=== PATIENT | female | born 1980 | race Two or more races ===

== ENCOUNTER → 2023-09-03 11:19 | Emergency (ER) | payer MEDICAID, OTHER, SELFPAY ==
[2023-09-05 22:53] LABS: C. trachomatis RNA TMA NOT DETECTED (NOT DETECTED); N. gonorrhoeae RNA TMA NOT DETECTED (NOT DETECTED)
== END ==
PROVIDERS: Emergency Provider Emergency Medicine
DX: R10.2 Pelvic and perineal pain (principal); L29.2 Pruritus vulvae
CPT/HCPCS: 36415; 81513; 87491; 87591; 99283

== ENCOUNTER 2023-09-03 15:55 | Emergency (ER) | payer MEDICAID, OTHER, SELFPAY ==
[2023-09-03 16:03] VITALS: BP 145/68; PULSE 82; RESP 18; TEMP 36.1; O2SAT 100
[2023-09-03 16:30] LABS: Appearance Urine Clear; Color Urine Yellow; Glucose Urine UA Negative (Negative); Leukocyte Esterase Urine Trace (Negative); Nitrite Urine Negative (Negative); Specific Gravity - Urine 1.015 (1.005-1.025); UMIC TRIGGER UACC YES; Urine Blood Trace (Negative); Urine Ketones Negative (Negative); Urine Protein Negative (Neg-Trace)
[2023-09-03 16:35] LABS: Bacteria Urine None Seen (None Seen); Hyaline Casts Urine 0-2 /LPF (0-2); WBC Urine 0-5 /HPF (0-5)
[2023-09-03 19:27] LABS: MANUAL DIFF FLAG NO
[2023-09-03 19:28] LABS: Basophils Absolute Auto 0.1 X10*3/uL (0.0-0.2); Basophils Percent Auto 0.9 % (0-2); Eosinophils Absolute Auto 0.3 X10*3/uL (0.0-0.4); Eosinophils Percent Auto 3.4 % (0-4); Hematocrit 43.6 % (37.0-47.0); Hemoglobin 14.2 g/dl (12.0-16.0); Imm Gran Abs Auto 0.01 X10*3/uL (0.00-0.03); Imm Gran Pct Auto 0.1 % (0.0-0.4); Lymphocytes Absolute Auto 3.1 X10*3/uL (1.2-4.9); Lymphocytes Percent Auto 39.4 % (20-40); Mean Corpuscular HGB Conc 32.6 g/dl (31.0-35.0); Mean Corpuscular Hemoglobin 28.9 pg (27.0-33.0); Mean Corpuscular Volume 88.8 fL (80.0-98.0); Mean Platelet Volume 9.3 fL (9.4-12.3); Monocytes Absolute Auto 0.6 X10*3/uL (0.1-1.2); Monocytes Percent Auto 7.4 % (2-11); Neutrophils Absolute Auto 3.8 x10*3/uL (2.0-8.3); Neutrophils Percent Auto 48.8 % (45-73); Platelet Count 393 X10*3/uL (160-400); Red Blood Count 4.91 X10*6/uL (4.20-5.50); Red Cell Distribution Width 13.5 % (11.0-16.0); White Blood Count 7.8 X10*3/uL (4.8-10.8)
[2023-09-03 19:45] LABS: Alanine Aminotransferase 26 U/L (0-31); Albumin Level 4.6 g/dL (3.5-5.0); Alkaline Phosphatase 56 U/L (39-117); Anion Gap 15 (12-20); Aspartate Amino Transferase 21 U/L (5-31); Bilirubin Total 0.6 mg/dL (0.0-1.0); Blood Urea Nitrogen 8 mg/dL (9-16); Calcium 9.7 mg/dL (8.4-10.2); Carbon Dioxide 22 mmol/L (22-29); Chloride 107 mmol/L (96-108); Creatinine Clr Calc Pharmacy 114.2; Estimated Glomerular Filt Rate > 60; Glucose Random 89 mg/dL (60-115); Potassium 3.5 mmol/L (3.3-5.1); Sodium 140 mmol/L (135-145); Total Protein 8.6 g/dL (6.5-8.0)
--- NOTE | 2023-09-04 01:19 | ED.FEMALEGU ---
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 Patient reports the last 3-4 months she has had intermittent lower back pain and pelvic pressure. She has had some occasional nausea and vomiting. She has also had some vaginal itching, vaginal discharge and vaginal discomfort. She moved here from [facility] 2 months ago. She was seen at [facility] this morning and had a pelvic exam and testing for gonorrhea, chlamydia and a BV panel but she does not know the results yet. Per patient she was told to come to the hospital to have lab work done. She tells me she misunderstood this and came to the emergency room instead. She denies any urinary symptoms. No fevers, chills, diarrhea, constipation. She is sexually active with 1 male partner. She has not concern for STDs. She is currently on Depo and received her last injection in June and has not had a menstrual cycle since then. Prior to this she was having regular menstrual cycles. She tells me she had been getting Pap smears in [facility] which were normal. Related Data Previous Rx's Medication Instructions Recorded clotrimazole 2 % vaginal cream 1 appful vaginal BEDTIME 3 days 09/04/23 #21 grams Allergies Allergy/AdvReac Type Severity Reaction Status Date / Time No Known Allergies Allergy Verified 09/03/23 16:02 Review of Systems Review of Systems: Yes all other systems are reviewed and are negative Constitutional: Constitutional: Reports no additional constitutional complaints, Denies body ache(s), Denies chills, Denies fever(s), Denies headache(s) and Denies weakness Eyes: Eyes: Reports no additional eye complaints and Denies change in vision ENT: Reports system reviewed and no additional complaints, except as documented, Denies dizziness, Denies headache(s), Denies nasal congestion, Denies nasal discharge and Denies neck pain Cardiovascular: Cardiovascular: Reports no additional cardiovascular complaints, Denies chest pain, Denies leg edema and Denies dyspnea Respiratory: Respiratory: Reports no additional respiratory complaints, Denies cough and Denies dyspnea Gastrointestinal: Gastrointestinal: Reports no additional gastrointestinal complaints, Denies abdominal pain, Denies diarrhea, Denies nausea and Denies vomiting Genitourinary: Genitourinary: Reports no additional female genitourinary complaints, Reports pelvic pain, Denies urinary incontinence, Reports vaginal discharge and Reports vaginal pruritus Musculoskeletal: Musculoskeletal: Reports no additional musculoskeletal complaints, Reports back pain, Denies arthralgias, Denies joint swelling, Denies neck pain, Denies numbness and Denies tingling Integumentary/Breasts: Skin/Breast: Reports system reviewed and no additional complaints, except as docu and Denies rash Neurologic: Reports system reviewed and no additional complaints, except as documented, Denies Abnormal speech present, Denies dizziness, Denies headache(s), Denies numbness, Denies tingling and Denies weakness PMFSH Past Medical History Attestation statement: The following information was validated with the patient. Source: old records reviewed and nursing notes reviewed Social History Social History Smoked in Last 30 Days: No Use of substances other than those prescribed or required for medical reasons: No Advance Directives: No Advance Directives Information Provided: No Patient : No Physical Exam Vital Signs: Vital Signs: Last Vital Signs Temp 97 F 09/03/23 16:03 Pulse 82 09/03/23 16:03 Resp 18 09/03/23 16:03 BP 145/68 H 09/03/23 16:03 Pulse Ox 100 09/03/23 16:03 O2 Del Method Room Air 09/03/23 16:03 BMI result Body Mass Index 30.0 Const: General: cooperative, healthy appearing, comfortable and no acute distress Orientation/consciousness: patient oriented x3 Limitations: no limitations HEENT: Head: Yes normal to inspection Ears: hearing grossly normal bilaterally General nose exam: Normal external nose present Face and sinus: Yes normal facial exam Mouth: Normal oral and palatal mucosa present Throat: Yes posterior oropharynx normal Eyes: General: appearance normal, both eyes and all related structures Pupils: Equal, round and reactive pupils present Neck: Neck: Yes normal visual inspection Chest: Chest palpation & inspection: normal inspection of the chest Resp: Effort & Inspection: normal respiratory effort Auscultation: clear to auscultation bilaterally Cardio: Rate: regular rate Rhythm: regular rhythm Peripheral pulses: Peripheral pulses 2+ throughout GI: Inspection: Yes normal to inspection Palpation (GI): Soft to palpation and nontender Auscultation: normal bowel sounds : 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 General: Yes no CVA tenderness External Female Exam: external swelling (erythema, scant vaginal discharge ) Back/Spine/Pelvis: Back: no CVA tenderness Thoracic/Lumbar Spine: thoracic and lumbar spine normal to inspection Skin: General skin exam: no rashes or lesions noted Neuro: General: patient oriented x3, no focal motor deficits and normal sensation to monofilament Cranial nerves: Yes Equal, round and reactive pupils present Cognition (Neuro): normal cognition Speech: No Abnormal speech present Gait exam (Neuro): Normal gait present Motor exam (neuro): 5/5 motor strength present throughout Extrem: General: Yes normal to inspection Course Course Course Narrative: Labs are unremarkable. UA shows no signs infection. Physical exam is consistent with vaginitis. Patient has no focal abdominal pain or flank pain to suggest need for CT abdomen and pelvis or pelvic ultrasound. She has low concern for STI and does not want treatment until she knows were her results are. She had a pelvic exam this morning I do not believe that she needs a repeat pelvic exam. Additionally I have low suspicion for pelvic inflammatory disease, tubo-ovarian abscess or ovarian torsion. Patient overall nontoxic, tolerating p.o.. I will discharge her home with clotrimazole topical with recommendations to continue to follow-up with [facility]. Reviewed worrisome signs and symptoms of when to return to the emergency room. Comfortable plan for discharge home. Medical Decision Making Medical Decision Making [facility] Narrative: 42-year-old female with no known medical history presents to the ER with multiple complaints. Patient reports the last 3-4 months she has had intermittent lower back pain and pelvic pressure. She has had some occasional nausea and vomiting. She has also had some vaginal itching, vaginal discharge and vaginal discomfort. She moved here from [facility] 2 months ago. She was seen at [facility] this morning and had a pelvic exam and testing for gonorrhea, chlamydia and a BV panel but she does not know the results yet. Per patient she was told to come to the hospital to have lab work done. She tells me she misunderstood this and came to the emergency room instead. She denies any urinary symptoms. No fevers, chills, diarrhea, constipation. She is sexually active with 1 male partner. She has not concern for STDs. She is currently on Depo and received her last injection in June and has not had a menstrual cycle since then. Prior to this she was having regular menstrual cycles. She tells me she had been getting Pap smears in [facility] which were normal. No focal abdominal pain on exam. No CVA tenderness. External vagina has swelling, irritation and scant vaginal discharge consistent with Lindsey. Patient had labs and a UA ordered from triage which I will review. Her swabs from her pelvic exam this morning from her primary care still pending. Differential Diagnosis Differential Diagnoses: The differential diagnosis associated with the presentation includes Vaginitis, STI, UTI Low concern for PID, tubo-ovarian abscess, ovarian torsion, renal colic, pyelonephritis Lab Data MDM Lab Attestation statement: I reviewed the patient's lab results. Unremarkable 09/03/23 19:22 09/03/23 19:22 Labs: Lab Results 09/03/23 09/03/23 Range/Units 16:17 19:22 WBC 7.8 (4.8-10.8) X10*3/uL RBC 4.91 (4.20-5.50) X10*6/uL Hgb 14.2 (12.0-16.0) g/dl Hct 43.6 (37.0-47.0) % MCV 88.8 (80.0-98.0) fL MCH 28.9 (27.0-33.0) pg MCHC 32.6 (31.0-35.0) g/dl RDW 13.5 (11.0-16.0) % Plt Count 393 (160-400) X10*3/uL MPV 9.3 L (9.4-12.3) fL Immature Gran % (Auto) 0.1 (0.0-0.4) % Neut % (Auto) 48.8 (45-73) % Lymph % (Auto) 39.4 (20-40) % [place] % (Auto) 7.4 (2-11) % Eos % (Auto) 3.4 (0-4) % Baso % (Auto) 0.9 (0-2) % Lymph # (Auto) 3.1 (1.2-4.9) X10*3/uL [place] # (Auto) 0.6 (0.1-1.2) X10*3/uL Eos # (Auto) 0.3 (0.0-0.4) X10*3/uL Baso # (Auto) 0.1 (0.0-0.2) X10*3/uL Abs Immat Gran (auto) 0.01 (0.00-0.03) X10*3/uL Absolute Neuts (auto) 3.8 (2.0-8.3) x10*3/uL Absolute Nucleated RBC 0.000 (0.0-0.012) X10*3/uL Nucleated RBC % (auto) 0.0 (0.0-0.2) /100WBC Sodium 140 (135-145) mmol/L Potassium 3.5 (3.3-5.1) mmol/L Chloride 107 (96-108) mmol/L Carbon Dioxide 22 (22-29) mmol/L Anion Gap 15 (12-20) BUN 8 L (9-16) mg/dL Creatinine 0.67 (0.5-1.4) mg/dL Estim Creat Clear Calc 114.2 Estimated GFR > 60 Random Glucose 89 (60-115) mg/dL Calcium 9.7 (8.4-10.2) mg/dL Total Bilirubin 0.6 (0.0-1.0) mg/dL AST 21 (5-31) U/L ALT 26 (0-31) U/L Alkaline Phosphatase 56 (39-117) U/L Total Protein 8.6 H (6.5-8.0) g/dL Albumin 4.6 (3.5-5.0) g/dL Urine Color Yellow Urine Appearance Clear Urine pH 6.0 (5.0-9.0) Ur Specific [place] 1.015 (1.005-1.025) Urine Protein Negative (Neg-Trace) mg/dL Urine Glucose (UA) Negative (Negative) mg/dL Urine Ketones Negative (Negative) mg/dL Urine Blood Trace H (Negative) Urine Nitrite Negative (Negative) Ur Leukocyte Esterase Trace H (Negative) Urine RBC 3-5 H (0-2) /HPF Urine WBC 0-5 (0-5) /HPF Ur Squamous Epith Cells 3-5 (0-2) /HPF Urine Bacteria None Seen (None Seen) Hyaline Casts 0-2 (0-2) /LPF Independent Historian Clinical information obtained from an independent historian. History obtained from or confirmed by: Spouse Discharge Plan Discharge Clinical Impression: Vaginitis Patient Disposition: Home, Self-Care Instructions: Yeast Infection (ED) Additional Instructions: Your blood work is normal Your swabs sent from the [facility] earlier are still pending We are treating you for a yeast infection Tu an?lisis de elsy es normal. Mayda hisopos enviados anteriormente desde [facility] [place] a?n est?n pendientes Te estamos tratando por amira candidiasis Prescriptions: New clotrimazole 2 % cream 1 appful vaginal BEDTIME 3 Days Qty: 21 0RF Referrals: Physician,None [Primary Care Provider] - 1 week Print Language: Slovak
--- NOTE | 2023-09-04 01:37 | PC.NURSE ---
On assessment pt stating that [facility] sent pt here for labwork only, not full exam. pt staes they had pelvic exam at [facility], and only requested labs to be completed. Provider notified.
== END 2023-09-04 02:01 | disposition home or self-care (01) ==
PROVIDERS: Emergency Medicine; Emergency Provider Internal Medicine
DX: N76.0 Acute vaginitis (principal)
CPT/HCPCS: 36415; 80053; 81001; 85025; 99283; 99284

== ENCOUNTER 2024-01-26 17:56 | Outpatient (REF) | payer MEDICAID, OTHER, SELFPAY ==
[2024-01-28 08:08] LABS: C. trachomatis RNA TMA NOT DETECTED (NOT DETECTED); Candida glabrata RNA NOT DETECTED (NOT DETECTED); Candida species RNA NOT DETECTED (NOT DETECTED); N. gonorrhoeae RNA TMA NOT DETECTED (NOT DETECTED); Trichomonas vaginalis RNA NOT DETECTED (NOT DETECTED)
[2024-01-31 03:44] LABS: C. trachomatis RNA TMA NOT DETECTED (NOT DETECTED); N. gonorrhoeae RNA TMA NOT DETECTED (NOT DETECTED)
[2024-01-31 09:18] LABS: HPV mRNA E6/E7 rflx Not Detected (Not Detected)
== END 2024-01-26 17:57 | disposition home or self-care (01) ==
LOC: HO.LNP 17:56
PROVIDERS: Visit Provider Emergency Medicine
DX: R10.30 Lower abdominal pain, unspecified (principal)
CPT/HCPCS: 81513; 87481; 87491; 87591; 87624; 87661; 88142

== ENCOUNTER 2024-02-17 11:03 | Outpatient (REF) | payer MEDICAID, OTHER, SELFPAY ==
--- NOTE | ~2024-02-17 | MM_ITS ---
EXAMINATION: MM SCREENING DIGITAL BREAST TOMOSYNTHESIS, BILATERAL CLINICAL INFORMATION: Screening. Asymptomatic. COMPARISON: Mammography: This is a baseline study. TECHNIQUE: Digital breast tomosynthesis is performed in both the craniocaudal and mediolateral oblique views along with computer-aided detection (CAD). Synthesized 2D images are generated from the tomosynthesis. FINDINGS: There are scattered areas of fibroglandular density (ACR BI-RADS breast composition Category b). There are no significant masses, abnormal calcifications, or other abnormalities. MM/MM tomosynthesis screening BI IMPRESSION: No mammographic evidence of malignancy. ASSESSMENT: BI-RADS BI-RADS 1 - Negative RECOMMENDATION: Routine annual mammography screening. 1 year F/U This examination should not preclude the clinical evaluation of a suspicious palpable abnormality. This patient's information was entered into a reminder system with a target due date for their next mammogram.
== END 2024-02-17 11:04 | disposition home or self-care (01) ==
LOC: HO.MAMMO 11:03
PROVIDERS: PCP Advanced Practice Midwife; Visit Provider Emergency Medicine
DX: Z12.31 Encounter for screening mammogram for malignant neoplasm of breast (principal)
CPT/HCPCS: 77063; 77067

== ENCOUNTER → 2024-02-17 11:30 | Outpatient (BNV) | payer SELFPAY | PROVIDERS: PCP Advanced Practice Midwife; Visit Provider Radiology Diagnostic Radiology | DX: Z12.31 Encounter for screening mammogram for malignant neoplasm of breast (principal) | CPT/HCPCS: 77063; 77067 ==

== ENCOUNTER 2025-01-11 10:23 | Outpatient (REF) | payer SELFPAY ==
[2025-01-11 11:18] LABS: Appearance Urine Turbid; Color Urine Yellow; Glucose Urine UA Negative (Negative); Leukocyte Esterase Urine Negative (Negative); Nitrite Urine Negative (Negative); Specific Gravity - Urine >= 1.030 (1.005-1.025); UMIC TRIGGER UACC YES; Urine Blood Small (1+) (Negative); Urine Ketones Trace mg/dL (Negative); Urine Protein Negative (Neg-Trace)
[2025-01-11 11:26] LABS: Bacteria Urine Trace (None Seen); Hyaline Casts Urine 0-2 /LPF (0-2); WBC Urine 0-5 /HPF (0-5)
[2025-01-11 11:27] LABS: MANUAL DIFF FLAG NO
[2025-01-11 11:31] LABS: Basophils Absolute Auto 0.1 X10*3/uL (0.0-0.2); Basophils Percent Auto 0.6 % (0-2); Eosinophils Absolute Auto 0.1 X10*3/uL (0.0-0.4); Eosinophils Percent Auto 1.7 % (0-4); Hematocrit 40.1 % (37.0-47.0); Imm Gran Abs Auto 0.03 X10*3/uL (0.00-0.03); Imm Gran Pct Auto 0.4 % (0.0-0.4); Lymphocytes Absolute Auto 2.3 X10*3/uL (1.2-4.9); Lymphocytes Percent Auto 28.8 % (20-40); Mean Corpuscular HGB Conc 32.4 g/dl (31.0-35.0); Mean Corpuscular Hemoglobin 28.6 pg (27.0-33.0); Mean Corpuscular Volume 88.1 fL (80.0-98.0); Mean Platelet Volume 10.2 fL (9.4-12.3); Monocytes Absolute Auto 0.5 X10*3/uL (0.1-1.2); Monocytes Percent Auto 6.3 % (2-11); Neutrophils Percent Auto 62.2 % (45-73); Platelet Count 424 X10*3/uL (160-400); Red Blood Count 4.55 X10*6/uL (4.20-5.50); Red Cell Distribution Width 14.1 % (11.0-16.0); White Blood Count 8.1 X10*3/uL (4.8-10.8)
[2025-01-11 11:50] LABS: Estimated Average Glucose 111 mg/dL; Hemoglobin A1c % 5.5 % (<6.0); Total Hemoglobin (HGBA1C) 3430.4172 umol/L
[2025-01-11 11:58] LABS: Alanine Aminotransferase 39 U/L (0-31); Albumin Level 4.3 g/dL (3.5-5.0); Alkaline Phosphatase 64 U/L (39-117); Anion Gap 11 (12-20); Aspartate Amino Transferase 29 U/L (5-31); Bilirubin Total 0.5 mg/dL (0.0-1.0); Blood Urea Nitrogen 10 mg/dL (9-16); Calcium 8.8 mg/dL (8.4-10.2); Carbon Dioxide 25 mmol/L (22-29); Chloride 108 mmol/L (96-108); Estimated Glomerular Filt Rate > 60; Glucose Random 91 mg/dL (60-115); Potassium 3.9 mmol/L (3.3-5.1); Sodium 140 mmol/L (135-145); Total Protein 8.1 g/dL (6.5-8.0)
[2025-01-11 12:18] LABS: TSH reflex Free T4 1.18 uIU/mL (0.32-4.0)
--- OUTSIDE RECORDS SUMMARY | 2025-01-11 12:35 | XMS_ITS | Encounter Summary ---
Author Organization [employer] Address [address] [place] [address] Care Team Providers Care Interface Engineer Name Role Phone Mary Lou Guzman MD Primary Care Provider [phone] Encounter Details Date Type Department Care Team (Latest Contact Info) Description 01/11/2025 Travel Social History Tobacco Use Types Packs/Day Years Used Date Smoking Tobacco: Never Passive Smoke Exposure: Never Smokeless Tobacco: Never Alcohol Use Standard Drinks/Week Comments Not Currently 0 (1 standard drink = 0.6 oz pur e alcohol) Depression Answer Date Recorded Patient Health Questionnaire-9 Score 0 01/11/2025 Patient Health Questionnaire-9 Score 0 01/11/2025 Last PHQ-9: Questionnaire Data Not on file 0 01/11/2025 Housing Stability Answer Date Recorded What is your housing situation today? I have pati jose 01/11/[address] you li ve. Do you have problems with any of the following? None of the above 01/11/2025 Food Insecurity Answer Date Recorded Within the past 12 months, y ou worried that your food would run out before you got money to buy more: Never True 12/30/2024 Within the past 12 months,th e food you bought just didn't last and you didn't have enough money to get more: Never True Transportation Answer Date Recorded In the past 12 months, has l ack of transportation kept you from medical appts, meetings, work or from getting things needed for daily living? No 01/11/2025 Utilities Answer Date Recorded In the past 12 months, has t he electric, gas, oil or water company threatened to shut off services in your home? No 12/30/2024 Depression Answer Date Recorded Patient Health Questionnaire-2 Score 0 01/11/2025 Internet Access Answer Date Recorded Internet Access Q1 Yes 12/30/2024 Internet Access Q2 Not on file 12/30/2024 Comments No Sex and Gender Information Value Date Recorded Sex Assigned at Female 09/03/2023 8:51 AM EDT Legal Sex Female 8:48 AM EDT Gender Identity Female 09/03/2023 8:51 AM EDT Sexual Orientation Straight 08/09/2024 12 :11 PM EDT documented as of this encounter Plan of Treatment Not on file documented as of this encounter Visit Diagnoses Not on filedocumented in this encounter Additional Health Concerns Assessment Noted Time PHQ-9 Depression Total Score: 0 01/12/20 9:20 AM EST documented as of this encounter Care Teams Interface Engineer Relationship Specialty Start Date End Date Mary Lou Guzman MD [address] [place] [address] PCP - General Family Medicine 01/11/25 documented as of this encounter
--- OUTSIDE RECORDS SUMMARY | 2025-01-11 12:36 | XMS_ITS | Encounter Summary ---
Author Organization [employer] Address [address] [place] [address] Care Team Providers Care Photostat Operator Name Role Phone Unavailable Primary Care Provider Unavailabl e Reason for Visit * Reason Comments Pre-visit Planning SDOH screening negat elvis and tobacco screening negative Encounter Details Date Type Department Care Team ([facility] st Contact Info) Description 12/30/2024 Patient Outreach [facility] [address] [place] [address] Mary Lou Guzman MD [address] [place] [address] Pre-visit Planning (SDOH screening negative and tobacco screening negative) Social History Tobacco Use Types Packs/Day Years Used Date Smoking Tobacco: Never Passive Smoke Exposure: Never Smokeless Tobacco: Never Alcohol Use Standard Drinks/Week Comments Not Currently 0 (1 standard drink = 0.6 oz pur e alcohol) Depression Answer Date Recorded Patient Health Questionnaire-9 Score 9 08/09/2024 Patient Health Questionnaire-9 Score 9 08/09/2024 Last PHQ-9: Questionnaire Data Not on file 0 08/09/2024 Housing Stability Answer Date Recorded What is your housing situation today? I have housing today, but I am worried about losing housing in the future 12/30/[address] you li ve. Do you have problems with any of the following? I am not sure 12/30/2024 Food Insecurity Answer Date Recorded Within the [...] from getting things needed for daily living? Yes, it has kept me from non-medical meetings, work, or getting things that I need 12/30/2024 Utilities Answer Date Recorded In the past 12 months, has t he electric, gas, oil or water company threatened to shut off services in your home? No 12/30/2024 Depression Answer Date Recorded Patient Health Questionnaire-2 Score 4 08/09/2024 Internet Access Answer Date Recorded Internet Access Q1 Yes 12/30/2024 Internet Access Q2 Not on file 12/30/2024 Comments Unknown Sex and Gender Information Value Date Recorded Sex Assigned at Female 09/03/2023 8:51 AM EDT Legal Sex Female 8:48 AM EDT Gender Identity Female 09/03/2023 8:51 AM EDT Sexual Orientation Straight 08/09/2024 12 :11 PM EDT documented as of this encounter Progress Notes * Smiley Tan - 12/30/2024 9:38 AM EST CC Smiley placed successful outbound call to patient for pre-visit planning. Patient name and confirmed. Patient confirms date and time, and has transportation arrangements. Biggest concern for appointment at this time is abdominal pain Appropriate screening completed in anticipation of appointment. Patient advised to bring to appointment a photo id and insurance card, SDCA positive. Patient looking for assistance with housing, transportation Referral will be placed. documented in this encounter Plan of Treatment Not on file documented as of this encounter Visit Diagnoses Not on filedocumented in this encounter Additional Health Concerns Assessment Noted Time PHQ-9 Depression Total Score: 9 08/09/20 24 2:02 PM EDT documented as of this encounter
--- OUTSIDE RECORDS SUMMARY | 2025-01-11 12:36 | XMS_ITS | Encounter Summary ---
Author Organization [employer] Address [address] [place] [address] Care Team Providers Care Bilingual Case Manager Name Role Phone Unavailable Primary Care Provider Unavailabl e Reason for Visit * Reason Comments Care Coordination CHW outreach for SDO H housing search-referral completed Encounter Details Date Type Department Care Team (Latest Contact Info) Description 12/30/2024 Patient Outreach [facility] [address] [place] [address] Mary Lou Guzman MD [address] [place] [address] Care Coordination (CHW outreach for SDOH housing search-referral completed ) Social History Tobacco Use Types Packs/Day Years [...] as of this encounter Progress Notes * Kelvin Villanueva - 12/30/2024 10:42 AM EST CHW Kelvin Villanueva, placed outbound call to patient for assistance with SDOH as a referral was received by the provider. Patient's name and were confirmed. Patient screened positive for the following SDOH housing insecurities. CHW referred patient to list of housing and applications mail out to address on file. Patient verbalizes understanding, and able to agree to follow up with housing search and call. Patient educated on extended clinic hours on Mondays through Wednesdays, and Walk-In Urgent Care Located in [facility]. Patient provided with after-hours line for [facility], , which offer night time triage service and option to transfer to extractions technician provider if needed. documented in this encounter Plan of Treatment Not on file documented as of this encounter Visit Diagnoses Not on filedocumented in this encounter Additional Health Concerns Assessment Noted Time PHQ-9 Depression Total Score: 9 08/09/20 24 2:02 PM EDT documented as of this encounter
--- OUTSIDE RECORDS SUMMARY | 2025-01-11 12:36 | XMS_ITS | Encounter Summary ---
Author Organization [employer] Address [address] [place] [address] [place] [address] Care Team Providers Care Associate Professor Of Violin Name Role Phone Unavailable Primary Care Provider Unavailabl e Reason for Visit * Reason Comments Routine Cleaning Dental Exam Encounter Details Date Type Department Care Team ([facility] st Contact Info) Description 01/03/2025 9:00 AM EST Office Visit [facility] [address] [place] [address] Kaylen Ortega Dental calculus (Primary Dx); Dental plaque; Subgingival dental calculus Social History Tobacco Use Types Packs/Day Years [...] PM EDT documented as of this encounter Last Filed Vital Signs Vital Sign Reading Time Taken Comments Blood Pressure 122/82 01/03/2025 8:53 AM EST Pulse - - Temperature - - Respiratory Rate - - Oxygen Saturation - - Inhaled Oxygen Concentration - - Weight - - Height - - Body Mass Index - - documented in this encounter Progress Notes * Jeremiah Jade DMD - 01/03/2025 9:00 AM EST C/C: dental exam and cold sensitivity at LR molar for a while I.O.E: localized plaque accumulation, sensitive to percussion and air of #30 E.O.E: wnl OCS: wnl Head and neck: wnl Radiographic: gen moderate periodontal bone loss, localized calculus accumulation, close to pulp filling #30 Dx: gen chronic moderate periodontitis, pulpitis #30 Tx: prophy, recall, endo consult #[address] Comfort Mcdaniel * Kaylen Ortega - 01/03/2025 9:00 AM EST Patient ID: Kathya Jo is a 44 y.o. female. Time Out: Timeout Date: 01/03/25, Timeout Time: 0849 (Dental Prophy Adult) Location: [facility] Tooth: Maxilla and Mandible Procedure: Exam and Prophylaxis Verified the above with patient, metallurgical laboratory assistant, and provider. Confirmed via patient's chart, intraorally and by radiographs. Health And Safety Trainer: not applicable Medical Hx: Vitals: Blood pressure 122/82. Medications, Med Hx reviewed with patient and updated in chart. Treatment Provided Dental procedures in this visit D1110 - PROPHYLAXIS - ADULT (Completed) Service provider: Kaylen Ortega Billing provider: Jeremiah Jade DMD D0120 - PERIODIC ORAL EVALUATION - ESTABLISHED PATIENT (Completed) Service provider: Jeremiah Jade DMD Billing provider: Jeremiah Jade DMD [id number] - ORAL HYGIENE INSTRUCTIONS (Completed) Service provider: Kaylen Ortega Billing provider: Jeremiah Jade DMD [id number] - CASE PRESENTATION, DETAILED AND EXTENSIVE TREATMENT PLANNING (Completed) Service provider: Kaylen Ortega Billing provider: Jeremiah Jade DMD Instruments Used: Ultrasonic Scalers, Hand Scalers, Prophy angle, and floss Fluoride: N/A Oral Cancer Screening: No lesions Head/Neck Exam: No Lesions Calculus: Moderate and Generalized Plaque: Moderate and Generalized Stain: Light and Generalized Bleeding: Heavy and Generalized Gingiva: Inflamed [place]: Poor Perio Chart: Not due Oral hygiene instructions provided to patient including brushing technique and flossing. Recommendations: [place] two times daily, modified martin technique, Floss daily, Electric toothbrush, Soft bristle toothbrush, [place] Tongue, Anti-sensitivity toothpaste Recall Frequency: 6 mo NV: 6mrc Hygienist: Kaylen Ortega RDH Cosigned by Jeremiah Jade DMD at 01/06/2025 9:23 AM EST documented in this encounter Plan of Treatment Scheduled Orders Name Type Priority Associated Diagnoses Orde r Schedule CONSULTATION - DIAGNOSTIC SERVICE PROVIDED BY DENTIST OR PHYSICIAN OTHER THAN REQUESTING DENTIST OR PHYSICIAN Dental Routine 1 Occurrenc es starting 01/03/2025 PROPHYLAXIS - ADULT Dental Routine 1 Occ urrences starting 01/03/2025 documented as of this encounter Procedures Procedure Name Priority Date/Time Associated Diagnosis Comments PROPHYLAXIS - ADULT Routine 01/03/2025 9 :00 AM EST Dental calculus Dental plaque Subgingival dental calculus PERIODIC ORAL EVALUATION - ESTABLISHED PATIENT Routine 01/03/2025 9:00 AM EST ORAL HYGIENE INSTRUCTIONS Routine 01/03/2025 9:00 AM EST Dental calculus Dental plaque Subgingival dental calculus CASE PRESENTATION, DETAILED AND EXTENSIVE TREATMENT PLANNING Routine 01/03/2025 9:00 AM EST documented in this encounter Visit Diagnoses Diagnosis Dental calculus- Primary Accretions on teeth Dental plaque Accretions on teeth Subgingival dental calculus Accretions on teeth documented in this encounter Additional Health Concerns Assessment Noted Time PHQ-9 Depression Total Score: 9 08/09/20 24 2:02 PM EDT documented as of this encounter
--- OUTSIDE RECORDS SUMMARY | 2025-01-11 12:36 | XMS_ITS | Clinical Summary ---
Author Organization [employer] Address [address] [place] [address] Care Team Providers Care Wood Grinder Name Role Phone Mary Lou Guzman MD Primary Care Provider [phone] Allergies No known active allergies Medications * This document contains information received from the source organization and may not represent a complete record from that organization. Blood Pressure Monitoring (Omron 3 Series BP Monitor) device USE TO CHECK BLOOD PRESSURE TWICE DAILY 09/03/20 Active Debrox 6.5 % otic solution PLACE 5 DROPS IN THE RIGHT EAR TWICE DAILY FOR FOUR DAYS 09/03/20 23 Active 3 Day Vaginal 2 % vaginal cream APPLY VAGINALLY AT BEDTIME FOR 3 DAYS 09/05/20 23 Active acetaminophen (Tylenol) 500 MG tabletIndications :Symptomatic irreversible pulpitis Take 1 tablet (500 mg) by mouth every 6 (six) hours if needed for mild pain for up to 15 doses. 15 tablet 01/27/20 24 Active Additional Information Patient not taking.Reported on 01/03/2025 hydrOXYzine pamoate (Vistaril) 25 MG capsule Take 1 capsule (25 mg) by mouth if needed at bedtime for anxiety. 30 capsule 07/19/20 24 Active medroxyPROGESTERo ne (Depo-Provera) 150 MG/ML injection Inject 1 mL (150 mg) into the muscle every 3 (three) months. 1 mL 05/24/20 24 025 Discontin ued(Thera py completed ) omeprazole OTC (PriLOSEC OTC) 20 MG EC tablet Take 1 tablet (20 mg) by mouth before breakfast. Do not crush, chew, or split. 30 tablet 07/19/20 24 025 Discontin ued(Thera py completed ) medroxyPROGESTERo ne (Depo-Provera) 150 MG/ML injectionIndicati ons:Family planning, Depo-Provera contraception monitoring/admini stration Inject 1 mL (150 mg) into the muscle every 3 (three) months. 1 mL 08/09/20 24 025 Discontin ued(Thera py completed ) Active Problems Problem Noted Date Diagnosed Date Adjustment disorder with anxious mood 07/19/2024 Assessment & Plan (08/09/2024 2:51 PM EDT): During IBH Consult Kathya presenting with depressed mood, hopelessness, irritable mood, loss of interests/pleasure , sense of isolation/loneliness , isolating, fatigue/loss of energy; for a period of 0-6 mo, for most or all symptoms in the context of and family issues. Patient's grandmother in [place] last month. Kathya wasn't able to travel and do proper closure. Since then, she has felt grief symptoms with no complication and increase of anxiety. Pt would like to connect with CM to assist with SDOH. I will place referral for CM. Due to limited coverage, pt is unable to seek OP services externally, clinician will provide support as needed. clinician engaged pt with active/reflective listening, validation of emotions and provided emphatic approach. Reviewed and assessed for risk, current stressors and protective factors. Assessment & Plan (07/26/2024 10:20 AM EDT): During IBH Consult Kathya presenting with excessive worry/anxiety, anxiety/worry associated to restlessness and/or feeling keyed-up/On edge , difficulty concentrating and/or mind going blank , irritability, and sleep disturbance difficulty falling asleep, and Fear intense feeling of sadness, anger and denial associated with the loss of her grandmother; for a period of 0-6 mo, for most or all symptoms in the context of and relationship issues. Kathya presented to [facility] with medical concerns and anxiety presentation of sxs. She reported her grandmother a week ago in [place]. Kathya wasn't able to travel and do proper closure. Since then she has felt bereavement symptoms with no complication and increase of anxiety. Difficulty to adjusting and accepting is main concern for pt. Lack of social support and complicated relationship with her is also identified as main trigger. clinician engaged pt with active/reflective listening, validation of emotions and provided emphatic approach. Reviewed and assessed for risk, current stressors and protective factors. Kathya will start medication for sxs (see PCP note) and will follow-up with clinician due to lack of coverage for services. Bereavement 07/19/2024 Assessment & Plan (08/09/2024 2:51 PM EDT): During IBH Consult Kathya presenting with depressed mood, hopelessness, irritable mood, loss of interests/pleasure , sense of isolation/loneliness , isolating, fatigue/loss of energy; for a period of 0-6 mo, for most or all symptoms in the context of and family issues. Patient's grandmother in [place] last month. Kathya wasn't able to travel and do proper closure. Since then, she has felt grief symptoms with no complication and increase of anxiety. Pt would like to connect with CM to assist with SDOH. I will place referral for CM. Due to limited coverage, pt is unable to seek OP services externally, clinician will provide support as needed. clinician engaged pt with active/reflective listening, validation of emotions and provided emphatic approach. Reviewed and assessed for risk, current stressors and protective factors. Assessment & Plan (07/26/2024 10:20 AM EDT): During IBH Consult Kathya presenting with excessive worry/anxiety, anxiety/worry associated to restlessness and/or feeling keyed-up/On edge , difficulty concentrating and/or mind going blank , irritability, and sleep disturbance difficulty falling asleep, and Fear intense feeling of sadness, anger and denial associated with the loss of her grandmother; for a period of 0-6 mo, for most or all symptoms in the context of and relationship issues. Kathya presented to [facility] with medical concerns and anxiety presentation of sxs. She reported her grandmother a week ago in [place]. Kathya wasn't able to travel and do proper closure. Since then she has felt bereavement symptoms with no complication and increase of anxiety. Difficulty to adjusting and accepting is main concern for pt. Lack of social support and complicated relationship with her is also identified as main trigger. clinician engaged pt with active/reflective listening, validation of emotions and provided emphatic approach. Reviewed and assessed for risk, current stressors and protective factors. Kathya will start medication for sxs (see PCP note) and will follow-up with clinician due to lack of coverage for services. Hepatitis B 01/26/2024 Assessment & Plan (01/26/2024 12:24 PM EDT): -patient reported history -labs ordered Pain of both breasts 01/26/2024 Assessment & Plan (01/26/2024 12:03 PM EDT): -pain may be due to remnants of menses -will treat symptoms with naproxen 250 mg two times daily -mammogram screening ordered -RTC if symptoms worsen; redness, hot to touch, skin changes, or nipple drainage present. Lower abdominal pain 01/26/2024 Assessment & Plan (01/26/2024 12:00 PM EDT): -pain my be due to menses -possible infection based on assessment findings -pelvic exam, pap and STI test completed -will provide treatment if infection present -pelvic and transvaginal US ordered for structural visualization -RTC with worsening symptoms, changes in bowel habits, vaginal discharge, or fever Encounters * This document contains information received from the source organization and may not represent a complete record from that organization. Date Type Department Care Team Description 01/11/2025 9:45 AM EST Office Visit [facility] [address] [place] [phone] Mary Lou Guzman MD Lower abdominal pain (Primary Dx); Encounter for immunization 01/11/2025 Travel 01/03/2025 9:00 AM EST Office Visit [facility] [address] [place] [address] Kaylen Ortega Dental calculus (Primary Dx); Dental plaque; Subgingival dental calculus 12/30/2024 Patient Outreach [facility] [address] [place] [address] Mary Lou Guzman MD Care Coordination (CHW outreach for SDSC housing search-referral completed ) 12/30/2024 Patient Outreach [facility] [address] [place], [place] [phone] Mary Lou Guzman MD Pre-visit Planning (SDOH screening negative and tobacco screening negative) from Last 3 Months Immunizations Name Administration Dates Next Due Influenza, seasonal, injectable, preservative fr ee 01/11/2025 Pfizer Covid-19 Vaccine 12+ 01/11/2025 Social History Tobacco Use Types Packs/Day Years Used Date Smoking Tobacco: Never Passive Smoke Exposure: Never Smokeless Tobacco: Never Tobacco Cessation:Counseling Given: Not Answered Alcohol Use Standard Drinks/Week Comments Not Currently [...] Orientation Straight 08/09/2024 12 :11 PM EDT Last Filed Vital Signs Vital Sign Reading Time Taken Comments Blood Pressure 130/79 01/11/2025 9:18 AM EST Pulse 86 01/11/2025 9:18 AM EST Temperature 37.1 ??C (98.7 ??F) 01/11/2025 9:18 AM ES T Respiratory Rate 20 01/11/2025 9:18 AM EST Oxygen Saturation 100% 01/11/2025 9:18 AM EST Inhaled Oxygen Concentration - - Weight 86.6 kg (191 lb) 01/11/2025 9:18 AM EST Height 158.9 cm (5' 2.55 ) 01/11/2025 9:18 AM ES T Body Mass Index 34.32 01/11/2025 9:18 AM EST Plan of Treatment Health Maintenance Due Date Last Done Comments HIV Screening 1980 Family Planning (PISQ) 1996 Hepatitis C Screening 1999 DTaP/Tdap/Td Vaccines (1 - Tdap) 2000 Hepatitis A Vaccines (1 of 2 - Risk 2-dose series) 2000 Hepatitis B Vaccines (1 of 3 - 19+ 3-dose series) 2000 Dental X-Ray: Bitewings 05/25/2025 05/24/2024 Dental Oral Exam 07/04/2025 01/03/2025, 05/24/2024 Dental Prophylaxis 07/04/2025 01/03/2025, 06/22/2024 Alcohol/Substance Use Screening 01/11/2026 01/11/2025 Depression Screening 01/11/2026 01/11/2025, 01/11/2025 SDOH Screening 01/11/2026 01/11/2025 Tobacco Screening 01/11/2026 01/11/2025 Mammogram 02/16/2026 02/17/2024 Pap Smear 01/25/2027 01/26/2024 Dental X-Ray: Full Mouth 05/25/2027 05/24/2024 Cervical Cancer Screening 01/25/2029 HPV/Cotest 01/25/2029 01/26/2024 Zoster Vaccines (1 of 2) 2031 RSV Patients and Patients Aged 60 years or older (1 - 1-dose 75+ series) 2056 COVID-19 Vaccine Completed 01/11/2025 Influenza Vaccine Completed 01/11/2025 HIB Vaccines Aged Out No longer eligi ble based on patient's age to complete this topic HPV Vaccines Aged Out No longer eligi ble based on patient's age to complete this topic IPV Vaccines Aged Out No longer eligi ble based on patient's age to complete this topic Meningococcal Vaccine Aged Out No randall marcos eligible based on patient's age to complete this topic Pneumococcal Vaccine: Pediatrics (0 to 5 Years) and At-Risk Patients (6 to 49) Years) Aged Out No longer eligible b ased on patient's age to complete this topic RSV under 20 months Aged Out No longe r eligible based on patient's age to complete this topic Rotavirus Vaccines Aged Out No longer eligible based on patient's age to complete this topic Procedures Procedure Name Priority Date/Time Associated Diagnosis Comments URINALYSIS, COMPLETE, WITH REFLEX TO CULTURE Routine 01/11/2025 10:27 AM EST Lower abdominal pain HEMOGLOBIN A1C Routine 01/11/2025 10:27 AM EST Lower abdominal pain COMPREHENSIVE METABOLIC PANEL Routine 01/11/2025 10:27 AM EST Lower abdominal pain CBC WITH AUTO DIFFERENTIAL Routine 01/11/2025 10:27 AM EST Lower abdominal pain TSH W/REFLEX TO FT4 Routine 01/11/2025 1 0:27 AM EST Lower abdominal pain ORAL HYGIENE INSTRUCTIONS Routine 01/03/2025 9:00 AM EST Dental calculus Dental plaque Subgingival dental calculus CASE PRESENTATION, DETAILED AND EXTENSIVE TREATMENT PLANNING Routine 01/03/2025 9:00 AM EST PROPHYLAXIS - ADULT Routine 01/03/2025 9 :00 AM EST Dental calculus Dental plaque Subgingival dental calculus PERIODIC ORAL EVALUATION - ESTABLISHED PATIENT Routine 01/03/2025 9:00 AM EST INTRAORAL - COMPLETE SERIES OF RADIOGRAPHIC IMAGES Routine 05/24/2024 10:30 AM EDT BI MAMMOGRAM SCREENING TOMOSYNTHESIS BILATERAL Routine 02/17/2024 11:35 AM EDT Encounter for screening mammogram for malignant neoplasm of breast HPV MRNA E6/E7 REFLEX TO HPV 16, 18/45 Routine 01/26/2024 2:03 PM EDT PAP SMEAR Routine 01/26/2024 2:03 PM EDT from Last 3 Months or Most Recently Relevant to Health Maintenance Results * (ABNORMAL) Urinalysis, Complete, with Reflex to Culture (01/11/2025 10:27 AM EST) Color Urine Yellow [facility] Appearance Urine Turbid [facility] PH 6.0 5.0 - 9.0 [facility] Glucose Urine UA Negative Negative mg/dL [facility] Urine Blood Small (1+)(A) Negative [facility] Specific [place] - Urine >=1.030(H) 1.005 - 1.025 [facility] Urine Protein Negative Neg-Trace mg/dL [facility] Urine Ketones Trace Negative mg/dL [facility] Nitrite Urine Negative Negative [facility] Leukocyte Esterase Urine Negative Negative [facility] RBC Urine 3-5(A) 0 - 2 /HPF [facility] Urine WBC 0-5 0 - 5 /HPF [facility] Urine Squamous Epithelial Cell 6-10 0 - 2 /HPF [facility] Urine Bacteria Trace None Seen [facility] Hyaline Casts, Urine 0-2 0 - 2 /LPF [facility] Urine 01/11/2025 10:2 7 AM EST 01/11/2025 11:12 AM EST Narrative [facility] - 01/11/2025 11:26 AM EST Urine, Clean Catch us Mary Lou Guzman MD LAB URINE ORDERABLES Final Res ult [facility] [address] [place] [address] [phone] * TSH W/Reflex to FT4 (01/11/2025 10:27 AM EST) TSH reflex Free T4 1.18 0.32 - 4.0 uIU/mL [facility] Blood Venous blood specimen / Unknown 01/11/2025 10:27 AM EST 01/11/2025 11:24 AM EST us Mary Lou Guzman MD LAB BLOOD ORDERABLES Final Res ult [facility] [address] [place] [address] [phone] * (ABNORMAL) CBC auto differential (01/11/2025 10:27 AM EST) White Blood Count 8.1 4.8 - 10.8 X10*3/uL [facility] Red Blood Count 4.55 4.20 - 5.50 X10*6/uL [facility] Hemoglobin 13.0 12.0 - 16.0 g/dl [facility] Hematocrit 40.1 37.0 - 47.0 % [facility] Mean Corpuscular Volume 88.1 80.0 - 98.0 fL [facility] Mean Corpuscular Hemoglobin 28.6 27.0 - 33.0 pg [facility] Mean Corpuscular HGB Conc 32.4 31.0 - 35.0 g/dl [facility] Red Cell Distribution Width 14.1 11.0 - 16.0 % [facility] Platelet Count 424(H) 160 - 400 X10*3/uL [facility] Mean Platelet Volume 10.2 9.4 - 12.3 fL [facility] Neutrophils Percent Auto 62.2 45 - 73 % [facility] Imm Gran Pct Auto 0.4 0.0 - 0.4 % [facility] Lymphocytes Percent Auto 28.8 20 - 40 % [facility] Monocytes Percent Auto 6.3 2 - 11 % [facility] Eosinophils Percent Auto 1.7 0 - 4 % [facility] Basophils Percent Auto 0.6 0 - 2 % [facility] NRBC Pct Auto 0.0 0.0 - 0.2 /100WBC [facility] Neutrophils Absolute Auto 5.0 2.0 - 8.3 x10*3/uL [facility] Imm Gran Abs Auto 0.03 0.00 - 0.03 X10*3/uL [facility] Lymphocytes Absolute Auto 2.3 1.2 - 4.9 X10*3/uL [facility] Monocytes Absolute Auto 0.5 0.1 - 1.2 X10*3/uL [facility] Eosinophils Absolute Auto 0.1 0.0 - 0.4 X10*3/uL [facility] Basophils Absolute Auto 0.1 0.0 - 0.2 X10*3/uL [facility] NRBC Abs Auto 0.000 0.0 - 0.012 X10*3/uL [facility] Blood Venous blood specimen / Unknown 01/11/2025 10:27 AM EST 01/11/2025 11:24 AM EST us Mary Lou Guzman MD LAB BLOOD ORDERABLES Final Res ult [facility] [address] [place] [phone] * Hemoglobin A1c (01/11/2025 10:27 AM EST) Hemoglobin A1c 5.5 <6.0 % [facility] Comment:Hemoglobin A1C Refer ence Range Adults: 4.8 - 6.0 % Non diabetic: < 6.0 % Goal: < 7.0 %Additional Action Suggested: > 8.0 %Note: Hemoglobin A1c results are invalid for patients with abnormal amounts of HbF. Blood transfusions may impact the HbA1c concentration in the patient sample. Estimated Average Glucose 111 mg/dL [facility] Comment:eAG = Estimated ave rage glucose which is %A1C expressed asaverage glucose, using the formula of the [id number] Glucose study (ADAG), Diabetes Care, Vol.31,#8,Jun. 2007 Blood Venous blood specimen / Unknown 01/11/2025 10:27 AM EST 01/11/2025 11:24 AM EST Mary Lou Guzman MD LAB BLOOD ORDERABLES Final Res ult [facility] [address] [place] [address] [phone] * (ABNORMAL) Comprehensive Metabolic Panel (01/11/2025 10:27 AM EST) Sodium 140 135 - 145 mmol/L [facility] Potassium 3.9 3.3 - 5.1 mmol/L [facility] Chloride 108 96 - 108 mmol/L [facility] Carbon Dioxide 25 22 - 29 mmol/L [facility] Anion Gap 11(L) 12 - 20 [facility] Urea Nitrogen (BUN) 10 9 - 16 mg/dL [facility] Creatinine, Serum 0.64 0.5 - 1.4 mg/dL [facility] Estimated Glomerular Filt Rate >60 [facility] Comment:Chronic Kidney Disea se: Estimated GFR < 60 mL/min/[id number] Kidney Disease: Estimated GFR < 15 mL/min/1.73m2 Glucose 91 60 - 115 mg/dL [facility] Calcium 8.8 8.4 - 10.2 mg/dL [facility] Bilirubin, Total 0.5 0.0 - 1.0 mg/dL [facility] Aspartate Amino Transferase 29 5 - 31 U/L [facility] Alanine Aminotransferase 39(H) 0 - 31 U/L [facility] Total Protein 8.1(H) 6.5 - 8.0 g/dL [facility] Albumin Level 4.3 3.5 - 5.0 g/dL [facility] Alkaline Phosphatase 64 39 - 117 U/L [facility] Blood Venous blood specimen / Unknown 01/11/2025 10:27 AM EST 01/11/2025 11:24 AM EST Mary Lou Guzman MD LAB BLOOD ORDERABLES Final Res ult [facility] [address] [place] [phone] * BI Mammogram Screening Tomosynthesis Bilateral (02/17/2024 11:35 AM EDT) Anatomical Region Laterality Modality Breast Bilateral Mammography 02/17/2024 11:3 5 AM EDT Narrative 02/23/2024 5:34 AM EDT ? [facility] [place] ? [address] ?[place] [phone] ? Mammography Report ? Signed ? Patient: Kathya Hair ?MR#: [id number] ?? [id number] ? : 1980 ?Acct:[id number] ? Age/Sex: 43 / F ?ADM Date: 02/17/24 ? Loc: HO.MAMMO ? Attending Dr: Catherine Mcadams APPLIED BIOLOGY PROFESSOR ? Ordering Physician: CATHERINE MCADAMS APPLIED BIOLOGY PROFESSOR ?Results: 1Negati ?? ve ? Date of Service: 02/17/24 ?Follow Up: 1 Year From Orig ?? inal Mammogram ? Procedure(s): MM tomosynthesis screening BI ?? Accession Number(s): [id number] ? cc: CATHERINE MCADAMS APPLIED BIOLOGY PROFESSOR; GASPER PHILLIPS CNM ? EXAMINATION: ?? MM SCREENING DIGITAL BREAST TOMOSYNTHESIS, BILATERAL ? CLINICAL INFORMATION: ? Screening. Asymptomatic. ? COMPARISON: ?? Mammography: This is a baseline study. ? TECHNIQUE: ?? Digital breast tomosynthesis is performed in both the craniocaudal and ?? mediolateral oblique views along with computer-aided detection (CAD). ?? Synthesized 2D images are generated from the tomosynthesis. ? FINDINGS: ?? There are scattered areas of fibroglandular density (ACR BI-RADS breast ?? composition Category b). ? There are no significant masses, abnormal calcifications, or other ?? abnormalities. ? MM/MM tomosynthesis screening BI ?? IMPRESSION: ?? No mammographic evidence of malignancy. ? ASSESSMENT: ? BI-RADS BI-RADS 1 - Negative ? RECOMMENDATION: ?? Routine annual mammography screening. ? 1 year F/U ? This examination should not preclude the clinical evaluation of a ?? suspicious palpable abnormality. ? This patient's information was entered into a reminder system with a ?? target due date for their next mammogram. ? Dictated By: ?Silvia Barnett MD ? Signed By: ?<Electronically signed by Silvia Barnett MD in OV> ? 02/23/24 0530 ? DD/ 1135 ? TD/TT: ? Area Attendant: ? Procedure Note Boris, Image - 02/23/2024 [facility] [address] [place] [address] Mammography Report Signed Patient: Moreno Hair#: [id number] : 1980Acct:[id number] Age/Sex: 43 / FADM Date: 02/17/24 Loc: [facility] Attending Dr: Catherine Mcadams NP Ordering Physician: CATHERINE MCADAMSesults: 1Negati grayson Date of Service: 02/17/24Follow Up: 1 Year From Orig inal Mammogram Procedure(s): MM tomosynthesis screening BI Accession Number(s): [id number] cc: CATHERINE MCADAMS APPLIED BIOLOGY PROFESSOR; GASPER PHILLIPS CNM EXAMINATION: MM SCREENING DIGITAL BREAST TOMOSYNTHESIS, BILATERAL CLINICAL INFORMATION: Screening. Asymptomatic. COMPARISON: Mammography: This is a baseline study. TECHNIQUE: Digital breast tomosynthesis is performed in both the craniocaudal and mediolateral oblique views along with computer-aided detection (CAD). Synthesized 2D images are generated from the tomosynthesis. FINDINGS: There are scattered areas of fibroglandular density (ACR BI-RADS breast composition Category b). There are no significant masses, abnormal calcifications, or other abnormalities. MM/MM tomosynthesis screening BI IMPRESSION: No mammographic evidence of malignancy. ASSESSMENT: BI-RADS BI-RADS 1 - Negative RECOMMENDATION: Routine annual mammography screening. 1 year F/U This examination should not preclude the clinical evaluation of a suspicious palpable abnormality. This patient's information was entered into a reminder system with a target due date for their next mammogram. Dictated By: Silvia Barnett MD Signed By: <Electronically signed by Silvia Barnett MD in OV> 02/23/24 0530 DD/ 1135 TD/TT: Area Attendant: Catherine Mcadams [facility] BI PROCEDURES Final Result * HPV mRNA E6/E7 w/Reflex to HPV Genotypes 16, 18/45 (01/26/2024 2:03 PM EDT) HPV nRNA E6/E7 Not Detected Not Detected [facility] Comment:Methodology: Transcr iption-Mediated AmplificationThis assay detects E6/E7 viral messenger RNA (mRNA) from 14high-risk HPV types (16,18,31,33,35,39,45,51,52,56,58,59,66,68).Cervical sources are required for HPV testing.If a vaginal source from a patient who has had atotal hysterectomy with removal of cervix wassubmitted, please contact the testing laboratoryfor alternative testing options.For additional information, please refer [email or web address](This link if provided for information/educational purposes only.)THIS TEST WAS PERFORMED AT:[address] [place] [phone] OMER MD HPV mRNA E6/E7 TNP [facility] HPV 16 RNA TNP [facility] HPV 18/45 RNA TNP [facility] 01/26/2024 2:03 PM EDT 01/27/2024 10:20 AM EDT us Catherine Mcadams SPREADING MACHINE OPERATOR LAB CYTOLOGY ORDERABLES Final Result [facility] [address] [place] [phone] * Pap Smear (01/26/2024 2:03 PM EDT) 01/26/2024 2:03 PM EDT 01/27/2024 10:20 AM EDT Narrative [facility] - 02/06/2024 6:54 AM EDT ----- ------- Name: Kathya Hair ? Age/Sex: 43/F ? : 1980 Unit#: [id number] ?? Attend Dr: CATHERINE MCADAMS APPLIED BIOLOGY PROFESSOR ?Re01/26/24 ?Status: DEP REF ? Location: HO.LNP ?Disch: ? ----- ------- SPEC : [id number] ? RECD: 01/27/24-1020 ? STATUS: ??SOUT ? REQ NUM: [id number] ? ROYA: 01/26/24-1403 ? SUBM DR: CATHERINE MCADAMS APPLIED BIOLOGY PROFESSOR ? ENTERED: ??01/27/24-1221 ?SP TYPE: Pap Smr ?OTHR DR: ? ORDERED: ??Pap Smear ? Interpretation ?? Satisfactory for evaluation. ?? Negative for intraepithelial lesion or malignancy. ?HPV mRNA E6/E7: ?NOT DETECTED ? This assay detects E6/E7 viral messenger RNA (mRNA) from 14 high-risk HPV types (16, 18, ?? 31, 33, 35, 39, 45, 51, 52, 56, 58, 59, 66, 68) ?? HPV testing performed by [employer], [place], [place]. ??See reference laboratory ?? portion of the EMR for entire report. ?Clinical Information LMP: 01/20/2024 Previous PAP test: Unknown date, WNL Other history: No known hx of HPV or ASCUS, lower abdominal pain ? Material Received ?? ThinPrep-Vaginal/Cervical ----- ------- Signed (signature on file) ARUN Meeks (ASCP) 02/06/24 0654 ? ----- ------- ? END OF REPORT ? us Catherine Mcadams SPREADING MACHINE OPERATOR LAB CYTOLOGY ORDERABLES Final Result [facility] [address] [place], [place] [phone] from Last 3 Months or Most Recently Relevant to Health Maintenance Insurance [employer] [employer] [place] ADULT Care Teams Wood Grinder Relationship Specialty Start Date End Date Mary Lou Guzman MD [address] [place] [phone] PCP - General Family Medicine 01/11/25
--- OUTSIDE RECORDS SUMMARY | 2025-01-11 12:36 | XMS_ITS | Encounter Summary ---
Author Organization [employer] Address [address] [place] [address] Care Team Providers Care Contract Processor Name Role Phone Mary Lou Guzman MD Primary Care Provider [phone] Reason for Visit * Reason Comments Establish Care Encounter Details Date Type Department Care Team (Late st Contact Info) Description 01/11/2025 9:45 AM EST Office Visit [facility] [address], [place] [phone] Mary Lou Guzman MD [address] [place], [place] [phone] Lower abdominal pain (Primary Dx); Encounter for immunization Social History Tobacco Use Types Packs/Day Years [...] 37.1 ??C (98.7 ??F) 01/11/2025 9:[address] Respiratory Rate 20 01/11/2025 9:18 AM EST Oxygen Saturation 100% 01/11/2025 9:18 AM EST Inhaled Oxygen Concentration - - Weight 86.6 kg (191 lb) 01/11/2025 9:18 AM EST Height 158.9 cm (5' 2.55 ) 01/11/2025 9:18 AM ES T Body Mass Index 34.32 01/11/2025 9:18 AM EST documented in this encounter Plan of Treatment Scheduled Orders Name Type Priority Associated Diagnoses Orde r Schedule Bacterial Vaginosis Panel Microbiology Routine Lower abdominal pain Ordered: 01/11/2025 HIV-1/2 Antigen and Antibodies, Fourth Generation, with Reflexes Lab Routine Lower abdominal pain Expected: 01/11/2025 (Approximate), Expires: 01/11/2026 Hepatitis C Antibody with Reflex to HCV, RNA, Quantitative, Real-Time PCR Lab Routine Lower abdominal pain Expected: 01/11/2025, Expires: 01/11/2026 documented as of this encounter Procedures Procedure Name Priority Date/Time Associated Diagnosis Comments URINALYSIS, COMPLETE, WITH REFLEX TO CULTURE Routine 01/11/2025 10:27 AM EST Lower abdominal pain TSH W/REFLEX TO FT4 Routine 01/11/2025 1 0:27 AM EST Lower abdominal pain CBC WITH AUTO DIFFERENTIAL Routine 01/11/2025 10:27 AM EST Lower abdominal pain HEMOGLOBIN A1C Routine 01/11/2025 10:27 AM EST Lower abdominal pain COMPREHENSIVE METABOLIC PANEL Routine 01/11/2025 10:27 AM EST Lower abdominal pain documented in this encounter Results * (ABNORMAL) Urinalysis, Complete, with Reflex to Culture (01/11/2025 10:27 AM EST) Color Urine Yellow [facility] Appearance Urine Turbid [facility] PH 6.0 5.0 - 9.0 [facility] Glucose Urine UA Negative Negative mg/dL [facility] Urine Blood Small (1+)(A) Negative [facility] Specific [place] - Urine >=1.030(H) 1.005 - 1.025 [facility] Urine Protein Negative Neg-Trace mg/dL [facility] Urine Ketones Trace Negative mg/dL [facility] Nitrite Urine Negative Negative [facility] Leukocyte Esterase Urine Negative Negative [facility] RBC Urine 3-5(A) 0 - 2 /HPF [facility] Urine WBC 0-5 0 - 5 /HPF [facility] Urine Squamous Epithelial Cell 6-10 0 - 2 /HPF [facility] Urine Bacteria Trace None Seen [facility] Hyaline Casts, Urine 0-2 0 - 2 /LPF [facility] Urine 01/11/2025 10:2 7 AM EST 01/11/2025 11:12 AM EST Narrative [facility] - 01/11/2025 11:26 AM EST Urine, Clean Catch us Mary Lou Guzman MD LAB URINE ORDERABLES Final Res ult Performing Organization Address [facility] Co de Phone Number [facility] [address] [place] [address] [phone] * Hemoglobin A1c (01/11/2025 10:27 AM EST) Hemoglobin A1c 5.5 <6.0 % [facility] Comment:Hemoglobin A1C Refer ence Range Adults: 4.8 - 6.0 % Non diabetic: < 6.0 % Goal: < 7.0 %Additional Action Suggested: > 8.0 %Note: Hemoglobin A1c results are invalid for patients with abnormal amounts of HbF. Blood transfusions may impact the HbA1c concentration in the patient sample. Estimated Average Glucose 111 mg/dL [facility] Comment:eAG = Estimated ave rage glucose which is %A1C expressed asaverage glucose, using the formula of the [id number] Glucose study (ADAG), Diabetes Care, Vol.31,#8,Jun. 2007 Blood Venous blood specimen / Unknown 01/11/2025 10:27 AM EST 01/11/2025 11:24 AM EST us Mary Lou Guzman MD LAB BLOOD ORDERABLES Final Res ult Performing Organization Address [facility] Co de Phone Number [facility] [address] [place] [phone] * (ABNORMAL) Comprehensive Metabolic Panel (01/11/2025 10:27 AM EST) Sodium 140 135 - 145 mmol/L [facility] Potassium 3.9 3.3 - 5.1 mmol/L [facility] Chloride 108 96 - 108 mmol/L [facility] Carbon Dioxide 25 22 - 29 mmol/L [facility] Anion Gap 11(L) 12 - 20 [facility] Urea Nitrogen (BUN) 10 9 - 16 mg/dL [facility] Creatinine, Serum 0.64 0.5 - 1.4 mg/dL [facility] Estimated Glomerular Filt Rate >60 [facility] Comment:Chronic Kidney Disea se: Estimated GFR < 60 mL/min/1.29x1Isrbce Kidney Disease: Estimated GFR < 15 mL/min/1.73m2 Glucose 91 60 - 115 mg/dL [facility] Calcium 8.8 8.4 - 10.2 mg/dL [facility] Bilirubin, Total 0.5 0.0 - 1.0 mg/dL [facility] Aspartate Amino Transferase 29 5 - 31 U/L [facility] Alanine Aminotransferase 39(H) 0 - 31 U/L [facility] Total Protein 8.1(H) 6.5 - 8.0 g/dL [facility] Albumin Level 4.3 3.5 - 5.0 g/dL [facility] Alkaline Phosphatase 64 39 - 117 U/L [facility] Blood Venous blood specimen / Unknown 01/11/2025 10:27 AM EST 01/11/2025 11:24 AM EST us Mary Lou Guzman MD LAB BLOOD ORDERABLES Final Res ult [facility] [address] [place] [phone] * (ABNORMAL) CBC auto differential (01/11/2025 10:27 AM EST) White Blood Count 8.1 4.8 - 10.8 X10*3/uL [facility] Red Blood Count 4.55 4.20 - 5.50 X10*6/uL [facility] Hemoglobin 13.0 12.0 - 16.0 g/dl [facility] Hematocrit 40.1 37.0 - 47.0 % [facility] Mean Corpuscular Volume 88.1 80.0 - 98.0 fL [facility] Mean Corpuscular Hemoglobin 28.6 27.0 - 33.0 pg [facility] Mean Corpuscular HGB Conc 32.4 31.0 - 35.0 g/dl [facility] Red Cell Distribution Width 14.1 11.0 - 16.0 % [facility] Platelet Count 424(H) 160 - 400 X10*3/uL [facility] Mean Platelet Volume 10.2 9.4 - 12.3 fL [facility] Neutrophils Percent Auto 62.2 45 - 73 % [facility] Imm Gran Pct Auto 0.4 0.0 - 0.4 % [facility] Lymphocytes Percent Auto 28.8 20 - 40 % [facility] Monocytes Percent Auto 6.3 2 - 11 % [facility] Eosinophils Percent Auto 1.7 0 - 4 % [facility] Basophils Percent Auto 0.6 0 - 2 % [facility] NRBC Pct Auto 0.0 0.0 - 0.2 /100WBC [facility] Neutrophils Absolute Auto 5.0 2.0 - 8.3 x10*3/uL [facility] Imm Gran Abs Auto 0.03 0.00 - 0.03 X10*3/uL [facility] Lymphocytes Absolute Auto 2.3 1.2 - 4.9 X10*3/uL [facility] Monocytes Absolute Auto 0.5 0.1 - 1.2 X10*3/uL [facility] Eosinophils Absolute Auto 0.1 0.0 - 0.4 X10*3/uL [facility] Basophils Absolute Auto 0.1 0.0 - 0.2 X10*3/uL [facility] NRBC Abs Auto 0.000 0.0 - 0.012 X10*3/uL [facility] Blood Venous blood specimen / Unknown 01/11/2025 10:27 AM EST 01/11/2025 11:24 AM EST us Mary Lou Guzman MD LAB BLOOD ORDERABLES Final Res ult [facility] [address] [place] [phone] * TSH W/Reflex to FT4 (01/11/2025 10:27 AM EST) TSH reflex Free T4 1.18 0.32 - 4.0 uIU/mL [facility] Blood Venous blood specimen / Unknown 01/11/2025 10:27 AM EST 01/11/2025 11:24 AM EST us Mary Lou Guzman MD LAB BLOOD ORDERABLES Final Res ult [facility] [address] [place] [phone] documented in this encounter Visit Diagnoses Diagnosis Lower abdominal pain- Primary Abdominal pain, other specified site Encounter for immunization documented in this encounter Additional Health Concerns Assessment Noted Time PHQ-9 Depression Total Score: 0 01/12/20 9:20 AM EST documented as of this encounter Care Teams Contract Processor Relationship Specialty Start Date End Date Mary Lou Guzman MD [address] [place] [phone] PCP - General Family Medicine 01/11/25 documented as of this encounter
[2025-01-11 12:43] LABS: HIV AB/AG Nonreactive (Nonreactive); HIV Num 1 0.06 S/CO (0.00-0.99); ~HepC Num1 8.77 S/CO (0.00-0.79); ~Hepatitis C Antibody Reactive (Nonreactive)
[2025-01-11 17:53] LABS: Bacterial Vaginosis PCR NEGATIVE (Negative); Candida Group PCR DETECTED (Not Detect); Candida glab krusei PCR NOT DETECTED (Not Detect); Trichomonas vaginalis PCR NOT DETECTED (Not Detect)
[2025-01-15 14:48] LABS: HCV Log PCR <1.18 NOT DETECTED Log IU/mL (NOT DETECTED); HepC Viral Load <15 NOT DETECTED IU/mL (NOT DETECTED)
== END 2025-01-11 10:24 | disposition home or self-care (01) ==
LOC: HO.HHCL 10:23
PROVIDERS: Visit Provider General Practice
DX: R10.30 Lower abdominal pain, unspecified (principal)
CPT/HCPCS: 36415; 80053; 81001; 81515; 83036; 84443; 85025; 86803; 87389; 87522

== ENCOUNTER 2025-02-22 10:59 | Outpatient (REF) | payer MEDICAID, OTHER, SELFPAY ==
--- OUTSIDE RECORDS SUMMARY | 2025-02-22 13:26 | XMS_ITS | Clinical Summary ---
Author Organization [employer] Address [address] [facility] [address] [place] [address] Care Team Providers Care Chart Reader Name Role Phone Mary Lou Guzman MD Primary Care Provider [phone] Allergies No known active allergies Medications * This document contains information received from the source organization and may not represent a complete record from that organization. Blood Pressure Monitoring (Omron 3 Series BP Monitor) device USE TO CHECK BLOOD PRESSURE TWICE DAILY 3 Active hydrOXYzine pamoate (Vistaril) 25 MG capsule Take 1 capsule (25 mg) by mouth if needed at bedtime for anxiety. 30 capsule 11 4 Active omeprazole (PriLOSEC) [address] capsuleIndicatio ns:Gastroesophag eal reflux disease, unspecified whether esophagitis present TAKE 1 CAPSULE BY MOUTH EVERY DAY BEFORE BREAKFAST. DO NOT BREAK, CRUSH, DISSOLVE OR CHEW. 4 Active fluconazole (Diflucan) 150 MG tabletIndication s:Lindsey albicans infection Take 1 tablet (150 mg) by mouth 1 (one) time per week for 14 days. 2 tablet 5 01/29/20 25 Active Problems Problem Noted Date Diagnosed Date [...] of and family issues. Patient's grandmother in [place] last month. Kathya wasn't able to travel [...] of and relationship issues. Kathya presented to [facility] with medical concerns and anxiety presentation of sxs. She reported her grandmother a week ago in [place]. Kathya wasn't able to travel and do [...] clinician due to lack of coverage for MH services. Bereavement 07/19/2024 Assessment & Plan (08/09/2024 2:51 PM EDT): During IBH Consult Kathya presenting with depressed mood, hopelessness, irritable mood, loss of interests/pleasure , sense of isolation/loneliness , isolating, fatigue/loss of energy; for a period of 0-6 mo, for most or all symptoms in the context of and family issues. Patient's grandmother in [place] last month. Kathya wasn't able to travel [...] of and relationship issues. Kathya presented to [facility] with medical concerns and anxiety presentation of sxs. She reported her grandmother a week ago in [place]. Kathya wasn't able to travel and do [...] clinician due to lack of coverage for MH services. 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 Date Type Department Care Team Description 01/14/2025 Telephone [facility] [address] [place], [place] [phone] Mary Lou Guzman MD Results 01/11/2025 9:45 AM EST Office Visit [address] [phone] Mary Lou Guzman MD Lower abdominal pain (Primary Dx); Encounter for immunization; Dietary counseling; Exercise counseling; Class 1 obesity without serious comorbidity with body mass index (BMI) of 34.0 to 34.9 in adult, unspecified obesity type; Lindsey albicans infection; Gastroesophageal reflux disease, unspecified whether esophagitis present 01/11/2025 Orders Only [facility] [address] [place] [phone] Mary Lou Guzman MD 01/11/2025 Travel 01/03/2025 9:00 AM EST Office Visit [facility] AD[facility] D[facility] [address] [place] [phone] Kaylen Ortega Dental calculus (Primary Dx); Dental plaque; Subgingival dental calculus 12/30/2024 Patient Outreach [facility] [address] [place] [phone] Mary Lou Guzman MD Care Coordination (CHW outreach for SDSC housing search-referral completed ) 12/30/2024 Patient Outreach [facility] [address] [place], [place] [phone] Mary Lou Guzman MD Pre-visit Planning (SDOH [...] 01/11/2025 9:18 AM EST Plan of Treatment Upcoming Encounters Date Type Department Care Team (Late st Contact Info) Description 08/10/2025 10:00 AM EDT Office Visit [facility] [address] [place] [address] Kaylen Ortega Health Maintenance Due Date Last Done Comments Lipid Panel 1980 DTaP/Tdap/Td Vaccines (1 - Tdap) 2000 Hepatitis A Vaccines (1 of 2 - Risk 2-dose series) 2000 Hepatitis B Vaccines (1 of 3 - 19+ 3-dose series) 2000 Dental X-Ray: Bitewings 05/25/2025 05/24/2024 Dental Oral Exam 07/04/2025 01/03/2025, 05/24/2024 Dental Prophylaxis 07/04/2025 01/03/2025, 06/22/2024 Alcohol/Substance Use Screening 01/11/2026 01/11/2025 Depression Screening 01/11/2026 01/11/2025, 01/11/2025 SDOH Screening 01/11/2026 01/11/2025 Family Planning (PISQ) 01/14/2026 01/14/2025 Tobacco Screening 01/14/2026 01/14/2025 Mammogram 02/16/2026 02/17/2024 Pap Smear 01/25/2027 01/26/2024 Dental X-Ray: Full Mouth 05/25/2027 05/24/2024 Cervical Cancer Screening 01/25/2029 HPV/Cotest 01/25/2029 01/26/2024 Zoster Vaccines (1 of 2) 2031 RSV Patients and Patients Aged 60 years or older (1 - 1-dose 75+ series) 2056 COVID-19 Vaccine Completed 01/11/2025 HIV Screening Completed 01/11/2025 Hepatitis C Screening Completed 01/11/2025 , 01/11/2025 Influenza Vaccine Completed 01/11/2025 HIB Vaccines [...] Procedure Name Priority Date/Time Associated Diagnosis Comments HEPATITIS C VIRAL RNA, QUANTITATIVE, REAL-TIME PCR Routine 01/11/2025 10:27 AM EST HEPATITIS C AB W/REFL TO HCV RNA, QN, PCR Routine 01/11/2025 10:27 AM EST Lower abdominal pain HIV 1/2 ANTIGEN/ANTIBODY, FOURTH GENERATION W/RFL Routine 01/11/2025 10:27 AM EST Lower abdominal pain URINALYSIS, COMPLETE, WITH REFLEX TO CULTURE Routine 01/11/2025 10:27 AM EST Lower abdominal pain HEMOGLOBIN A1C Routine 01/11/2025 10:27 AM EST Lower abdominal pain COMPREHENSIVE METABOLIC PANEL Routine 01/11/2025 10:27 AM EST Lower abdominal pain CBC WITH AUTO DIFFERENTIAL Routine 01/11/2025 10:27 AM EST Lower abdominal pain TSH W/REFLEX TO FT4 Routine 01/11/2025 1 0:27 AM EST Lower abdominal pain BACTERIAL VAGINOSIS PANEL Routine 01/11/2025 10:13 AM EST Lower abdominal pain ORAL HYGIENE [...] (01/11/2025 10:27 AM EST) Color Urine Yellow [facility] Appearance Urine Turbid [facility] PH 6.0 5.0 - 9.0 [facility] Glucose Urine UA Negative Negative mg/dL [facility] Urine Blood Small (1+)(A) Negative [facility] Specific [place] - Urine >=1.030(H) 1.005 - 1.025 [facility] Urine Protein Negative Neg-Trace mg/dL [facility] Urine Ketones Trace Negative mg/dL [facility] Nitrite Urine Negative Negative [facility] Leukocyte Esterase Urine Negative Negative [facility] RBC Urine 3-5(A) 0 - 2 /HPF [facility] Urine WBC 0-5 0 - 5 /HPF [facility] Urine Squamous Epithelial Cell 6-10 0 - 2 /HPF [facility] Urine Bacteria Trace None Seen [facility] Hyaline Casts, Urine 0-2 0 - 2 /LPF [facility] Urine 01/11/2025 10:2 7 AM EST 01/11/2025 11:12 AM EST Narrative [facility] - 01/11/2025 11:26 AM EST Urine, Clean Catch Mary Lou Guzman MD LAB URINE ORDERABLES Final Res ult Performing Organization Address City/[facility]/ZIP Co de Phone Number [facility] [address] [place] [phone] * TSH W/Reflex to FT4 (01/11/2025 10:27 AM EST) TSH reflex Free T4 1.18 0.32 - 4.0 uIU/mL [facility] Blood Venous blood specimen / Unknown 01/11/2025 10:27 AM EST 01/11/2025 11:24 AM EST Mary Lou Guzman MD LAB BLOOD ORDERABLES Final Res ult Performing Organization Address City/[facility]/ZIP Co de Phone Number [facility] [address] [place] [phone] * Hepatitis C Viral RNA, Quantitative, Real-Time PCR (01/11/2025 10:27 AM EST) Hepatitis C Viral Load <15 NOT DETECTED NOT DETECTED IU/mL [facility] HCV Log PCR <1.18 NOT DETECTED NOT DETECTED Log IU/mL [facility] Comment:For additional infor mation, please refer tohttp://education.[employer]fit - Fitness for the rest of us/faq/CIE20i3(This link is being provided for informational/educational purposes only.)THIS TEST WAS PERFORMED AT:[facility] [place] [phone] OMER MD 01/11/2025 10:2 7 AM EST 01/13/2025 11:35 AM EST us Mary Lou Guzman MD LAB BLOOD ORDERABLES Final Res ult [facility] [address] [place] [phone] * (ABNORMAL) CBC auto differential (01/11/2025 10:27 AM EST) White Blood Count 8.1 4.8 - 10.8 X10*3/uL [facility] Red Blood Count 4.55 4.20 - 5.50 X10*6/uL [facility] Hemoglobin 13.0 12.0 - 16.0 g/dl [facility] Hematocrit 40.1 37.0 - 47.0 % [facility] Mean Corpuscular Volume 88.1 80.0 - 98.0 fL [facility] Mean Corpuscular Hemoglobin 28.6 27.0 - 33.0 pg [facility] Mean Corpuscular HGB Conc 32.4 31.0 - 35.0 g/dl [facility] Red Cell Distribution Width 14.1 11.0 - 16.0 % [facility] Platelet Count 424(H) 160 - 400 X10*3/uL [facility] Mean Platelet Volume 10.2 9.4 - 12.3 fL [facility] Neutrophils Percent Auto 62.2 45 - 73 % [facility] Imm Gran Pct Auto 0.4 0.0 - 0.4 % [facility] Lymphocytes Percent Auto 28.8 20 - 40 % [facility] Monocytes Percent Auto 6.3 2 - 11 % [facility] Eosinophils Percent Auto 1.7 0 - 4 % [facility] Basophils Percent Auto 0.6 0 - 2 % [facility] NRBC Pct Auto 0.0 0.0 - 0.2 /100WBC [facility] Neutrophils Absolute Auto 5.0 2.0 - 8.3 x10*3/uL [facility] Imm Gran Abs Auto 0.03 0.00 - 0.03 X10*3/uL [facility] Lymphocytes Absolute Auto 2.3 1.2 - 4.9 X10*3/uL [facility] Monocytes Absolute Auto 0.5 0.1 - 1.2 X10*3/uL [facility] Eosinophils Absolute Auto 0.1 0.0 - 0.4 X10*3/uL [facility] Basophils Absolute Auto 0.1 0.0 - 0.2 X10*3/uL [facility] NRBC Abs Auto 0.000 0.0 - 0.012 X10*3/uL [facility] Blood Venous blood specimen / Unknown 01/11/2025 10:27 AM EST 01/11/2025 11:24 AM EST Mary Lou Guzman MD LAB BLOOD ORDERABLES Final Res ult Performing Organization Address [facility]/ZIP Co de Phone Number [facility] [address] [place] [phone] * (ABNORMAL) Hepatitis C Antibody with Reflex to HCV, RNA, Quantitative, Real- Time PCR (01/11/2025 10:27 AM EST) Hepatitis C Antibody Reactive( A) Nonreactive [facility] Comment:Presumptive evidence of antibodies to HCV. Blood Venous blood specimen / Unknown 01/11/2025 10:27 AM EST 01/11/2025 11:24 AM EST Mary Lou Guzman MD LAB BLOOD ORDERABLES Final Res ult Performing Organization Address [facility]/ZIP Co de Phone Number [facility] [address] [place] [phone] * HIV-1/2 Antigen and Antibodies, Fourth Generation, with Reflexes (01/11/2025 10:27 AM EST) HIV AB/AG Nonreactive Nonreactive [facility] Comment:HIV-1 p24 Ag and/or HIV-1/HIV-2 Ab not detected.A test result that is nonreactive does not exclude thepossibility of exposure to or infection with HIV-1 and/orHIV-2. Nonreactive results in this assay for individualswith prior exposure to HIV-1 and/or HIV-2 may be due toantigen and antibody levels that are below the limit ofdetection of this assay.The [employer] HIV Ag/Ab Combo assay result andsupplemental assay results should be interpreted inconjunction with the patient's clinical presentation,history and other laboratory results. If the results areinconsistent with clinical evidence, additional testing issuggested to confirm the result. Blood Venous blood specimen / Unknown 01/11/2025 10:27 AM EST 01/11/2025 11:24 AM EST us Mary Lou Guzman MD LAB BLOOD ORDERABLES Final Res ult [facility] [address] [place] [phone] * Hemoglobin A1c (01/11/2025 10:27 AM EST) Hemoglobin A1c 5.5 <6.0 % [facility] Comment:Hemoglobin A1C Refer ence Range Adults: 4.8 - 6.0 % Non diabetic: < 6.0 % Goal: < 7.0 %Additional Action Suggested: > 8.0 %Note: Hemoglobin A1c results are invalid for patients with abnormal amounts of HbF. Blood transfusions may impact the HbA1c concentration in the patient sample. Estimated Average Glucose 111 mg/dL [facility] Comment:eAG = Estimated ave rage glucose which is %A1C expressed asaverage glucose, using the formula of the P8M-WjlrygiKkahlnx Glucose study (ADAG), Diabetes Care, Vol.31,#8,Jun. 2007 Blood Venous blood specimen / Unknown 01/11/2025 10:27 AM EST 01/11/2025 11:24 AM EST us Mary Lou Guzman MD LAB BLOOD ORDERABLES Final Res ult Performing Organization Address City/[facility]/ZIP Co de Phone Number [facility] [address] [place] [address] [phone] * (ABNORMAL) Comprehensive Metabolic Panel (01/11/2025 10:27 AM EST) Sodium 140 135 - 145 mmol/L [facility] Potassium 3.9 3.3 - 5.1 mmol/L [facility] Chloride 108 96 - 108 mmol/L [facility] Carbon Dioxide 25 22 - 29 mmol/L [facility] Anion Gap 11(L) 12 - 20 [facility] Urea Nitrogen (BUN) 10 9 - 16 mg/dL [facility] Creatinine, Serum 0.64 0.5 - 1.4 mg/dL [facility] Estimated Glomerular Filt Rate >60 [facility] Comment:Chronic Kidney Disea se: Estimated GFR < 60 mL/min/1.72e5Kzdxjp Kidney Disease: Estimated GFR < 15 mL/min/1.73m2 Glucose 91 60 - 115 mg/dL [facility] Calcium 8.8 8.4 - 10.2 mg/dL [facility] Bilirubin, Total 0.5 0.0 - 1.0 mg/dL [facility] Aspartate Amino Transferase 29 5 - 31 U/L [facility] Alanine Aminotransferase 39(H) 0 - 31 U/L [facility] Total Protein 8.1(H) 6.5 - 8.0 g/dL [facility] Albumin Level 4.3 3.5 - 5.0 g/dL [facility] Alkaline Phosphatase 64 39 - 117 U/L [facility] Blood Venous blood specimen / Unknown 01/11/2025 10:27 AM EST 01/11/2025 11:24 AM EST us Mary Lou Guzman MD LAB BLOOD ORDERABLES Final Res ult [facility] [address] [place] [phone] * (ABNORMAL) Bacterial Vaginosis Panel (01/11/2025 10:13 AM EST) TRICHOMONAS VAGINALIS DETECTION BY PCR NOT DETECTED Not Detect [facility] BACTERIAL VAGINOSIS DETECTION BY PCR NEGATIVE Negative [facility] Comment:The BV organism targ ets of the Xpert Xpress MVP test can becommensal in women; Xpert Xpress MVP positive results forbacterial vaginosis should be considered in conjunction withother clinical and patient information to determine thedisease status. Organisms that are not detected by the XpertXpress MVP test have also been reported to be associatedwith BV and aerobic vaginitis.The Xpert Xpress MVP test performance has not been evaluatedin patients under the age of 14. LINDSEY GROUP DETECTION BY PCR DETECTED(A) Not Detect [facility] Lindsey glab krusei PCR NOT DETECTED Not Detect [facility] Swab Vaginal structure / Unknown 01/11/2025 10:13 AM EST 01/11/2025 2:03 PM EST Mary Lou Guzman MD LAB MICROBIOLOGY - GENERAL ORD ERABLES Final Result Performing Organization Address City/State/[facility] Co de Phone Number [facility] [address] [place] [phone] * BI Mammogram Screening Tomosynthesis Bilateral (02/17/2024 11:35 AM EDT) Anatomical Region Laterality Modality Breast Bilateral Mammography 02/17/2024 11:3 5 AM EDT Narrative 02/23/2024 5:34 AM EDT ? [facility] ? [address] ?[place] [address] ? Mammography Report ? Signed ? Patient: Wilton Jo,Kathya ?MR#: [id number] ?? [id number] ? : 1980 ?Acct:[id number] ? Age/Sex: 43 / F ?ADM Date: 02/16/24 ? Loc: HO.MAMMO ? Attending Dr: Catherine Mcadams OIL REFINERY PROCESS TECHNICIAN ? Ordering Physician: CATHERINE MCADAMS OIL REFINERY PROCESS TECHNICIAN ?Results: 1Negati ?? ve ? Date of Service: 02/17/24 ?Follow Up: 1 Year From Orig ?? inal Mammogram ? Procedure(s): MM tomosynthesis screening BI ?? Accession Number(s): [id number] ? cc: CATHERINE MCADAMS OIL REFINERY PROCESS TECHNICIAN; GASPER PHILLIPS CNM ? EXAMINATION: ?? MM [...] by Silvia Barnett MD in OV> ? 02/23/24529 ? DD/ 1135 ? TD/TT: ? Enterprise Resource Planning Consultant: ? Procedure Note Donpaoloter, Image - 02/23/2024 [facility] [address] [place] [address] Mammography Report Signed Patient: Moreno Hair#: [id number] : 1980Acct:[id number] Age/Sex: 43 / FADM Date: 02/17/24 Loc: HO.MAMMO Attending Dr: Catherine Mcadams NP Ordering Physician: CATHERINE MCADAMS NPResults: 1Negati ve Date of Service: 02/17/24Follow Up: 1 Year From Orig inal Mammogram Procedure(s): MM tomosynthesis screening BI Accession Number(s): [id number] cc: CATHERINE MCADAMS NP; GASPER PHILLIPS CNM EXAMINATION: MM SCREENING DIGITAL [...] in OV> 02/23/24 0530 DD/ 1135 TD/TT: Enterprise Resource Planning Consultant: Catherine PARR IMG BI PROCEDURES Final Result * HPV mRNA E6/E7 w/Reflex to HPV Genotypes 16, 18/45 (01/26/2024 2:03 PM EDT) HPV nRNA E6/E7 Not Detected Not Detected [facility] Comment:Methodology: Transcr iption-Mediated AmplificationThis assay detects E6/E7 viral messenger RNA (mRNA) from 14high-risk HPV types (16,18,31,33,35,39,45,51,52,56,58,59,66,68).Cervical sources are required for HPV testing.If a vaginal source from a patient who has had atotal hysterectomy with removal of cervix wassubmitted, please contact the testing laboratoryfor alternative testing options.For additional information, please refer tohttp://education.8fit - Fitness for the rest of us/faq/GBE955t6(This link if provided for information/educational purposes only.)THIS TEST WAS PERFORMED AT:[facility] [place] [phone] OMER MD HPV mRNA E6/E7 [facility] HPV 16 RNA [facility] HPV 18/45 RNA [facility] 01/26/2024 2:03 PM EDT 01/27/2024 10:20 AM EDT Catherine PARR LAB CYTOLOGY ORDERABLES Final Result [facility] [address] [place] [address] [phone] * Pap Smear (01/26/2024 2:03 PM EDT) 01/26/2024 2:03 PM EDT 01/27/2024 10:20 AM EDT Narrative [facility] - 02/06/2024 6:54 AM EDT ----- ------- Name: Kathya Hair ? Age/Sex: 43/F ? : 1980 Unit#: [id number] ?? Attend Dr: CATHERINE MCADAMS NP ?Re01/26/24 ?Status: DEP REF ? Location: HO.LNP ?Disch: ? ----- ------- SPEC : [id number] ? RECD: 01/27/24-0 ? STATUS: ??SOUT ? REQ NUM: [id number] ? ROYA: 01/26/24-1403 ? SUBM DR: CATHERINE MCADAMS NP ? ENTERED: ??01/27/24-1221 ?SP TYPE: Pap Smr ?OTHR : ? ORDERED: ??Pap Smear ? Interpretation ?? Satisfactory for evaluation. ?? Negative for intraepithelial lesion or malignancy. ?HPV mRNA E6/E7: ?NOT DETECTED ? This assay detects E6/E7 viral messenger RNA (mRNA) from 14 high-risk HPV types (16, 18, ?? 31, 33, 35, 39, 45, 51, 52, 56, 58, 59, 66, 68) ?? HPV testing performed by [facility], [place], [place]. ??See reference laboratory ?? portion of the EMR for entire report. ?Clinical Information LMP: 01/20/2024 Previous PAP test: Unknown date, WNL Other history: No known hx of HPV or ASCUS, lower abdominal pain ? Material Received ?? ThinPrep-Vaginal/Cervical ----- ------- Signed (signature on file) ARUN Meeks (ASCP) 02/06/24 0654 ? ----- ------- ? END OF REPORT ? Catherine Mcadams STITCH WHEELER LAB CYTOLOGY ORDERABLES Final Result [facility] [address] [place] [phone] from Last 3 Months or Most Recently Relevant to Health Maintenance Insurance [email or web address] LIMITED HSN FULL DENTAL - HSN FULL (MEDICAID) DENTAL-[facility] MEDICAID LIMITED ADULT Care Teams Chart Reader Relationship Specialty Start Date End Date Mary Lou Guzman MD [address] [place] [address] PCP - General Family Medicine 01/11/25
== END 2025-02-22 11:00 | disposition home or self-care (01) ==
LOC: HO.MAMMO 10:59
PROVIDERS: PCP General Practice; Visit Provider Advanced Practice Midwife
DX: Z12.31 Encounter for screening mammogram for malignant neoplasm of breast (principal)
CPT/HCPCS: 77063; 77067

== ENCOUNTER → 2025-02-22 11:30 | Outpatient (BNV) | payer MEDICAID, SELFPAY | PROVIDERS: PCP General Practice; Visit Provider Internal Medicine | DX: Z12.31 Encounter for screening mammogram for malignant neoplasm of breast (principal) | CPT/HCPCS: 77063; 77067 ==

== ENCOUNTER 2025-02-28 08:18 | Emergency (ER) | payer MEDICAID, OTHER, SELFPAY ==
--- NOTE | ~2025-02-28 | XR_ITS ---
CLINICAL HISTORY: CP 2 view chest x-ray. Comparison: None Findings: Normal lung volumes. Lungs are clear. No pneumothorax or pleural effusion. Heart size normal. No passive venous congestion. No midline shift or tracheal deviation. No acute fracture. Impression: 1. No acute cardiopulmonary disease. This document has been electronically signed by: Chip Santizo MD on 02/28/2025 12:36:19
[2025-02-28 08:21] VITALS: BP 143/86; PULSE 119; RESP 16; TEMP 36.7; O2SAT 98; BMI 31.9
--- NOTE | 2025-02-28 08:25 | ECG_ITS ---
Test Reason : chest pain Blood Pressure : */* mmHG Vent. Rate : 109 BPM Atrial Rate : 109 BPM P-R Int : 126 ms QRS Dur : 84 ms QT Int : 350 ms P-R-T Axes : 30 15 4 degrees QTcB Int : 471 ms Sinus tachycardia Otherwise normal ECG No previous ECGs available Referred By: Generic ED Physician Electronically Signed By: PRASHANT SIGALA
[2025-02-28 08:43] LABS: MANUAL DIFF FLAG NO
[2025-02-28 08:44] LABS: Basophils Absolute Auto 0.1 X10*3/uL (0.0-0.2); Basophils Percent Auto 0.9 % (0-2); Eosinophils Absolute Auto 0.2 X10*3/uL (0.0-0.4); Eosinophils Percent Auto 2.6 % (0-4); Hematocrit 40.3 % (37.0-47.0); Hemoglobin 13.5 g/dl (12.0-16.0); Imm Gran Abs Auto 0.02 X10*3/uL (0.00-0.03); Imm Gran Pct Auto 0.3 % (0.0-0.4); Lymphocytes Absolute Auto 1.8 X10*3/uL (1.2-4.9); Lymphocytes Percent Auto 26.7 % (20-40); Mean Corpuscular HGB Conc 33.5 g/dl (31.0-35.0); Mean Corpuscular Hemoglobin 29.2 pg (27.0-33.0); Mean Corpuscular Volume 87.2 fL (80.0-98.0); Mean Platelet Volume 9.7 fL (9.4-12.3); Monocytes Absolute Auto 0.4 X10*3/uL (0.1-1.2); Monocytes Percent Auto 6.3 % (2-11); Neutrophils Absolute Auto 4.4 x10*3/uL (2.0-8.3); Neutrophils Percent Auto 63.2 % (45-73); Platelet Count 393 X10*3/uL (160-400); Red Blood Count 4.62 X10*6/uL (4.20-5.50); Red Cell Distribution Width 14.2 % (11.0-16.0); White Blood Count 6.9 X10*3/uL (4.8-10.8)
[2025-02-28 08:46] LABS: Appearance Urine Clear; Color Urine Yellow; Glucose Urine UA Negative (Negative); Leukocyte Esterase Urine Negative (Negative); Nitrite Urine Negative (Negative); Specific Gravity - Urine <= 1.005 (1.005-1.025); UMIC TRIGGER UACC YES; Urine Blood Trace (Negative); Urine Ketones Negative (Negative); Urine Protein Negative (Neg-Trace)
[2025-02-28 08:53] LABS: Bacteria Urine None Seen (None Seen); Hyaline Casts Urine 0-2 /LPF (0-2); RBC Urine 0-2 /HPF (0-2); Squamous Epithelial Cell Urine 0-2 /HPF (0-2); WBC Urine 0-5 /HPF (0-5)
[2025-02-28 08:54] LABS: UPreg QC Valid YES; Urine Pregnancy NEGATIVE (NEGATIVE)
--- NOTE | 2025-02-28 09:03 | ED_ITS ---
HPI - General Adult General Chief complaint: General Medical Stated complaint: abd pain and headache Time Seen by Provider: 02/28/25 09:02 Source: patient, RN notes reviewed and grid trimmer Mode of arrival: ambulatory Limitations: language barrier History of Present Illness ED Provider: Maya Romero PA-C [facility] narrative: This is a 44-year-old Serbian-speaking female, with no known medical problems, who presents emergency department with multiple complaints. Patient states that she checked into the emergency department today as she awoke up last night with headache, belly pain, and back pain. Patient reports that she was resting when this happened. Patient also reports that she has had intermittent chest pain for the last 3 days. Patient reports that chest pain is sharp in nature, unprovoked, and lasts for several seconds. She also endorses some shortness of breath. Denies any palpitations. She also reports that she has had some burning with urination, urinary frequency, urgency. She denies any abnormal vaginal discharge or bleeding. Denies any sick contacts. She only takes ibuprofen for occasional aches and pains. She has a history of hepatitis b, that was monitored in [facility], she did receive treatment for it. Denies smoking history, denies alcohol or drug use. She endorses nausea, no vomiting, diarrhea or constipation. No other complaints or concerns at this time. MD complaint: Multiple complaints Onset (ago): day(s) Quality: aching Pain Consistency: constant Relieving factors: none Exacerbating factors: none Associated symptoms: denies other symptoms Treatments prior to arrival: none Related Data Home Medications ?Medication ?Instructions ?Recorded ?Confirmed No Known Home Meds 02/28/25 02/28/25 Allergies Allergy/AdvReac Type Severity Reaction Status Date / Time No Known Allergies Allergy Verified 02/28/25 08:24 Review of Systems 2 Review of Systems: Yes all other systems are reviewed and are negative Constitutional: Constitutional: Reports as per [facility] Social History Social History Smoked in Last 30 Days: No Use of substances other than those prescribed or required for medical reasons: No Advance Directives: No Advance Directives Information Provided: Yes Patient : No Physical Exam ED Vital Signs: Vital Signs - 24 hr 02/28/25 08:21 02/28/25 09:25 02/28/25 10:00 Temperature 98.1 F Pulse Rate 119 H 91 79 Respiratory Rate 16 12 15 Blood Pressure 143/86 H 130/81 127/78 Pulse Oximetry 98 99 Oxygen Delivery Method Room Air Room Air BMI result Body Mass Index 31.9 Const General: cooperative, comfortable and no acute distress Orientation/consciousness: patient oriented x3 Limitations: no limitations HENMT Head: Yes normal to inspection, Yes normocephalic and Yes atraumatic Ears: hearing grossly normal bilaterally General nose exam: Normal external nose present Face and sinus: Yes normal facial exam Mouth: Normal oral and palatal mucosa present, oropharynx normal and moist mucous membranes Throat: Yes posterior oropharynx normal Eyes General: appearance normal, both eyes and all related structures Eyelids: Yes eyelids normal Conjunctivae: conjunctivae normal Sclerae: sclerae normal Pupils: Equal, round and reactive pupils present EOM: EOMs intact bilaterally Neck Neck: Yes normal visual inspection, Yes full ROM and Yes no lymphadenopathy Lymphatic: no lymphadenopathy noted Chest Chest palpation & inspection: normal inspection of the chest Resp Effort & Inspection: normal respiratory effort and able to speak in complete sentences Auscultation: clear to auscultation bilaterally, no crackles, no rales, no rhonchi and no wheezes Cardio Rate: regular rate Rhythm: regular rhythm Heart sounds: S1 normal heart sound present and S2 normal heart sound present GI Other: Right upper quadrant surgical healed scar noted. Patient with very mild epigastric tenderness to palpation. No rebound or guarding. Inspection: Yes normal to inspection Skin General skin exam: no rashes or lesions noted Trauma: no lacerations or abrasions Wounds: no wounds Neuro General: patient oriented x3 and moves all extremities Cranial nerves: Yes Equal, round and reactive pupils present Extrem General: Yes normal to inspection Right upper extremity: normal to inspection Left upper extremity: normal to inspection Right lower extremity: normal to inspection Left lower extremity: normal to inspection Course Reevaluation(s) Reevaluation #1: D-dimer negative. Chest x-ray still pending Time: 11:51 Reevaluation #2: X-rays negative. Patient's blood work is reassuring. Vital signs within normal limits. EKG with no acute findings. Patient was medicated with a GI cocktail, patient states that her symptoms have fully resolved, and she was feeling much better. She has no chest pain, belly pain, or back pain. She states that she was feeling better, and is eager for discharge. Vitals remained stable. Her overall all workup today was reassuring. Patient was given [facility] referral for primary care. Patient stable for discharge. Time: 12:43 Medications Administered Discontinued Medications Generic Name Dose Route Start Last Admin Trade Name Lary PRN Reason Stop Dose Admin Al Hydroxide/Mg Hydroxide 30 ml 02/28/25 10:18 02/28/25 10:26 Magnesium Hydrox/Alum Hydrox 30 Ml Oral.Susp PO 02/28/25 10:19 30 ml ONCE ONE Administration Sodium Chloride 1,000 mls @ 999 mls/hr 02/28/25 09:42 02/28/25 11:30 Ns IV 02/28/25 10:42 Infused .Q1H1M ONE Infusion Lidocaine HCl 15 ml 02/28/25 10:18 02/28/25 10:26 Lidocaine Hcl Viscous 2 % 15 Ml Solution MUCOUS MEM 02/28/25 10:19 15 ml ONCE ONE Administration Medical Decision Making Medical Decision Making [facility] Narrative: This is a 44-year-old Serbian-speaking female, with a history of hepatitis-B, who presents emergency department for evaluation of headache, chest pain, shortness for breath, back pain. Patient is well-appearing, vital signs within normal limits, she is speaking in full sentences under no acute distress. She has had multiple complaints, does mention some shortness of breath and chest pain. On arrival, patient tachycardic at 119bpm oxygen saturation 98% on room air. Lungs are clear to auscultation bilaterally. She is well-appearing under no acute distress. Labs were obtained prior to my evaluation, she has no leukocytosis, stable H&H, chemistry revealing no evidence of MAT. AST ALT slightly elevated at 32 and 43, lipase within normal limits. Troponin less than 2.7. No need for repeat as chest pain has been intermittent for the last 3 days. She has had no recent travel, surgery, hospitalizations. Differential diagnoses include acute viral illness, gastritis, gastroenteritis, UTI. Plan: Viral swabs, we will continue to closely monitor. Differential Diagnosis Differential Diagnoses: The differential diagnosis associated with the presentation includes See above Admission/Observation Consideration of admission/observation: Escalation of care including admission/observation considered Lab Data [facility] Lab Attestation statement: I reviewed the patient's lab results. No leukocytosis, stable H&H, chemistry feeling no evidence of MAT, slight elevation in AST and ALT. Troponin less than 2.7. Chest pain has been occurring for the last 3 days, no need for repeat. Urine does not appear to be infected. Negative flu, COVID, RSV. 02/28/25 08:37 02/28/25 08:37 Labs: Lab Results 02/28/25 02/28/25 02/28/25 Range/Units 08:37 09:15 09:50 WBC 6.9 (4.8-10.8) X10*3/uL RBC 4.62 (4.20-5.50) X10*6/uL Hgb 13.5 (12.0-16.0) g/dl Hct 40.3 (37.0-47.0) % MCV 87.2 (80.0-98.0) fL MCH 29.2 (27.0-33.0) pg MCHC 33.5 (31.0-35.0) g/dl RDW 14.2 (11.0-16.0) % Plt Count 393 (160-400) X10*3/uL MPV 9.7 (9.4-12.3) fL Immature Gran % (Auto) 0.3 (0.0-0.4) % Neut % (Auto) 63.2 (45-73) % Lymph % (Auto) 26.7 (20-40) % [place] % (Auto) 6.3 (2-11) % Eos % (Auto) 2.6 (0-4) % Baso % (Auto) 0.9 (0-2) % Lymph # (Auto) 1.8 (1.2-4.9) X10*3/uL [place] # (Auto) 0.4 (0.1-1.2) X10*3/uL Eos # (Auto) 0.2 (0.0-0.4) X10*3/uL Baso # (Auto) 0.1 (0.0-0.2) X10*3/uL Abs Immat Gran (auto) 0.02 (0.00-0.03) X10*3/uL Absolute Neuts (auto) 4.4 (2.0-8.3) x10*3/uL Absolute Nucleated RBC 0.000 (0.0-0.012) X10*3/uL Nucleated RBC % (auto) 0.0 (0.0-0.2) /100WBC D-Dimer High Sensitivty < 150 NG/ML Sodium 138 (135-145) mmol/L Potassium 3.7 (3.3-5.1) mmol/L Chloride 109 H (96-108) mmol/L Carbon Dioxide 20 L (22-29) mmol/L Anion Gap 13 (12-20) BUN 9 (9-16) mg/dL Creatinine 0.74 (0.5-1.4) mg/dL Estim Creat Clear Calc 103.0 Estimated GFR > 60 Random Glucose 111 (60-115) mg/dL Calcium 9.2 (8.4-10.2) mg/dL Total Bilirubin 0.5 (0.0-1.0) mg/dL AST 32 H (5-31) U/L ALT 43 H (0-31) U/L Alkaline Phosphatase 64 (39-117) U/L Troponin I High Sens < 2.7 (<3.5-17.0) ng/L Total Protein 8.0 (6.5-8.0) g/dL Albumin 4.4 (3.5-5.0) g/dL Lipase 17 (8-78) U/L Urine Color Yellow Urine Appearance Clear Urine pH 6.0 (5.0-9.0) Ur Specific [place] <= 1.005 (1.005-1.025) Urine Protein Negative (Neg-Trace) mg/dL Urine Glucose (UA) Negative (Negative) mg/dL Urine Ketones Negative (Negative) mg/dL Urine Blood Trace H (Negative) Urine Nitrite Negative (Negative) Ur Leukocyte Esterase Negative (Negative) Urine RBC 0-2 (0-2) /HPF Urine WBC 0-5 (0-5) /HPF Ur Squamous Epith Cells 0-2 (0-2) /HPF Urine Bacteria None Seen (None Seen) Hyaline Casts 0-2 (0-2) /LPF Urine Test NEGATIVE (NEGATIVE) Influenza Type A (PCR) NEGATIVE (Negative) Influenza Type B (PCR) NEGATIVE (Negative) RSV RNA Qual (PCR) NEGATIVE (Negative) SARS-CoV-2 RNA (RT-PCR) NEGATIVE (Negative) Independent Interpretation I performed an independent interpretation of an: EKG Interpretation: Sinus tachycardic at 109bpm, IN interval 126, QT QTC 350/471, no ST elevation or depression. Radiology Impression Discussion of test interpretation with radiology: I have reviewed the radiologist's reading. Radiologist Impression: CLINICAL HISTORY: CP 2 view chest x-ray. Comparison: None Findings: Normal lung volumes. Lungs are clear. No pneumothorax or pleural effusion. Heart size normal. No passive venous congestion. No midline shift or tracheal deviation. No acute fracture. Impression: 1. No acute cardiopulmonary disease. This document has been electronically signed by: Chip Santizo MD on 02/28/2025 12:36:19 Dictated By: Chip Santizo MD Discharge Plan Discharge Clinical Impression: Abdominal pain, Elevated liver enzymes Patient Disposition: Home, Self-Care Instructions: Abdominal Pain (ED) Additional Instructions: You were seen in the emergency department due to multiple complaints. It was unclear what is causing you to have the symptoms however the medications that we provided to you provided you with good relief. You do have slight elevation in your liver enzymes, please follow-up with the primary care physician regarding this finding. Your chest x-ray does not show a pneumonia. Your EKG was normal. You tested negative for COVID, flu, and RSV. I am referring you to a primary care physician as you need to be followed by them. Avoid taking ibuprofen daily as this can cause you to have abdominal pain. If any new or worsening symptoms occur including but not limited to chest pain, shortness of breath, worsening abdominal pain, please seek emergent care. Prescriptions: No Action No Known Home Meds Referrals: [facility] [Physician] - Print Language: Serbian
[2025-02-28 09:04] LABS: Alanine Aminotransferase 43 U/L (0-31); Albumin Level 4.4 g/dL (3.5-5.0); Alkaline Phosphatase 64 U/L (39-117); Anion Gap 13 (12-20); Aspartate Amino Transferase 32 U/L (5-31); Bilirubin Total 0.5 mg/dL (0.0-1.0); Blood Urea Nitrogen 9 mg/dL (9-16); Calcium 9.2 mg/dL (8.4-10.2); Carbon Dioxide 20 mmol/L (22-29); Chloride 109 mmol/L (96-108); Estimated Glomerular Filt Rate > 60; Glucose Random 111 mg/dL (60-115); Potassium 3.7 mmol/L (3.3-5.1); Sodium 138 mmol/L (135-145)
[2025-02-28 09:19] LABS: Troponin-I High Sensitivity < 2.7 ng/L (<3.5-17.0)
[2025-02-28 09:22] LABS: Lipase 17 U/L (8-78)
[2025-02-28 09:25] VITALS: BP 130/81; PULSE 91; RESP 12; O2SAT 99
[2025-02-28 09:56] LABS: Influenza A PCR NEGATIVE (Negative); Influenza B PCR NEGATIVE (Negative); Resp Syncy Virus RNA Qual PCR NEGATIVE (Negative); SARS COV2 PCR INHOUSE NEGATIVE (Negative)
[2025-02-28 10:00] VITALS: BP 127/78; PULSE 79; RESP 15
[2025-02-28 10:04] LABS: D Dimer High Sensitivity < 150 NG/ML
[2025-02-28] MEDS: 0.9 % Sodium Chloride 1,000 ML 999 ML IV (10:05)
[2025-02-28] MEDS: Lidocaine HCl Viscous 2 % 15 ML SOLUTION MUCOUS MEM (10:26)
[2025-02-28] MEDS: Magnesium Hydrox/Alum Hydrox 30 ML ORAL.SUSP PO (10:26)
[2025-02-28 13:10] VITALS: BP 111/76; PULSE 78; RESP 18; TEMP 36.6; O2SAT 99
[2025-02-28 13:11] VITALS: BP 111/76; PULSE 78; RESP 18; TEMP 36.6; O2SAT 99
== END 2025-02-28 13:11 | disposition home or self-care (01) ==
PROVIDERS: Physician Assistant Medical; Emergency Provider Emergency Medicine; PCP General Practice
DX: R10.2 Pelvic and perineal pain (principal); R51.9 Headache, unspecified; R00.0 Tachycardia, unspecified; R30.0 Dysuria; R35.0 Frequency of micturition; R11.0 Nausea; R79.89 Other specified abnormal findings of blood chemistry; R06.02 Shortness of breath; Z79.899 Other long term (current) drug therapy; Z03.818 Encounter for observation for suspected exposure to other biological agents ruled out
CPT/HCPCS: 0241U; 36415; 71046; 80053; 81001; 81025; 83690; 84484; 85025; 85379; 93005; 96360; 99284; 99285

== ENCOUNTER → 2025-02-28 08:25 | Outpatient (BNV) | payer MEDICAID, SELFPAY | PROVIDERS: Emergency Provider Emergency Medicine; PCP General Practice; Visit Provider Internal Medicine | DX: R00.0 Tachycardia, unspecified (principal) | CPT/HCPCS: 93010 ==

== ENCOUNTER → 2025-02-28 10:18 | Outpatient (BNV) | payer MEDICAID, SELFPAY | PROVIDERS: Emergency Provider Emergency Medicine; PCP General Practice; Visit Provider Radiology Diagnostic Radiology | DX: R07.9 Chest pain, unspecified (principal) | CPT/HCPCS: 71046 ==

== ENCOUNTER 2025-03-14 13:32 | Outpatient (REF) | payer MEDICAID, OTHER, SELFPAY ==
--- OUTSIDE RECORDS SUMMARY | 2025-03-14 14:58 | XMS_ITS | Clinical Summary ---
Author Organization [employer] Address [address] [place] [address] Care Team Providers Care Photograph Enlarger Name Role Phone Mary Lou Guzman MD Primary Care Provider [phone] Allergies No known active allergies Medications * [...] 4 Active fluconazole (Diflucan) 150 MG tabletIndication s:Vaginal discharge Take 1 tablet (150 mg) by mouth 1 (one) time per week for 14 days. 2 tablet 5 03/28/20 25 Active Active Problems Problem Noted Date Diagnosed Date Pelvic pain 03/14/2025 Vaginal discharge 03/14/2025 Assessment & Plan (03/14/2025 10:02 AM EDT): Suspect vaginal keven will treat presumptively Labs as ordered below Adjustment disorder with anxious mood 07/19/2024 Assessment & Plan (08/09/2024 2:51 PM EDT): During IBH Consult Kathya presenting with depressed mood, hopelessness, irritable mood, loss of interests/pleasure , sense of isolation/loneliness , isolating, fatigue/loss of energy; for a period of 0-6 mo, for most or all symptoms in the context of and family issues. Patient's grandmother in [place] last month. Kathya wasn't able to travel [...] of and relationship issues. Kathya presented to [facility] with medical concerns and anxiety presentation of sxs. She reported her grandmother a week ago in [place]. Kathya wasn't able to travel and do [...] of and family issues. Patient's grandmother in [place] last month. Kathya wasn't able to travel [...] of and relationship issues. Kathya presented to [facility] with medical concerns and anxiety presentation of sxs. She reported her grandmother a week ago in [place]. Kathya wasn't able to travel and do [...] her insurance, may need to follow-up at [facility] with clinical tech Labs look hemo-concentrated, will encourage hydration Also [...] organization. Date Type Department Care Team Description 03/14/2025 9:40 AM EDT Office Visit [facility] [address] [place] [phone] Christine Sutton NP Pelvic pain (Primary Dx); Vaginal discharge 02/28/2025 Orders Only [facility] External Provider, [facility] 02/22/2025 Orders Only [facility] [address] [place] [phone] Mary Lou Guzman MD 01/14/[address] [phone] Mary Lou Guzman MD Results 01/11/2025 9:45 AM EST Office Visit [address] [address] Mary Lou Guzman MD Lower abdominal pain (Primary Dx); Encounter for immunization; Dietary counseling; Exercise counseling; Class 1 obesity without serious comorbidity with body mass index (BMI) of 34.0 to 34.9 in adult, unspecified obesity type; Keven albicans infection; Gastroesophageal reflux disease, unspecified whether esophagitis present 01/11/2025 Orders Only [facility] [address] [place] [phone] Mary Lou Guzman MD 01/11/2025 Travel 01/03/2025 9:00 AM EST Office Visit [facility] [address] [place] [phone] Kaylen Ortega Dental calculus (Primary Dx); Dental plaque; Subgingival dental calculus 12/30/2024 Patient Outreach [facility] [address] [place] [phone] Mary Lou Guzman MD Care Coordination (CHW outreach for [facility] housing search-referral completed ) 12/30/2024 Patient Outreach [facility] [address] [place] [phone] Mary Lou Guzman MD Pre-visit Planning (SDOH [...] is your housing situation today? I have patirudy jose 01/11/[address] you [...] Sign Reading Time Taken Comments Blood Pressure 125/78 03/14/2025 9:27 AM EDT Pulse 86 03/14/2025 9:27 AM EDT Temperature 36.6 ??C (97.9 ??F) 03/14/2025 9:27 AM ED T Respiratory Rate 16 03/14/2025 9:27 AM EDT Oxygen Saturation 98% 03/14/2025 9:27 AM EDT Inhaled Oxygen Concentration - - Weight 83.9 kg (185 lb) 03/14/2025 9:27 AM EDT Height 158.9 cm (5' 2.55 ) 01/11/2025 9:18 AM ES T Body Mass Index 33.24 01/11/2025 9:18 AM EST Plan of Treatment Upcoming Encounters Date Type Department Care Team (Late st Contact Info) Description 06/01/2025 3:45 PM EDT Office Visit [facility] [address] [place] [address] Mary Lou Guzman MD [address] [place] [address] 08/10/2025 10:00 AM EDT Office Visit [facility] [address] [place] [address] Kaylen Ortega Health Maintenance Due Date Last [...] 01/14/2026 01/14/2025 Tobacco Screening 01/14/2026 01/14/2025 Mammogram 02/22/2026 02/22/2025, 02/17/2024 Pap Smear 01/25/2027 01/26/2024 Dental X-Ray: [...] this topic Meningococcal Vaccine Aged Out No arndall marcos eligible based on patient's age to [...] Procedure Name Priority Date/Time Associated Diagnosis Comments XR CHEST 2 VIEWS Routine 02/28/2025 12:3 6 PM EDT D DIMER HIGH SENSITIVITY Routine 02/28/2025 9:50 AM EDT SARS COV2/INFLUENZA A/B AND RSV RNA QL NAAT Routine 02/28/2025 9:15 AM EDT HIGH SENSITIVITY TROPONIN I Routine 02/28/2025 8:37 AM EDT COMPREHENSIVE METABOLIC PANEL Routine 02/28/2025 8:37 AM EDT HCG, QL, URINE Routine 02/28/2025 8:37 AM EDT URINALYSIS, COMPLETE, WITH REFLEX TO CULTURE Routine 02/28/2025 8:37 AM EDT CBC WITH AUTO DIFFERENTIAL Routine 02/28/2025 8:37 AM EDT BI MAMMOGRAM SCREENING TOMOSYNTHESIS BILATERAL Routine 02/22/2025 11:17 AM EDT HEPATITIS C VIRAL RNA, QUANTITATIVE, REAL-TIME PCR [...] RADIOGRAPHIC IMAGES Routine 05/24/2024 10:30 AM EDT HPV MRNA E6/E7 REFLEX TO HPV 16, 18/45 Routine 01/26/2024 2:03 PM EDT PAP SMEAR Routine 01/26/2024 2:03 PM EDT from Last 3 Months or Most Recently Relevant to Health Maintenance Results * XR Chest 2 Views (02/28/2025 12:36 PM EDT) Anatomical Region Laterality Modality Chest Radiographic Fiorella ging 02/28/2025 12:3 6 PM EDT Narrative 02/28/2025 12:37 PM EDT ? [facility] ?[address] ?[place] [address] ?XRay Report ? Signed ? Patient: Wilton Jo,Kathya ?MR#: MM ?? [id number] ? : 1980 ?Acct:[id number] ? Age/Sex: 44 / F ?ADM Date: 04/21/25 ? Loc: HO.ED ? Attending Dr: ? Ordering Physician: Maya García ?? Date of Service: 02/28/25 ?? Procedure(s): XR chest 2V ?? Accession Number(s): [id number] ? cc: Mary Lou Guzman; Maya Gacría ? CLINICAL HISTORY: CP ? 2 view chest x-ray. ? Comparison: None ? Findings: ?? Normal lung volumes. ?? Lungs are clear. ?? No pneumothorax or pleural effusion. ?? Heart size normal. No passive venous congestion. ?? No midline shift or tracheal deviation. ?? No acute fracture. ? Impression: ?? 1. No acute cardiopulmonary disease. ? This document has been electronically signed by: Chip Santizo MD on ?? 02/28/2025 12:36:19 ? Dictated By: ?Chip Santizo MD ? Signed By: ?<Electronically signed by Chip Santizo MD in OV> ?02/28/25 1237 ? DD/ 1236 ? TD/TT: 02/28/25 1236 ? Jackscrew Man: ? Procedure Note Donallenchristineter, Image - 02/28/2025 [place] [address] XRay Report Signed Patient: Moreno Hair#: [id number] : 1980Acct:[id number] Age/Sex: 44 / FADM Date: 02/28/25 Loc: HO.ED Attending Dr: Ordering Physician: Maya García Date of Service: 02/28/25 Procedure(s): XR chest 2V Accession Number(s): [id number] cc: Mary Lou Guzman; aMya García CLINICAL HISTORY: CP 2 view chest x-ray. Comparison: None Findings: Normal lung volumes. Lungs are clear. No pneumothorax or pleural effusion. Heart size normal. No passive venous congestion. No midline shift or tracheal deviation. No acute fracture. Impression: 1. No acute cardiopulmonary disease. This document has been electronically signed by: Chip Santizo MD on 02/28/2025 12:36:19 Dictated By: Chip Santizo MD Signed By: <Electronically signed by Chip Santizo MD in OV> 02/28/25 1237 DD/ 1236 TD/TT: 02/28/25 1236 Jackscrew Man: [facility] External Provider IMG XR PROCEDURES Edited Result - Final * D Dimer High Sensitivity (02/28/2025 9:50 AM EDT) D Dimer High Sensitivity <150 NG/ML [facility] Comment:D-DIMER HS REFERENCE RANGENote: Our assay reports D-Dimer Units (D- DU).The cut-off value for venous thromboembolic (VTE) disease is230 ng/mL. This value has a very high negative predictivevalue when the patient has a low to moderate clinicalprobability of VTE.The upper limit of normal is 243 ng/mL. 02/28/2025 9:50 AM EDT 02/28/2025 9:53 AM EDT Generic External Data Provider LAB BLOOD ORDERAB LES Final Result [facility] [address] [place] [phone] * SARS-CoV-2 RNA, Influenza A/B, and RSV RNA, Ql NAAT (02/28/2025 9:15 AM EDT) Pathologist [facility] Influenza A PCR NEGATIVE Negative [facility] Influenza B PCR NEGATIVE Negative [facility] Resp Syncy Virus RNA Qual PCR NEGATIVE Negative [facility] SARS COV2 PCR NEGATIVE Negative [facility] Comment:All test results mus t be correlated with clinical findings.Negative results do not preclude SARS-CoV2, influenza Avirus, influenza B virus and/or RSV infectionand should not be used as the sole basis for treatment orother patient management decisions. Negative results must becombined with clinical observations, patient history, andepidemiological information.This test has not been evaluated for monitoring treatment ofinfection.This test has been authorized by the FDA under an EmergencyUse Authorization (EUA) for use by authorized laboratories.Testing performed on the [employer] GeneXpert utilizingreal-time RT-PCR.All SARS CoV2 and positive influenza A/B results arereported to [facility]. 02/28/2025 9:15 AM EDT 02/28/2025 9:19 AM EDT Generic External Data Provider LAB MICROBIOLOGY - GENERAL ORDERABLES Final Result Performing Organization Address [facility]/ZIP Co de Phone Number [facility] [address] [place] [phone] * High Sensitivity Troponin I (02/28/2025 8:37 AM EDT) [facility] TROPONIN I HIGH SENSITIVITY <2.7 <3.5 - 17.0 ng/L [facility] Comment:The Mares high sens itivity Troponin-I results should beused in conjunction with other diagnostic information suchas ECG, clinical observations and information, and patientsymptoms to aid in the diagnosis of [place]. 02/28/2025 8:37 AM EDT 02/28/2025 8:41 AM EDT Generic External Data Provider LAB BLOOD ORDERAB LES Final Result Performing Organization Address [facility]/ZIP Co de Phone Number [facility] [address] [place] [phone] * (ABNORMAL) Urinalysis, Complete, with Reflex to Culture (02/28/2025 8:37 AM EDT) Only the most recent of2 resultswithin the time period is included. Color Urine Yellow [facility] Appearance Urine Clear [facility] PH 6.0 5.0 - 9.0 [facility] Glucose Urine UA Negative Negative mg/dL [facility] Urine Blood Trace(A) Negative [facility] Specific [place] - Urine <=1.005 1.005 - 1.025 [facility] Urine Protein Negative Neg-Trace mg/dL [facility] Urine Ketones Negative Negative mg/dL [facility] Nitrite Urine Negative Negative [facility] Leukocyte Esterase Urine Negative Negative [facility] RBC Urine 0-2 0 - 2 /HPF [facility] Urine WBC 0-5 0 - 5 /HPF [facility] Urine Squamous Epithelial Cell 0-2 0 - 2 /HPF [facility] Urine Bacteria None Seen None Seen [facility] Hyaline Casts, Urine 0-2 0 - 2 /LPF [facility] 02/28/2025 8:37 AM EDT 02/28/2025 8:41 AM EDT Narrative [facility] - 02/28/2025 8:55 AM EDT [id number], Clean Catch us Generic External Data Provider LAB URINE ORDERAB LES Final Result [facility] [address] [place] [address] [phone] * CBC auto differential (02/28/2025 8:37 AM EDT) Only the most recent of2 resultswithin the time period is included. White Blood Count 6.9 4.8 - 10.8 X10*3/uL [facility] Red Blood Count 4.62 4.20 - 5.50 X10*6/uL [facility] Hemoglobin 13.5 12.0 - 16.0 g/dl [facility] Hematocrit 40.3 37.0 - 47.0 % [facility] Mean Corpuscular Volume 87.2 80.0 - 98.0 fL [facility] Mean Corpuscular Hemoglobin 29.2 27.0 - 33.0 pg [facility] Mean Corpuscular HGB Conc 33.5 31.0 - 35.0 g/dl [facility] Red Cell Distribution Width 14.2 11.0 - 16.0 % [facility] Platelet Count 393 160 - 400 X10*3/uL [facility] Mean Platelet Volume 9.7 9.4 - 12.3 fL [facility] Neutrophils Percent Auto 63.2 45 - 73 % [facility] Imm Gran Pct Auto 0.3 0.0 - 0.4 % [facility] Lymphocytes Percent Auto 26.7 20 - 40 % [facility] Monocytes Percent Auto 6.3 2 - 11 % [facility] Eosinophils Percent Auto 2.6 0 - 4 % [facility] Basophils Percent Auto 0.9 0 - 2 % [facility] NRBC Pct Auto 0.0 0.0 - 0.2 /100WBC [facility] Neutrophils Absolute Auto 4.4 2.0 - 8.3 x10*3/uL [facility] Imm Gran Abs Auto 0.02 0.00 - 0.03 X10*3/uL [facility] Lymphocytes Absolute Auto 1.8 1.2 - 4.9 X10*3/uL [facility] Monocytes Absolute Auto 0.4 0.1 - 1.2 X10*3/uL [facility] Eosinophils Absolute Auto 0.2 0.0 - 0.4 X10*3/uL [facility] Basophils Absolute Auto 0.1 0.0 - 0.2 X10*3/uL [facility] NRBC Abs Auto 0.000 0.0 - 0.012 X10*3/uL [facility] 02/28/2025 8:37 AM EDT 02/28/2025 8:41 AM EDT us Generic External Data Provider LAB BLOOD ORDERAB LES Final Result [facility] [address] [place] [phone] * HCG, Qualitative, Urine (02/28/2025 8:37 AM EDT) Urine NEGATIVE NEGATIVE [facility] Comment:This test was develo ped to detect early . Falsenegative results may occur after the 5th - 7th week ofpregnancy when using this test method. If clinicallyindicated, consider a serum hCG. 02/28/2025 8:37 AM EDT 02/28/2025 8:41 AM EDT us Generic External Data Provider LAB URINE ORDERAB LES Final Result [facility] [address] [place] [phone] * (ABNORMAL) Comprehensive Metabolic Panel (02/28/2025 8:37 AM EDT) Only the most recent of2 resultswithin the time period is included. Sodium 138 135 - 145 mmol/L [facility] Potassium 3.7 3.3 - 5.1 mmol/L [facility] Chloride 109(H) 96 - 108 mmol/L [facility] Carbon Dioxide 20(L) 22 - 29 mmol/L [facility] Anion Gap 13 12 - 20 [facility] Urea Nitrogen (BUN) 9 9 - 16 mg/dL [facility] Creatinine, Serum 0.74 0.5 - 1.4 mg/dL [facility] Creatinine Clr Calc Pharmacy 103.0 [facility] Comment:Provided height and weight: 162.56 cm,84.4 kg.eGFR (calculated from the MDRD study equation) and eCrCl(calculated from the Cockcroft-Gault equation) are based ondifferent parameters and may not yield comparable results.If eCrCl result is absurd, please check patient'sheight/weight. Estimated Glomerular Filt Rate >60 [facility] Comment:Chronic Kidney Disea se: Estimated GFR < 60 mL/min/1.72n6Mtjksa Kidney Disease: Estimated GFR < 15 mL/min/1.73m2 Glucose 111 60 - 115 mg/dL [facility] Calcium 9.2 8.4 - 10.2 mg/dL [facility] Bilirubin, Total 0.5 0.0 - 1.0 mg/dL [facility] Aspartate Amino Transferase 32(H) 5 - 31 U/L [facility] Alanine Aminotransferase 43(H) 0 - 31 U/L [facility] Total Protein 8.0 6.5 - 8.0 g/dL [facility] Albumin Level 4.4 3.5 - 5.0 g/dL [facility] Alkaline Phosphatase 64 39 - 117 U/L [facility] 02/28/2025 8:37 AM EDT 02/28/2025 8:41 AM EDT us Generic External Data Provider LAB BLOOD ORDERAB LES Final Result [facility] [address] [place] [phone] * BI Mammogram Screening Tomosynthesis Bilateral (02/22/2025 11:17 AM EDT) Anatomical Region Laterality Modality Breast Bilateral Mammography 02/22/2025 11:1 7 AM EDT Narrative 03/04/2025 2:05 PM EDT ? [facility] ? [address] ?[place] [address] ?[phone] ? Mammography Report ? Signed ? Patient: Kathya Hair ?MR#: MM ?? [id number] ? : 1980 ?Acct:[id number] ? Age/Sex: 44 / F ?ADM Date: 04/15/25 ? Loc: HO.MAMMO ? Attending Umm Post CNM ? Ordering Physician: Mary Lou Guzman ?Results: 1Negative ? Date of Service: /15/25 ?Follow Up: 1 Year From Orig ?? inal Mammogram ? Procedure(s): MM tomosynthesis screening BI ?? Accession Number(s): [id number] ? cc: Mary Lou Guzman ? EXAMINATION: ?? MM SCREENING DIGITAL BREAST TOMOSYNTHESIS, BILATERAL ? CLINICAL INFORMATION: ? Screening. Asymptomatic. ? COMPARISON: ?? Mammography: Comparison is made with available priors ? TECHNIQUE: ?? Digital breast mammography with tomosynthesis is performed in both the ?? craniocaudal and mediolateral oblique views along with computer-aided ?? detection (CAD). ? FINDINGS: ?? There are scattered areas [...] due date for their next mammogram. ? Electronically signed by: ??Violet Boykin DO ??03/04/2025 02:02 PM EDT ?? RP ? Dictated By: ?Violet Boykin DO ? Signed By: ?<Electronically signed by Violet Boykin DO in OV> ? 03/04/25 1402 ? DD/ 1117 ? TD/TT: 02/22/25 1141 ? Jackscrew Man: ? Procedure Note Boris, Image - 03/04/2025 [facility] [address] [place] [address] Dr. [place], [place] [address] Mammography Report Signed Patient: Kathya Hair#: [id number] : 1980Acct:[id number] Age/Sex: 44 / FADM Date: 02/22/25 Loc: HO.MAMMO Attending Dr: Nathaly Post CNM Ordering Physician: Colleen Guzmanults: 1Negative Date of Service: 02/22/25Follow Up: 1 Year From Orig ina Mammogram Procedure(s): MM tomosynthesis screening BI Accession Number(s): [id number] cc: Mary Lou Guzman EXAMINATION: MM SCREENING DIGITAL BREAST TOMOSYNTHESIS, BILATERAL CLINICAL INFORMATION: Screening. Asymptomatic. COMPARISON: Mammography: Comparison is made with available priors TECHNIQUE: Digital breast mammography with tomosynthesis is performed in both the craniocaudal and mediolateral oblique views along with computer-aided detection (CAD). FINDINGS: There are scattered areas of fibroglandular [...] target due date for their next mammogram. Electronically signed by: Violet Boykin DO 03/04/2025 02:02 PM EDT Dictated By: Violet Boykin DO Signed By: <Electronically signed by Violet Boykin DO in OV> 03/04/25 1402 DD/ 1117 TD/TT: 02/22/25 1141 Jackscrew Man: Mary Lou Guzman MD IMG BI PROCEDURES Edited Resul t - Final * TSH W/Reflex to FT4 (01/11/2025 10:27 AM EST) TSH reflex Free T4 1.18 0.32 - 4.0 uIU/mL [facility] Blood Venous blood specimen / Unknown 01/11/2025 10:27 AM EST 01/11/2025 11:24 AM EST Mary Lou Guzman MD LAB BLOOD ORDERABLES Final Res ult [facility] [address] [place] [phone] * Hepatitis C Viral RNA, Quantitative, Real-Time PCR (01/11/2025 10:27 AM EST) [facility] Hepatitis C Viral Load <15 NOT DETECTED NOT DETECTED IU/mL [facility] HCV Log PCR <1.18 NOT DETECTED NOT DETECTED Log IU/mL [facility] Comment:For additional infor radha, please refer tohttp://[email or web address] [employer]faq/DDO05j1(This link is being provided for informational/educational purposes only.)THIS TEST WAS PERFORMED AT:[employer] [place] [phone] OMER MD 01/11/2025 10:2 7 AM EST 01/13/2025 11:35 AM EST Mary Lou Guzman MD LAB BLOOD ORDERABLES Final Res ult Performing Organization Address [facility] de Phone Number [facility] [address] [place] [phone] * (ABNORMAL) Hepatitis C Antibody with Reflex to HCV, RNA, Quantitative, Real- Time PCR (01/11/2025 10:27 AM EST) [facility] Hepatitis C Antibody Reactive( A) Nonreactive [facility] Comment:Presumptive evidence of antibodies to HCV. Blood Venous blood specimen / Unknown 01/11/2025 10:27 AM EST 01/11/2025 11:24 AM EST Mary Lou Guzman MD LAB BLOOD ORDERABLES Final Res ult Performing Organization Address [facility] Co de Phone Number [facility] [address] [place] [phone] * HIV-1/2 Antigen and Antibodies, Fourth Generation, with Reflexes (01/11/2025 10:27 AM EST) HIV AB/AG Nonreactive Nonreactive [facility] Comment:HIV-1 p24 Ag and/or HIV-1/HIV-2 Ab not detected.A test result that is nonreactive does not exclude thepossibility of exposure to or infection with HIV-1 and/orHIV-2. Nonreactive results in this assay for individualswith prior exposure to HIV-1 and/or HIV-2 may be due toantigen and antibody levels that are below the limit ofdetection of this assay.The [employer] HIV Ag/Ab Combo assay result andsupplemental assay results should be interpreted inconjunction with the patient's clinical presentation,history and other laboratory results. If the results areinconsistent with clinical evidence, additional testing issuggested to confirm the result. Blood Venous blood specimen / Unknown 01/11/2025 10:27 AM EST 01/11/2025 11:24 AM EST us Mary Lou Guzman MD LAB BLOOD ORDERABLES Final Res ult [facility] [address] [place] [phone] * Hemoglobin A1c (01/11/2025 10:27 AM EST) Pathologist [facility] Hemoglobin A1c 5.5 <6.0 % [facility] Comment:Hemoglobin A1C Refer ence Range Adults: 4.8 - 6.0 % Non diabetic: < 6.0 % Goal: < 7.0 %Additional Action Suggested: > 8.0 %Note: Hemoglobin A1c results are invalid for patients with abnormal amounts of HbF. Blood transfusions may impact the HbA1c concentration in the patient sample. Estimated Average Glucose 111 mg/dL [facility] Comment:eAG = Estimated ave rage glucose which is %A1C expressed asaverage glucose, using the formula of the D9T-MlwgnatMqezmlu Glucose study (ADAG), Diabetes Care, Vol.31,#8,Jun. 2007 Blood Venous blood specimen / Unknown 01/11/2025 10:27 AM EST 01/11/2025 11:24 AM EST Mary Lou Guzman MD LAB BLOOD ORDERABLES Final Res ult Performing Organization Address [facility]/ZIP Co de Phone Number [facility] [address] [place] [phone] * (ABNORMAL) Bacterial Vaginosis Panel (01/11/2025 10:13 AM EST) TRICHOMONAS VAGINALIS DETECTION BY PCR NOT DETECTED Not Detect [facility] BACTERIAL VAGINOSIS DETECTION BY PCR NEGATIVE Negative [facility] Comment:The BV organism targ ets [...] evaluatedin patients under the age of 14. KEVEN GROUP DETECTION BY PCR DETECTED(A) Not Detect [facility] Keven glab krusei PCR NOT DETECTED Not Detect [facility] Swab Vaginal structure / Unknown 01/11/2025 10:13 AM EST 01/11/2025 2:03 PM EST Mary Lou Guzman MD LAB MICROBIOLOGY - GENERAL ORD ERABLES Final Result Performing Organization Address [facility] Co de Phone Number [facility] [address] [place] [phone] * HPV mRNA E6/E7 w/Reflex to HPV Genotypes 16, 18/45 (01/26/2024 2:03 PM EDT) HPV nRNA E6/E7 Not Detected Not Detected [facility] Comment:Methodology: Transcr iption-Mediated AmplificationThis assay detects E6/E7 viral messenger RNA (mRNA) from 14high-risk HPV types (16,18,31,33,35,39,45,51,52,56,58,59,66,68).Cervical sources are required for HPV testing.If a vaginal source from a patient who has had atotal hysterectomy with removal of cervix wassubmitted, please contact the testing laboratoryfor alternative testing options.For additional information, please refer tohttp://education.20/20 [employer]faq/GFD993i6(This link if provided for information/educational purposes only.)THIS TEST WAS PERFORMED AT:[employer] [place] [id number] OMER MD HPV mRNA E6/E7 TNP [facility] HPV 16 RNA TNP [facility] HPV 18/45 RNA [facility] 01/26/2024 2:03 PM EDT 01/27/2024 10:20 AM EDT Catherine Mcadams [employer] [facility] CYTOLOGY ORDERABLES Final Result [facility] [address] [place] [address] [phone] * Pap Smear (01/26/2024 2:03 PM EDT) 01/26/2024 2:03 PM EDT 01/27/2024 10:20 AM EDT Narrative [facility] - 02/06/2024 6:54 AM EDT ----- ------- Name: Kathya Hair ? Age/Sex: 43/F ? : 1980 Unit#: [id number] ?? Attend Dr: CATHERINE MCADAMS SCOOPER ?Re01/26/24 ?Status: DEP REF ? Location: HO.LNP ?Disch: ? ----- ------- SPEC : [id number] ? RECD: 01/27/24-1020 ? STATUS: ??SOUT ? REQ NUM: [id number] ? ROYA: 01/26/24-1403 ? SUBM DR: CATHERINE MCADAMS SCOOPER ? ENTERED: ??01/27/24-1221 ?SP TYPE: Pap Smr [...] 66, 68) ?? HPV testing performed by [employer], [place], [place]. ??See reference laboratory ?? portion of the EMR for entire report. ?Clinical Information LMP: 01/20/2024 Previous PAP test: Unknown date, WNL Other history: No known hx of HPV or ASCUS, lower abdominal pain ? Material Received ?? ThinPrep-Vaginal/Cervical ----- ------- Signed (signature on file) ARUN Meeks (ASCP) 02/06/24 0654 ? ----- ------- ? END OF REPORT ? us Catherine Mcadams [facility] CYTOLOGY ORDERABLES Final Result [facility] [address] [place] [address] [phone] from Last 3 Months or Most Recently Relevant to Health Maintenance Insurance [place] F[place] DENTAL - [facility]SN FULL (MEDICAID) DENTAL-[facility] MEDICAID LIMITED ADULT Care Teams Photograph Enlarger Relationship Specialty Start Date End Date Mary Lou Guzman MD [address] [facility] [place] [address] PCP - General Family Medicine 01/11/25
--- OUTSIDE RECORDS SUMMARY | 2025-03-14 14:58 | XMS_ITS | Encounter Summary ---
Author Organization [employer] Address [address] [facility] [address] [place] [address] Care Team Providers Care Crane Man Name Role Phone Mary Lou Guzman MD Primary Care Provider [phone] Reason for Visit * Reason Comments Pelvic Pain Encounter Details Date Type Department Care Team ([facility] st Contact Info) Description 03/14/2025 9:40 AM EDT Office Visit [facility] [address], [place] [phone] Christine Sutton NP [address] [place], [place] [phone] Pelvic pain (Primary Dx); Vaginal discharge Social History Tobacco Use Types Packs/Day Years [...] (185 lb) 03/14/2025 9:27 AM EDT Height - - Body Mass Index 33.24 01/11/2025 9:18 AM EST documented in this encounter Progress Notes * Christine Sutton NP - 03/14/2025 9:40 AM EDT Subjective Kathya Jo is a 44 y.o. female who presents to the office for follow up visit - chronic conditions. Interim history: Seen in er : MDM Narrative: This is a 44-year-old Romanian-speaking female, with a history of hepatitis-B, who presents emergency department for evaluation of headache, chest pain, shortness for breath, back pain. Patient is well-appearing, vital signs within normal limits, she is speaking in full sentences under no acute distress. She has had multiple complaints, does mention some shortness of breath and chest pain. On arrival, patient tachycardic at 119bpm oxygen saturation 98% on room air. Lungs are clear to auscultation bilaterally. She is well-appearing under no acute distress. Labs were obtained prior to my evaluation, she has no leukocytosis, stable H H, chemistry revealing no evidence of MAT. AST ALT slightly elevated at 32 and 43, lipase within normal limits. Troponin less than 2.7. No need for repeat as chest pain has been intermittent for the last 3 days. She has had no recent travel, surgery, hospitalizations. Differential diagnoses include acute viral illness, gastritis, gastroenteritis, UTI. Plan: Viral swabs, we will continue to closely monitor. Differential Diagnosis Differential Diagnoses: The differential diagnosis associated with the presentation includes See above Admission/Observation Consideration of admission/observation: Escalation of care including admission/observation considered Lab Data MDM Lab Attestation statement: I reviewed the patient's lab results. No leukocytosis, stable H H, chemistry feeling no evidence of MAT, slight elevation in AST and ALT. Troponin less than 2.7. Chest pain has been occurring for the last 3 days, no need for repeat. Urine does not appear to be infected. Negative flu, COVID, RSV. Ua neg Cbc wnl Mild elevation in lfts (ast 32, alt 43) Current concerns: Lower abdominal pain, reports this pain started 2 weeks ago, different from pain evaluated by er Pain occurs all day, lower anterior pelvic pain, denies pain with urination , when having intercourse, and feels pain inside, no new partners Pain with sex, 15 days ago, penis was swollen and had red dots, Vaginal discharge, yes, felt hot, some itching, does not touch it, endorses more mucous, no odor Attempted mitronazidole 1 day, but it didn't do anything Primary symptom is pain with sex and itching No chance of had menses since 02/10/25 and has not had sex Patient Active Problem List Diagnosis Hepatitis B Pain of both breasts Lower abdominal pain Adjustment disorder with anxious mood Bereavement Pelvic pain Vaginal discharge Review of Systems HENT: Negative for congestion and dental problem. Respiratory: Negative for apnea and chest tightness. Genitourinary: Positive for dyspareunia and vaginal discharge. Negative for decreased urine volume,menstrual problem and pelvic pain. Objective Visit Vitals BP 125/78 (BP Location: Left arm, Patient Position: Sitting, BP Cuff Size: Adult) Pulse 86 Temp 97.9 ??F (36.6 ??C) (Temporal) Resp 16 Wt 185 lb (83.9 kg) SpO2 98% BMI 33.24 kg/m?? OB Status Having periods Smoking Status Never BSA 1.92 m?? Physical Exam Constitutional: Appearance: Normal appearance. HENT: Head: Normocephalic and atraumatic. Pulmonary: Effort: Pulmonary effort is normal. Abdominal: General: Abdomen is flat. Palpations: Abdomen is soft. Musculoskeletal: Cervical back: Neck supple. Skin: General: Skin is warm. Neurological: Mental Status: She is alert. Assessment/Plan Problem List Items Addressed This Visit Pelvic pain - Primary Vaginal discharge Current Assessment & Plan Suspect vaginal keven will treat presumptively Labs as ordered below Relevant Medications fluconazole (Diflucan) 150 MG tablet Other Relevant Orders Chlamydia/N. Gonorrhoeae RNA, TMA, Urogenitial Bacterial Vaginosis Panel Current Outpatient Medications Medication Sig Dispense Refill Blood Pressure Monitoring (Omron 3 Series BP Monitor) device USE TO CHECK BLOOD PRESSURE TWICE DAILY (Patient not taking: Reported on 01/03/2025) fluconazole (Diflucan) 150 MG tablet Take 1 tablet (150 mg) by mouth 1 (one) time per week for 14 days. 2 tablet 0 hydrOXYzine pamoate (Vistaril) 25 MG capsule Take 1 capsule (25 mg) by mouth if needed at bedtime for anxiety. 30 capsule 11 omeprazole (PriLOSEC) [address] capsule TAKE 1 CAPSULE BY MOUTH EVERY DAY BEFORE BREAKFAST. DO NOT BREAK, CRUSH, DISSOLVE OR CHEW. No current facility-administered medications for this visit. Visit Conducted in: Romanian Translation by: medical interpreter [id number] gauzz language documented in this encounter Miscellaneous Notes * Assessment & Plan Note - Christine Sutton NP - 03/14/2025 10:02 AM EDTAssociated Problem(s): Vaginal discharge Suspect vaginal keven will treat presumptively Labs as ordered below documented in this encounter Plan of Treatment Upcoming Encounters Date Type Department Care Team (Late st Contact Info) Description 06/01/2025 3:45 PM EDT Office Visit [facility] [address] [place] [phone] Mary Lou Guzman MD [address] [place] [address] 08/10/2025 10:00 AM EDT Office Visit [facility] [address] [place] [address] Kaylen Ortega Scheduled Orders Name Type Priority Associated Diagnoses Orde r Schedule Chlamydia/N. Gonorrhoeae RNA, TMA, Urogenitial Microbiology Routine Vaginal discharge Ordered: 03/14/2025 Bacterial Vaginosis Panel Microbiology Routine Vaginal discharge Ordered: 03/14/2025 documented as of this encounter Visit Diagnoses Diagnosis Pelvic pain- Primary Vaginal discharge Leukorrhea, not specified as infective documented in this encounter Additional Health Concerns Assessment Noted Time PHQ-9 Depression Total Score: 0 01/12/20 9:20 AM EST documented as of this encounter Care Teams Crane Man Relationship Specialty Start Date End Date Mary Lou Guzman MD [address] [place] [phone] PCP - General Family Medicine 01/11/25 documented as of this encounter
[2025-03-14 16:23] LABS: Bacterial Vaginosis PCR NEGATIVE (Negative); Candida Group PCR NOT DETECTED (Not Detect); Candida glab krusei PCR DETECTED (Not Detect); Trichomonas vaginalis PCR NOT DETECTED (Not Detect)
[2025-03-14 16:55] LABS: CT PCR NOT DETECTED (Not Detect.); NG PCR NOT DETECTED (Not Detect.)
== END 2025-03-14 13:33 | disposition home or self-care (01) ==
LOC: HO.HHCLNP 13:32
PROVIDERS: Visit Provider Nurse Practitioner Family
DX: N89.8 Other specified noninflammatory disorders of vagina (principal)
CPT/HCPCS: 81515; 87491; 87591

== ENCOUNTER 2025-05-04 13:01 | Outpatient (REF) | payer MEDICAID, OTHER, SELFPAY | END 2025-05-04 13:02 | disposition home or self-care (01) | LOC: HO.HHCLNP 13:01 | PROVIDERS: Visit Provider Family Medicine | DX: N39.0 Urinary tract infection, site not specified (principal) | CPT/HCPCS: 87086; 87147 ==

== ENCOUNTER 2025-05-22 13:02 | Emergency (ER) | payer MEDICAID, OTHER, SELFPAY ==
--- NOTE | ~2025-05-22 | US_ITS ---
CLINICAL HISTORY: vag bleeding US OB 1st Trimester transabdominal and transvaginal with Doppler Comparison: None provided Findings: Single intrauterine . Possible gestational sac within the uterus measuring 4 mm x 6 mm x 6 mm. EGA: 5 weeks, 0 days. Yolk sac is not seen. Cardiac activity: None detected No subchorionic bleed. Right ovary 1.5 x 2.9 x 2.3 cm. Left ovary 2 x 2.4 x 1.7 cm. Normal color Doppler with arterial/venous spectral tracing of [both ovaries. IMPRESSION: 1. Findings consistent with a single intrauterine estimated 5 weeks, 0 days gestational age by today's ultrasound criteria. Continued follow up is recommended to document viability. 2. No evidence of ovarian torsion. This document has been electronically signed by: Umm Dick MD on 05/22/2025 16:08:08
[2025-05-22 13:53] VITALS: BP 138/79; PULSE 88; RESP 20; TEMP 36.5; O2SAT 99; BMI 32.2
--- NOTE | 2025-05-22 13:56 | ED.GENADULT ---
HPI - General Adult General Chief complaint: Vaginal Bleeding Stated complaint: vaginal bleeding/ Time Seen by Provider: 05/22/25 15:54 History of Present Illness ED Provider: Yamila ABDI narrative: The patient is a 44-year-old woman whose last menstrual period was at the end of March. She has missed 1. . She estimates that she might be about 1 month . Today she has developed some vaginal spotting. She comes to the emergency room because of this vaginal spotting. No significant abdominal pain. No heavy bleeding. The patient says that she has had 3 miscarriages in the past. She has also carried 3 pregnancies determined she has 3 children. Her oldest child is 25, her youngest 11. She says that this was not a planned . Related Data Home Medications ?Medication ?Instructions ?Recorded ?Confirmed No Known Home Meds 02/28/25 02/28/25 Allergies Allergy/AdvReac Type Severity Reaction Status Date / Time No Known Allergies Allergy Verified 05/22/25 13:57 [facility] Social History Social History Advance Directives: No Advance Directives Information Provided: No Do you have a plan to hurt others: No Plan Physical Exam ED Vital Signs: Vital Signs - 24 hr 05/22/25 13:53 05/22/25 16:59 Temperature 97.7 F 0 F L Pulse Rate 88 74 Respiratory Rate 20 16 Blood Pressure 138/79 112/70 Pulse Oximetry 99 99 Oxygen Delivery Method Room Air Room Air BMI result Body Mass Index 32.2 Course Course Course Narrative: Medical screening exam performed. Please refer to detailed history, exam, evaluation, and management by primary provider. 44-year-old female, , 6 weeks by LMP of April 08, presents for evaluation of vaginal spotting with wiping that began prior to arrival. She denies any abdominal pain. No history of similar symptoms. Denies any trauma. She denies any past medical history. Labs, UA and ultrasound ordered. Medical Decision Making Medical Decision Making [facility] Narrative: The patient is a 44-year-old woman who is With what I believe is her 7th . She has 3 children and has had 3 miscarriages. Her last menstrual period was at the end of March. She estimates she is about 1 month based on dates. She comes the emergency room with slight vaginal bleeding and no abdominal pain. She has a completely benign clinical appearance and physical exam. Her beta hCG is 357. A pelvic ultrasound shows: IMPRESSION: 1. Findings consistent with a single intrauterine estimated 5 weeks, 0 days gestational age by today's ultrasound criteria. Continued follow up is recommended to document viability. 2. No evidence of ovarian torsion. no yolk sac was seen and no cardiac activity was seen. My suspicion is the patient is probably having an early miscarriage of a blighted . The patient was informed this may be an early miscarriage in that it would be reasonable for her to have repeat beta-hCG in 2 days. She is referred to [facility] And is also referred to her primary care doctor for possible outpatient testing for repeat beta-hCG testing in 2 days on FridayMay 24. if she cannot arrange testing as an outpatient she may return to the emergency room instead. In either event if she is significantly worse she should return to the emergency room. Lab Data 05/22/25 14:05 05/22/25 14:05 Labs: Lab Results 05/22/25 05/22/25 Range/Units 14:05 15:36 WBC 7.8 (4.8-10.8) X10*3/uL RBC 4.48 (4.20-5.50) X10*6/uL Hgb 13.1 (12.0-16.0) g/dl Hct 39.2 (37.0-47.0) % MCV 87.5 (80.0-98.0) fL MCH 29.2 (27.0-33.0) pg MCHC 33.4 (31.0-35.0) g/dl RDW 14.7 (11.0-16.0) % Plt Count 369 (160-400) X10*3/uL MPV 9.8 (9.4-12.3) fL Immature Gran % (Auto) 0.3 (0.0-0.4) % Neut % (Auto) 61.9 (45-73) % Lymph % (Auto) 26.7 (20-40) % [place] % (Auto) 7.1 (2-11) % Eos % (Auto) 3.2 (0-4) % Baso % (Auto) 0.8 (0-2) % Lymph # (Auto) 2.1 (1.2-4.9) X10*3/uL [place] # (Auto) 0.6 (0.1-1.2) X10*3/uL Eos # (Auto) 0.3 (0.0-0.4) X10*3/uL Baso # (Auto) 0.1 (0.0-0.2) X10*3/uL Abs Immat Gran (auto) 0.02 (0.00-0.03) X10*3/uL Absolute Neuts (auto) 4.8 (2.0-8.3) x10*3/uL Absolute Nucleated RBC 0.000 (0.0-0.012) X10*3/uL Nucleated RBC % (auto) 0.0 (0.0-0.2) /100WBC PT 12.0 (10.9-12.4) SEC INR 1.0 (0.9-1.1) Sodium 141 (135-145) mmol/L Potassium 3.9 (3.3-5.1) mmol/L Chloride 107 (96-108) mmol/L Carbon Dioxide 25 (22-29) mmol/L Anion Gap 13 (12-20) BUN 13 (9-16) mg/dL Creatinine 0.66 (0.5-1.4) mg/dL Estim Creat Clear Calc 109.4 Estimated GFR > 60 Random Glucose 99 (60-115) mg/dL Calcium 9.4 (8.4-10.2) mg/dL Beta HCG, Quant 357 mIU/mL Urine Color Yellow Urine Appearance Clear Urine pH 6.0 (5.0-9.0) Ur Specific [place] 1.010 (1.005-1.025) Urine Protein Negative (Neg-Trace) mg/dL Urine Glucose (UA) Negative (Negative) mg/dL Urine Ketones Negative (Negative) mg/dL Urine Blood Small (1+) H (Negative) Urine Nitrite Negative (Negative) Ur Leukocyte Esterase Negative (Negative) Urine RBC 0-2 (0-2) /HPF Urine WBC 0-5 (0-5) /HPF Ur Squamous Epith Cells 0-2 (0-2) /HPF Urine Bacteria None Seen (None Seen) Hyaline Casts 0-2 (0-2) /LPF Blood Type O Positive Discharge Plan Discharge Clinical Impression: Threatened miscarriage in early Patient Disposition: Home, Self-Care Instructions: Threatened Miscarriage (ED) Additional Instructions: The ultrasound today shows an early with the an your uterus. It is too early to say if this is a that we will continue or whether the bleeding is a sign of a possible miscarriage. In order to help determine his state of this will need to have a repeat blood test in 2 days. The blood test is called a Beta-HCG. Please try contacting [facility] women services tomorrow to see if they can arrange this for you. Also your regular doctor's office might be able to arrange this is well. However if neither of these offices can arrange for this blood test on Friday you should return to the emergency room here. Additionally if you have any significant worsening of bleeding or pain you should return to the emergency room also. Prescriptions: No Action No Known Home Meds Referrals: [facility] Women's [facility] [Provider Group] Referral Note: Threated miscarriage, need for repeat beta-HCG on FridayMay 24 Mary Lou Guzman MD [Physician, Internal Medicine] Referral Note: need for repeat Beta-HCG on FridayMay 24 Interventions: ED Discharge Assessment Last Done: 05/22/25 16:59 Discharge Date/Time: 05/22/25 17:00 Print Language: Maltese
[2025-05-22 14:10] LABS: MANUAL DIFF FLAG NO
[2025-05-22 14:11] LABS: Hematocrit 39.2 % (37.0-47.0); Hemoglobin 13.1 g/dl (12.0-16.0); Imm Gran Abs Auto 0.02 X10*3/uL (0.00-0.03); Imm Gran Pct Auto 0.3 % (0.0-0.4); Lymphocytes Absolute Auto 2.1 X10*3/uL (1.2-4.9); Mean Corpuscular HGB Conc 33.4 g/dl (31.0-35.0); Mean Corpuscular Hemoglobin 29.2 pg (27.0-33.0); Mean Corpuscular Volume 87.5 fL (80.0-98.0); NRBC Abs Auto 0.000 X10*3/uL (0.0-0.012); NRBC Pct Auto 0.0 /100WBC (0.0-0.2); Platelet Count 369 X10*3/uL (160-400); Red Blood Count 4.48 X10*6/uL (4.20-5.50); White Blood Count 7.8 X10*3/uL (4.8-10.8)
[2025-05-22 14:17] LABS: INTERNATIONAL NORM RATIO 1.0 (0.9-1.1); Prothrombin Time 12.0 SEC (10.9-12.4)
[2025-05-22 14:34] LABS: Anion Gap 13 (12-20); Blood Urea Nitrogen 13 mg/dL (9-16); Calcium 9.4 mg/dL (8.4-10.2); Carbon Dioxide 25 mmol/L (22-29); Chloride 107 mmol/L (96-108); Creatinine Clr Calc Pharmacy 109.4; Estimated Glomerular Filt Rate > 60; Potassium 3.9 mmol/L (3.3-5.1); Sodium 141 mmol/L (135-145)
[2025-05-22 15:51] LABS: Appearance Urine Clear; Glucose Urine UA Negative (Negative); PH 6.0 (5.0-9.0); Specific Gravity - Urine 1.010 (1.005-1.025); UMIC TRIGGER UA YES
[2025-05-22 16:59] VITALS: BP 112/70; PULSE 74; RESP 16; TEMP -17.7; TEMP 0; O2SAT 99
== END 2025-05-22 17:00 | disposition home or self-care (01) ==
PROVIDERS: Physician Assistant; Emergency Provider Emergency Medicine
DX: O20.0 Threatened abortion (principal); R10.2 Pelvic and perineal pain; Z79.899 Other long term (current) drug therapy
CPT/HCPCS: 36415; 76801; 76817; 80048; 81001; 84702; 85025; 85610; 86900; 86901; 99282; 99284

== ENCOUNTER → 2025-05-22 13:56 | Outpatient (BNV) | payer SELFPAY | PROVIDERS: Emergency Provider Emergency Medicine; Visit Provider Radiology Diagnostic Radiology | DX: O26.851 Spotting complicating pregnancy, first trimester (principal) | CPT/HCPCS: 76801; 76817 ==

== ENCOUNTER 2025-05-24 08:03 | Outpatient (REF) | payer MEDICAID, OTHER, SELFPAY ==
--- OUTSIDE RECORDS SUMMARY | 2025-05-24 08:07 | XMS_ITS | Encounter Summary ---
Author Organization [employer] Address [address] [facility] 7[address] [place] [address] Care Team Providers Care Passenger Interline Clerk Name Role Phone Mary Lou Guzman MD Primary Care Provider [phone] Encounter Details Date Type Department Care Team (Late st Contact Info) Description 05/22/2025 Orders Only GENERIC EXTERNAL DATA DEPARTMENT Provider, Generic External Data Social History Tobacco Use Types Packs/Day Years [...] as of this encounter Plan of Treatment Upcoming Encounters Date Type Department Care Team (Late st Contact Info) Description 06/01/2025 3:45 PM EDT Office Visit [facility] MED[facility] [address] [place], [place] [phone] Mary Lou Guzman MD [address] [place] [address] 08/10/2025 10:00 AM EDT Office Visit [facility] ADULT DENTAL [address] [place] [address] Kaylen Ortega documented as of this encounter Procedures Procedure Name Priority Date/Time Associated Diagnosis Comments US OB PELVIS TRANSVAGINAL Routine 05/22/2025 4:08 PM EDT URINALYSIS, COMPLETE Routine 05/22/2025 3:36 PM EDT CBC WITH AUTO DIFFERENTIAL Routine 05/22/2025 2:05 PM EDT ABO GROUP AND RH TYPE Routine 05/22/2025 2:05 PM EDT PROTHROMBIN TIME-INR Routine 05/22/2025 2:05 PM EDT HCG, TOTAL, QN Routine 05/22/2025 2:05 PM EDT BASIC METABOLIC PANEL Routine 05/22/2025 2:05 PM EDT documented in this encounter Results * US OB Pelvis with Transvaginal (05/22/2025 4:08 PM EDT) Anatomical Region Laterality Modality Pelvis Ultrasound 05/22/2025 4:08 PM EDT Narrative 05/22/2025 4:09 PM EDT [address] [address] Ultrasound Report Signed Patient: Kathya Hair MR#: [id number] : 1980 Acct:[id number] Age/Sex: 44 / F ADM Date: 05/22/25 Loc: HO.ED Attending Dr: Ordering Physician: Tobin Arthur Date of Service: 05/22/25 Procedure(s): US OB pelvic and transvaginal Accession Number(s): [id number] cc: [facility]; Tobin Arthur CLINICAL HISTORY: vag bleeding US OB 1st Trimester transabdominal and transvaginal with Doppler Comparison: None provided Findings: Single intrauterine . Possible gestational sac within the uterus measuring 4 mm x 6 mm x 6 mm. EGA: 5 weeks, 0 days. Yolk sac is not seen. Cardiac activity: None detected No subchorionic bleed. Right ovary 1.5 x 2.9 x 2.3 cm. Left ovary 2 x 2.4 x 1.7 cm. Normal color Doppler with arterial/venous spectral tracing of [both ovaries. IMPRESSION: 1. Findings consistent with a single intrauterine estimated 5 weeks, 0 days gestational age by today's ultrasound criteria. Continued follow up is recommended to document viability. 2. No evidence of ovarian torsion. This document has been electronically signed by: Umm Dick MD on 05/22/2025 16:08:08 Dictated By: Umm Dick MD Signed By: <Electronically signed by Umm Dick MD in OV> 05/22/25 1609 DD/ 1608 TD/TT: 05/22/25 1608 Medical Billing Instructor: Procedure Note Donotuseinterpreter, Image - 05/22/[address] [address] Ultrasound Report Signed Patient: Kathya HairMR#: [id number] : 1980Acct:[id number] Age/Sex: 44 / FADM Date: 05/22/25 Loc: HO.ED Attending Dr: Ordering Physician: Tobin Arthur Date of Service: 05/22/25 Procedure(s): US OB pelvic and transvaginal Accession Number(s): [id number] cc: [facility]; Tobin Arthur CLINICAL HISTORY: vag bleeding US OB 1st Trimester transabdominal and transvaginal with Doppler Comparison: None provided Findings: Single intrauterine . Possible gestational sac within the uterus measuring 4 mm x 6 mm x 6 mm. EGA: 5 weeks, 0 days. Yolk sac is not seen. Cardiac activity: None detected No subchorionic bleed. Right ovary 1.5 x 2.9 x 2.3 cm. Left ovary 2 x 2.4 x 1.7 cm. Normal color Doppler with arterial/venous spectral tracing of [both ovaries. IMPRESSION: 1. Findings consistent with a single intrauterine estimated 5 weeks, 0 days gestational age by today's ultrasound criteria. Continued follow up is recommended to document viability. 2. No evidence of ovarian torsion. This document has been electronically signed by: Umm Dick MD on 05/22/2025 16:08:08 Dictated By: Umm Dick MD Signed By: <Electronically signed by Umm Dick MD in OV> 05/22/25 1609 DD/ 1608 TD/TT: 05/22/25 1608 Medical Billing Instructor: [facility] External Provider IMG US PROCEDURES Final Result * (ABNORMAL) Urinalysis Complete (05/22/2025 3:36 PM EDT) Color Urine Yellow [facility] Appearance Urine Clear [facility] PH 6.0 5.0 - 9.0 [facility] Glucose Urine UA Negative Negative mg/dL [facility] Urine Blood Small (1+)(A) Negative [facility] Specific [place] - Urine 1.010 1.005 - 1.025 [facility] Urine Protein Negative Neg-Trace mg/dL [facility] Urine Ketones Negative Negative mg/dL [facility] Nitrite Urine Negative Negative [facility] Leukocyte Esterase Urine Negative Negative [facility] RBC Urine 0-2 0 - 2 /HPF [facility] Urine WBC 0-5 0 - 5 /HPF [facility] Urine Squamous Epithelial Cell 0-2 0 - 2 /HPF [facility] Urine Bacteria None Seen None Seen [facility] Hyaline Casts, Urine 0-2 0 - 2 /LPF [facility] 05/22/2025 3:36 PM EDT 05/22/2025 3:46 PM EDT Generic External Data Provider LAB URINE ORDERAB LES Final Result Performing Organization Address [facility] de Phone Number [facility] [address] [place] [phone] * hCG, Total, Quantitative (05/22/2025 2:05 PM EDT) HCG Quantitative 357 mIU/mL [facility] Comment:Weeks post LMP Appro ximate hCG(Last Menstrual Period) Range (mIU/ml)3 - 4 weeks 9 - 1304 - 5 weeks 75 - 2,6005 - 6 weeks 850 - 20,8006 - 7 weeks 4000 - 100,2007 - 12 weeks 11,500 - 289,94225 - 16 weeks 18,300 - 137,69357 - 29 weeks (2nd trimester) 1,400 - 53,83775 - 41 weeks (3rd trimester) 940 - 60,000The Mares B- hCG assay is used for the early detection ofpregnancy; it cannot be used to diagnose any conditionunrelated to . If a B-hCG level is not supportedby the clinical evidence, results should be confirmed by analternative method (qualitative urine hCG, for example). 05/22/2025 2:05 PM EDT 05/22/2025 2:09 PM EDT us Generic External Data Provider LAB BLOOD ORDERAB LES Final Result Performing Organization Address [facility] Co de Phone Number [facility] [address] [place] [address] [phone] * Basic Metabolic Panel (05/22/2025 2:05 PM EDT) Sodium 141 135 - 145 mmol/L [facility] Potassium 3.9 3.3 - 5.1 mmol/L [facility] Chloride 107 96 - 108 mmol/L [facility] Carbon Dioxide 25 22 - 29 mmol/L [facility] Anion Gap 13 12 - 20 [facility] Urea Nitrogen (BUN) 13 9 - 16 mg/dL [facility] Creatinine, Serum 0.66 0.5 - 1.4 mg/dL [facility] Creatinine Clr Calc Pharmacy 109.4 [facility] Comment:Provided height and weight: 160 cm,82.5 kg.eGFR (calculated from the MDRD study equation) and eCrCl(calculated from the Cockcroft-Gault equation) are based ondifferent parameters and may not yield comparable results.If eCrCl result is absurd, please check patient'sheight/weight. Estimated Glomerular Filt Rate >60 [facility] Comment:Chronic Kidney Disea se: Estimated GFR < 60 mL/min/1.25n5Sngvlw Kidney Disease: Estimated GFR < 15 mL/min/1.73m2 Glucose 99 60 - 115 mg/dL [facility] Calcium 9.4 8.4 - 10.2 mg/dL [facility] 05/22/2025 2:05 PM EDT 05/22/2025 2:09 PM EDT us Generic External Data Provider LAB BLOOD ORDERAB LES Final Result [facility] [address] [place] [phone] * ABO Group And RH Type (05/22/2025 2:05 PM EDT) Blood Type OP [facility] Comment:RH IMMUNE GLOBULIN I NDICATED: NO 05/22/2025 2:05 PM EDT 05/22/2025 2:10 PM EDT Generic External Data Provider LAB BLOOD BANK TE ST ORDERABLES Final Result Performing Organization Address [facility] Co de Phone Number [facility] [address] [place] [phone] * Prothrombin Time-INR (05/22/2025 2:05 PM EDT) [facility] Prothrombin Time 12.0 10.9 - 12.4 SEC [facility] INTERNATIONAL NORM RATIO 1.0 0.9 - 1.1 [facility] Comment:INTERNATIONAL NORMAL IZED RATIO (INR) REFERENCE RANGES Reference RangeFor patients not on anticoagulant therapy: 0.9 - 1.1INR ranges for oral anticoagulanttherapy:For prevention and treatment of venous thrombosis and pulmonary embolism: 2.0 - 3.0For acute myocardial infarction with aspirin therapy: 2.0 - 3.0For acute myocardial infarction without aspirin therapy: 3.0 - 4.0For patients with mechanical prosthetic heart valves: 2.5 - 3.5 05/22/2025 2:05 PM EDT 05/22/2025 2:09 PM EDT Generic External Data Provider LAB BLOOD ORDERAB LES Final Result Performing Organization Address [facility] de Phone Number [facility] [address] [place] [phone] * CBC auto differential (05/22/2025 2:05 PM EDT) Pathologist [facility] White Blood Count 7.8 4.8 - 10.8 X10*3/uL [facility] Red Blood Count 4.48 4.20 - 5.50 X10*6/uL [facility] Hemoglobin 13.1 12.0 - 16.0 g/dl [facility] Hematocrit 39.2 37.0 - 47.0 % [facility] Mean Corpuscular Volume 87.5 80.0 - 98.0 fL [facility] Mean Corpuscular Hemoglobin 29.2 27.0 - 33.0 pg [facility] Mean Corpuscular HGB Conc 33.4 31.0 - 35.0 g/dl [facility] Red Cell Distribution Width 14.7 11.0 - 16.0 % [facility] Platelet Count 369 160 - 400 X10*3/uL [facility] Mean Platelet Volume 9.8 9.4 - 12.3 fL [facility] Neutrophils Percent Auto 61.9 45 - 73 % [facility] Imm Gran Pct Auto 0.3 0.0 - 0.4 % [facility] Lymphocytes Percent Auto 26.7 20 - 40 % [facility] Monocytes Percent Auto 7.1 2 - 11 % [facility] Eosinophils Percent Auto 3.2 0 - 4 % [facility] Basophils Percent Auto 0.8 0 - 2 % [facility] NRBC Pct Auto 0.0 0.0 - 0.2 /100WBC [facility] Neutrophils Absolute Auto 4.8 2.0 - 8.3 x10*3/uL [facility] Imm Gran Abs Auto 0.02 0.00 - 0.03 X10*3/uL [facility] Lymphocytes Absolute Auto 2.1 1.2 - 4.9 X10*3/uL [facility] Monocytes Absolute Auto 0.6 0.1 - 1.2 X10*3/uL [facility] Eosinophils Absolute Auto 0.3 0.0 - 0.4 X10*3/uL [facility] Basophils Absolute Auto 0.1 0.0 - 0.2 X10*3/uL [facility] NRBC Abs Auto 0.000 0.0 - 0.012 X10*3/uL [facility] 05/22/2025 2:05 PM EDT 05/22/2025 2:09 PM EDT us Generic External Data Provider LAB BLOOD ORDERAB LES Final Result [facility] [address] [place] [phone] documented in this encounter Visit Diagnoses Not on filedocumented in this encounter Additional Health Concerns Assessment Noted Time PHQ-9 Depression Total Score: 0 01/12/20 9:20 AM EST documented as of this encounter Care Teams Passenger Interline Clerk Relationship Specialty Start Date End Date Mary Lou Guzman MD [address] [place] [address] PCP - General Family Medicine 01/11/25 documented as of this encounter
== END 2025-05-24 08:04 | disposition home or self-care (01) ==
LOC: HO.HHCL 08:03
PROVIDERS: PCP General Practice; Visit Provider General Practice
DX: Z34.90 Encounter for supervision of normal pregnancy, unspecified, unspecified trimester (principal)
CPT/HCPCS: 36415; 84702

== ENCOUNTER 2025-06-02 08:08 | Outpatient (REF) | payer MEDICAID, OTHER, SELFPAY ==
--- OUTSIDE RECORDS SUMMARY | 2025-06-02 08:15 | XMS_ITS | Encounter Summary ---
Author Organization [employer] Address [address] [address] [place] [address] Care Team Providers Care Forest Ecology Professor Name Role Phone Mary Lou Guzman MD Primary Care Provider [phone] Encounter Details Date Type Department Care Team ([facility] st Contact Info) Description 05/23/2025 Orders Only [facility] [address] [place], [place] [phone] Mary Lou Guzman MD [address] [place], [place] [phone] Early stage of (Primary Dx) Social History Tobacco Use Types Packs/Day Years [...] Description 08/10/2025 10:00 AM EDT Office Visit [facility] ADULT [facility] [address] [place] [address] Kaylen Ortega Scheduled Orders Name Type Priority Associated Diagnoses Orde r Schedule hCG, Total, Quantitative Lab Routine Early stage of Expected: 05/24/2025 (Approximate), Expires: 05/24/2026 documented as of this encounter Procedures Procedure Name Priority Date/Time Associated Diagnosis Comments HCG, TOTAL, QN Routine 05/24/2025 8:08 AM EDT Early stage of documented in this encounter Results * hCG, Total, Quantitative (05/24/2025 8:08 AM EDT) HCG Quantitative 172 mIU/mL [facility] Comment:Weeks post LMP Appr oximate hCG(Last Menstrual Period) Range (mIU/ml)3 - 4 weeks 9 - 1304 - 5 weeks 75 - 2,6005 - 6 weeks 850 - 20,8006 - 7 weeks 4000 - 100,2007 - 12 weeks 11,500 - 289,23812 - 16 weeks 18,300 - 137,40219 - 29 weeks (2nd trimester) 1,400 - 53,09161 - 41 weeks (3rd trimester) 940 - 60,000The Mares B- hCG assay is used for the early detection ofpregnancy; it cannot be used to diagnose any conditionunrelated to . If a B-hCG level is not supportedby the clinical evidence, results should be confirmed by analternative method (qualitative urine hCG, for example). Blood Venous blood specimen / Unknown 05/24/2025 8:08 AM EDT 05/24/2025 11:06 AM EDT us Mary Lou Guzman MD LAB BLOOD ORDERABLES Final Res ult [facility] [address] [place] [phone] documented in this encounter Visit Diagnoses Diagnosis Early stage of - Primary state, incidental documented in this encounter Additional Health Concerns Assessment Noted Time PHQ-9 Depression Total Score: 0 01/12/20 9:20 AM EST documented as of this encounter Care Teams Forest Ecology Professor Relationship Specialty Start Date End Date Mary Lou Guzman MD [address] [place] [phone] PCP - General Family Medicine 01/11/25 documented as of this encounter
[2025-06-02 12:02] LABS: Cholesterol 184 mg/dL (<200); HDL Cholesterol 59 mg/dL (>40); Triglycerides 130 mg/dL (<150)
== END 2025-06-02 08:09 | disposition home or self-care (01) ==
LOC: HO.HHCL 08:08
PROVIDERS: PCP General Practice; Visit Provider General Practice
DX: O03.9 Complete or unspecified spontaneous abortion without complication (principal); E66.811 Obesity, class 1; Z68.30 Body mass index [BMI] 30.0-30.9, adult
CPT/HCPCS: 36415; 80061; 84702

== ENCOUNTER 2025-08-26 12:24 | Emergency (ER) | payer MEDICAID, OTHER, SELFPAY ==
[2025-08-26 12:27] VITALS: BP 128/60; PULSE 93; RESP 16; TEMP 36.6; O2SAT 100; BMI 26.1
--- NOTE | 2025-08-26 12:32 | ECG_ITS ---
Test Reason : DIZZY Blood Pressure : */* mmHG Vent. Rate : 96 BPM Atrial Rate : 96 BPM P-R Int : 126 ms QRS Dur : 72 ms QT Int : 366 ms P-R-T Axes : 25 15 16 degrees QTcB Int : 462 ms Normal sinus rhythm Normal ECG When compared with ECG of 28-Feb-2025 08:29, No significant change was found Referred By: Juvenal Sloan Electronically Signed By: Aldair Carlos
--- NOTE | 2025-08-26 12:34 | ED_ITS ---
HPI - General Adult General Chief complaint: Abdominal Pain Stated complaint: Lower Abd Pain, Headaches Time Seen by Provider: 08/26/25 13:12 History of Present Illness ED Provider: Dillon Roberto MD HPI narrative: This is a relatively healthy 44-year-old female who has no diagnosed history of diabetes but was hyperglycemic on 's glucometer yesterday in the 200s. The patient primarily comes in for 1 week of lower abdominal pain across the lower abdomen no laterality. Burning with the urination no flank pain. Denies subjective fever today but felt mild chills yesterday. She has a history of [place] no upper abdominal pain. Nausea no vomiting. Slight decreased appetite. No trauma to the abdomen she reports being with spontaneous miscarriage about 4 months ago she was given the depot vera injection and has had spontaneous intermittent and small volume bleeding since . Related Data Previous Rx's ?Medication ?Instructions ?Recorded cefadroxil 1 gram tablet 1,000 mg PO BID 3 days #7 ta bs 08/26/25 Allergies Allergy/AdvReac Type Severity Reaction Status Date / Time No Known Allergies Allergy Verified 08/26/25 12:31 [facility] Social History Social History Advance Directives: No Advance Directives Information Provided: Yes Physical Exam ED Exam Exam: EXAM: Gen: Alert, awake, well appearing, well hydrated. Head: Atraumatic Eyes: Anicteric, Normal conjunctiva. ENT: Moist mucosa, no pallor. ? Neck: Supple. Skin: ?No observable rash or bruising on exposed or examined skin Respiratory: Breathing comfortably, No distress.Clear to auscultation bilaterally, symmetric chest expansion, No wheeze, rales, ronchi. Cardiovascular: Regular rate and rhythm. No murmurs or rub. Well perfused periphery, warm extremities. No edema. ? Abdominal: Mild lower abdominal tenderness. Right upper quadrant open cholecystectomy scar. Soft, no objective distension. No palpable masses or obvious organomegaly. ?No guarding, no rebound tenderness or other peritoneal findings. : No flank tenderness. Vital Signs: Vital Signs - 24 hr 08/26/25 12:27 Temperature 97.8 F Pulse Rate 93 Respiratory Rate 16 Blood Pressure 128/60 Pulse Oximetry 100 Oxygen Delivery Method Room Air BMI result Body Mass Index 26.1 Course Course Course Narrative: RME; for edema presents to ED for headache, dizziness lower abdominal pain without any nausea vomiting or diarrhea. Labs ordered Medications Administered Discontinued Medications Generic Name Dose Route Start Last Admin Trade Name Lary PRN Reason Stop Dose Admin Cephalexin HCl 1,000 mg 08/26/25 14:22 08/26/25 15:56 Cephalexin 500 Mg Capsule PO 08/26/25 14:23 1,000 mg ONCE ONE Administration Ibuprofen 600 mg 08/26/25 13:41 08/26/25 14:00 Ibuprofen 600 Mg Tablet PO 08/26/25 13:42 600 mg ONCE ONE Administration Phenazopyridine HCl 200 mg 08/26/25 13:41 08/26/25 14:00 Phenazopyridine Hcl 200 Mg Tablet PO 08/26/25 13:42 200 mg ONCE ONE Administration Medical Decision Making Medical Decision Making MDM Narrative: Medical Decision Makin-year-old female with burning dysuria and lower abdominal pain no flank pain. No systemic symptoms. Looks well on exam with only minimal lower abdominal tenderness. No suggestion of pyelonephritis or ascending UTI. There are WBCs and leukocyte esterase in the UA. Empiric treatment. Cefadroxil 1000 b.i.d. for 3 days Preliminary Favored Differential Diagnosis: [ ] among additional considered etiologies Testing Interpreted Independently: ?See below for details Radiology or Lab testing Results Reviewed: ?See below for details Consults: ?See below for details Independent Historians/External Chart Reviews: ?See below for details Social Determinants of Health Impacting MDM/Planning: ?See below for details Lab Data MDM Lab Attestation statement: I reviewed the patient's lab results. 08/26/25 12:40 08/26/25 12:40 Labs: Lab Results 08/26/25 08/26/25 Range/Units 12:40 14:02 WBC 6.0 (4.8-10.8) X10*3/uL RBC 4.38 (4.20-5.50) X10*6/uL Hgb 13.0 (12.0-16.0) g/dl Hct 39.9 (37.0-47.0) % MCV 91.1 (80.0-98.0) fL MCH 29.7 (27.0-33.0) pg MCHC 32.6 (31.0-35.0) g/dl RDW 14.2 (11.0-16.0) % Plt Count 302 (160-400) X10*3/uL MPV 10.1 (9.4-12.3) fL Immature Gran % (Auto) 0.2 (0.0-0.4) % Neut % (Auto) 53.5 (45-73) % Lymph % (Auto) 36.0 (20-40) % [place]ison % (Auto) 7.5 (2-11) % Eos % (Auto) 1.8 (0-4) % Baso % (Auto) 1.0 (0-2) % Lymph # (Auto) 2.2 (1.2-4.9) X10*3/uL [place] # (Auto) 0.5 (0.1-1.2) X10*3/uL Eos # (Auto) 0.1 (0.0-0.4) X10*3/uL Baso # (Auto) 0.1 (0.0-0.2) X10*3/uL Abs Immat Gran (auto) 0.01 (0.00-0.03) X10*3/uL Absolute Neuts (auto) 3.2 (2.0-8.3) x10*3/uL Absolute Nucleated RBC 0.000 (0.0-0.012) X10*3/uL Nucleated RBC % (auto) 0.0 (0.0-0.2) /100WBC Sodium 143 (135-145) mmol/L Potassium 3.4 (3.3-5.1) mmol/L Chloride 112 H (96-108) mmol/L Carbon Dioxide 23 (22-29) mmol/L Anion Gap 11 L (12-20) BUN 10 (9-16) mg/dL Creatinine 0.66 (0.5-1.4) mg/dL Estim Creat Clear Calc 114.1 Estimated GFR > 60 Random Glucose 106 (60-115) mg/dL Calcium 9.2 (8.4-10.2) mg/dL Total Bilirubin 0.8 (0.0-1.0) mg/dL AST 31 (5-31) U/L ALT 55 H (0-31) U/L Alkaline Phosphatase 70 (39-117) U/L Troponin I High Sens < 2.7 (<3.5-17.0) ng/L Total Protein 7.5 (6.5-8.0) g/dL Albumin 4.5 (3.5-5.0) g/dL Lipase 17 (8-78) U/L Beta HCG, Quant < 2 mIU/mL Urine Color Yellow Urine Appearance Clear Urine pH 6.0 (5.0-9.0) Ur Specific [place] 1.015 (1.005-1.025) Urine Protein Negative (Neg-Trace) mg/dL Urine Glucose (UA) Negative (Negative) mg/dL Urine Ketones Negative (Negative) mg/dL Urine Blood Trace H (Negative) Urine Nitrite Negative (Negative) Ur Leukocyte Esterase Small (1+) H (Negative) Urine RBC 0-2 (0-2) /HPF Urine WBC 11-20 H (0-5) /HPF Ur Squamous Epith Cells 3-5 (0-2) /HPF Urine Bacteria None Seen (None Seen) Hyaline Casts 0-2 (0-2) /LPF Discharge Plan Discharge Clinical Impression: Cystitis Patient Disposition: Home, Self-Care Instructions: Urinary Tract Infection in Women (DC) Additional Instructions: _ DISCHARGE DIAGNOSES: Urinary tract infection/cystitis uncomplicated HISTORY OF PRESENTATION: ?Lower abdominal pain and burning dysuria EMERGENCY DEPARTMENT COURSE,TESTS, TREATMENTS: While in the ED today labs are reassuring. Urinalysis shows UTI DISCHARGE MEDICATIONS: ?[We have made no changes to your regular medication regimen] we have added on cefadroxil 1000 mg twice per day for the next 3 days you can take an evening dose tonight and continue 3 additional days FOLLOW-UP: ?Call your primary or general physician soon as possible to discuss your symptoms, your ED visit and to discuss follow up plans pcp INSTRUCTIONS ?& RETURN PRECAUTIONS: If any symptoms change first call your primary physician, if it is after-hours your primary doctors office should have a provider weatherization installer you can speak with. If the symptoms are severe or very concerning to you then call 911 or return to the ED. [07] Dillon Roberto MD Emergency Physician [facility] Prescriptions: New cefadroxil 1 gram tablet 1,000 mg PO BID 3 Days Qty: 7 0RF Interventions: ED Discharge Assessment Last Done: 08/26/25 16:37 Discharge Date/Time: 08/26/25 16:38 Print Language: Bulgarian
[2025-08-26 12:48] LABS: MANUAL DIFF FLAG NO
[2025-08-26 12:53] LABS: Hematocrit 39.9 % (37.0-47.0); Hemoglobin 13.0 g/dl (12.0-16.0); Imm Gran Abs Auto 0.01 X10*3/uL (0.00-0.03); Imm Gran Pct Auto 0.2 % (0.0-0.4); Lymphocytes Absolute Auto 2.2 X10*3/uL (1.2-4.9); Mean Corpuscular HGB Conc 32.6 g/dl (31.0-35.0); Mean Corpuscular Hemoglobin 29.7 pg (27.0-33.0); Mean Corpuscular Volume 91.1 fL (80.0-98.0); NRBC Abs Auto 0.000 X10*3/uL (0.0-0.012); NRBC Pct Auto 0.0 /100WBC (0.0-0.2); Platelet Count 302 X10*3/uL (160-400); Red Blood Count 4.38 X10*6/uL (4.20-5.50); White Blood Count 6.0 X10*3/uL (4.8-10.8)
[2025-08-26 13:15] LABS: Alanine Aminotransferase 55 U/L (0-31); Albumin Level 4.5 g/dL (3.5-5.0); Alkaline Phosphatase 70 U/L (39-117); Anion Gap 11 (12-20); Aspartate Amino Transferase 31 U/L (5-31); Blood Urea Nitrogen 10 mg/dL (9-16); Calcium 9.2 mg/dL (8.4-10.2); Carbon Dioxide 23 mmol/L (22-29); Chloride 112 mmol/L (96-108); Creatinine Clr Calc Pharmacy 114.1; Estimated Glomerular Filt Rate > 60; Lipase 17 U/L (8-78); Potassium 3.4 mmol/L (3.3-5.1); Sodium 143 mmol/L (135-145); Total Protein 7.5 g/dL (6.5-8.0)
[2025-08-26 13:27] LABS: Troponin-I High Sensitivity < 2.7 ng/L (<3.5-17.0)
[2025-08-26 14:08] LABS: Appearance Urine Clear; Glucose Urine UA Negative (Negative); PH 6.0 (5.0-9.0); Specific Gravity - Urine 1.015 (1.005-1.025); UMIC TRIGGER UACC YES
[2025-08-26 14:13] LABS: UACC Culture Trigger YES
--- OUTSIDE RECORDS SUMMARY | 2025-08-26 16:06 | XMS_ITS | Clinical Summary ---
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 30 capsule 4 Active Additional Information Patient not taking.Reported on 06/01/2025 omeprazole (PriLOSEC) [address] Pereyra ons:Gastroesoph ageal reflux disease, unspecified whether esophagitis present TAKE 1 CAPSULE BY MOUTH EVERY DAY BEFORE BREAKFAST. DO NOT BREAK, CRUSH, DISSOLVE OR CHEW. 4 Active multivitamin () 27-0.8 MG tablet Take 1 tablet by mouth Once per day. 30 tablet 5 Active Additional Information Patient not taking.Reported on 06/01/2025 pyridoxine (Vitamin B-6) 25 MG tablet Take 1 tablet (25 mg) by mouth if needed in the morning, at noon, and at bedtime (nausea). 30 tablet 5 05/04/20 26 Active Additional Information Patient not taking.Reported on 06/01/2025 medroxyPROGESTE Vito (Depo-Provera) 150 MG/ML injection Inject 1 mL (150 mg) into the muscle every 3 (three) months. 1 mL 3 5 Active chlorhexidine (Peridex) 0.12 % solution Use 15 mL in the mouth or throat if needed (for mouthwash 15 ml for 30 seconds, swish and spit) for up to 14 days. 473 mL 5 08/24/20 25 Hospital, Clinic, or Other Facility Administered Medication Ordered Dose Route Frequency Start Date End Date Status medroxyPROGESTERone (Depo-Provera) injection 150 mgIndications:Encounte r for initial prescription of injectable contraceptive 150 mg IM Every 3 months 06/13/2025 09/05/2026 Active Active Problems Problem Noted Date Diagnosed Date Pelvic pain 03/14/2025 Adjustment disorder with anxious mood 07/19/2024 Assessment & Plan (08/09/2024 2:51 PM EDT): During IBH Consult Kathya presenting with depressed mood, hopelessness, irritable mood, loss of interests/pleasure , sense of isolation/loneliness , isolating, fatigue/loss of energy; for a period of 0-6 mo, for most or all symptoms in the context of and family issues. Patient's grandmother in [place] last month. Kathya wasn't able to travel [...] of and relationship issues. Kathya presented to [facility] with medical concerns and anxiety presentation of sxs. She reported her grandmother a week ago in [place]. Kathya wasn't able to travel and do [...] of and family issues. Patient's grandmother in [place] last month. Kathya wasn't able to travel [...] of and relationship issues. Kathya presented to [facility] with medical concerns and anxiety presentation of sxs. She reported her grandmother a week ago in [place]. Kathya wasn't able to travel and do [...] her insurance, may need to follow-up at [facility] with optical fabricator Labs look hemo-concentrated, will encourage hydration Also [...] in bowel habits, vaginal discharge, or fever Resolved Problems Problem Noted Date Diagnosed Date Resolved Date Vaginal discharge 03/14/2025 05/04/2025 Assessment & Plan (03/14/2025 10:02 AM EDT): Suspect vaginal keven will treat presumptively Labs as ordered below Encounters Date Type Department Care Team Description 08/26/2025 Orders Only GENERIC EXTERNAL DATA DEPARTMENT Provider, Generic External Data 08/10/2025 10:00 AM EDT Office Visit [facility] [address] [place] [phone] Kaylen Ortega Encounter for dental examination (Primary Dx); Dental calculus; Periodontal disease; Dental plaque; Subgingival dental calculus 07/14/2025 9:30 AM EDT Clinical Support [address] [address] Marielena Garcia, KEI Depo-Provera contraceptive status 07/14/2025 Travel 06/13/2025 10:00 AM EDT Clinical Support [address] [address] Marielena Garcia, KEI Encounter for initial prescription of injectable contraceptive 06/13/2025 Travel 06/07/[address] [address] Flakita Gan RN Appointment Request 06/01/2025 3:45 PM EDT Office Visit [address] [address] Mary Lou Guzman MD Class 1 obesity without serious comorbidity with body mass index (BMI) of 30.0 to 30.9 in adult, unspecified obesity type (Primary Dx); Miscarriage; Encounter for initial prescription of injectable contraceptive 06/01/2025 Travel 05/31/[address] [address] Mary Lou Guzman MD chart prep from Last 3 Months Immunizations Immunization Administration Dates Next Due Influenza, seasonal, injectable, [...] Date Recorded Patient Health Questionnaire-9 Score 0 06/01/2025 Patient Health Questionnaire-9 Score 0 06/01/2025 Last PHQ-9: Questionnaire Data Not on file 0 06/01/2025 Housing Stability Answer Date Recorded What is [...] Date Recorded Patient Health Questionnaire-2 Score 0 06/01/2025 Internet Access Answer Date Recorded Internet Access Q1 Yes 12/30/2024 Internet Access Q2 Not on file 12/30/2024 Comments No Intention Date Recorded No desire to become (finding) 0 06/13/2025 Sex and Gender Information Value Date Recorded Sex Assigned at Female 09/03/2023 8:51 AM EDT Legal Sex Female 8:48 AM EDT Gender Identity Female 09/03/2023 8:51 AM EDT Sexual Orientation Straight 08/09/2024 12 :11 PM EDT Last Filed Vital Signs Vital Sign Reading Time Taken Comments Blood Pressure 130/86 06/01/2025 3:46 PM EDT Pulse 72 06/01/2025 3:46 PM EDT Temperature 36.4 C (97.6 F) 06/01/2025 3:46 PM EDT Respiratory Rate 16 06/01/2025 3:46 PM EDT Oxygen Saturation 98% 05/24/2025 9:46 AM EDT Inhaled Oxygen Concentration - - Weight 82.3 kg (181 lb 6.4 oz) 06/01/2025 3:46 P M EDT Height 160 cm (5' 2.99 ) 06/01/2025 3:46 PM EDT Body Mass Index 32.14 06/01/2025 3:46 PM EDT Plan of Treatment Upcoming Encounters Date Type Department Care Team (Late st Contact Info) Description 09/05/2025 9:30 AM EDT Clinical Support [facility] [address] [place] [address] Health Maintenance Due Date Last Done Comments HPV Vaccines (1 - 3-dose series) 1996 DTaP/Tdap/Td Vaccines (1 - Tdap) 2000 Hepatitis A Vaccines (1 of 2 - Risk 2-dose series) 2000 Hepatitis B Vaccines (1 of 3 - 19+ 3-dose series) 2000 Dental Prophylaxis 07/04/2025 01/03/2025, 06/22/2024 Influenza Vaccine (#1) 2025 01/11/2025 SDOH Screening 01/11/2026 01/11/2025 Dental Oral Exam 02/09/2026 08/10/2025, 01/03/2025, 05/24/2024 Mammogram 02/22/2026 02/22/2025, 02/17/2024 Alcohol/Substance Use Screening 06/01/2026 06/01/2025 Depression Screening 06/01/2026 06/01/2025, 06/01/2025 Disability Screening 06/01/2026 06/01/2025 Family Planning (PISQ) 06/13/2026 06/13/2025 Tobacco Screening 08/10/2026 08/10/2025 Dental X-Ray: Bitewings 08/11/2026 08/10/20 25, 05/24/2024 Pap Smear 01/25/2027 01/26/2024 Dental X-Ray: Full Mouth 05/25/2027 05/24/2024 Cervical Cancer Screening 01/25/2029 HPV/Cotest 01/25/2029 01/26/2024 Lipid Panel 06/02/2030 06/02/2025 Zoster Vaccines (1 of 2) 2031 RSV Patients and Patients Aged 60 years or older (1 - 1-dose 75+ series) 2056 COVID-19 Vaccine Completed 01/11/2025 HIV Screening Completed 01/11/2025 Hepatitis C Screening Completed 01/11/2025 , 01/11/2025 HIB Vaccines Aged Out No longer eligi ble based on patient's age to complete this topic IPV Vaccines Aged Out No longer eligi ble based on patient's age to complete this topic Meningococcal B Vaccine Aged Out No l onger eligible based on patient's age to complete this topic Meningococcal Vaccine Aged Out No randall marcos eligible based on patient's age to complete this topic Pneumococcal Vaccine: Pediatrics (0 to 5 Years) and At-Risk Patients (6 to 49) Years Aged Out No longer eligible b ased on patient's age to complete this topic RSV under 20 months Aged Out No longe r eligible based on patient's age to complete this topic Rotavirus Vaccines Aged Out No longer eligible based on patient's age to complete this topic Procedures Procedure Name Priority Date/Time Associated Diagnosis Comments URINALYSIS, COMPLETE, WITH REFLEX TO CULTURE Routine 08/26/2025 2:02 PM EDT URINALYSIS WITH REFLEX MICROSCOPIC Routine 08/26/2025 2:02 PM EDT HIGH SENSITIVITY TROPONIN I Routine 08/26/2025 12:40 PM EDT HCG, TOTAL, QN Routine 08/26/2025 12:40 PM EDT LIPASE Routine 08/26/2025 12:40 PM EDT COMPREHENSIVE METABOLIC PANEL Routine 08/26/2025 12:40 PM EDT CBC WITH AUTO DIFFERENTIAL Routine 08/26/2025 12:40 PM EDT SCALING IN PRESENCE OF MOD-SEVERE GING INFL - FULL MOUTH, AFTER ORAL EVAL Routine 08/10/2025 10:00 AM EDT Dental calculus Periodontal disease Subgingival dental calculus CASE PRESENTATION, DETAILED AND EXTENSIVE TREATMENT PLANNING Routine 08/10/2025 10:00 AM EDT ORAL HYGIENE INSTRUCTIONS Routine 08/10/2025 10:00 AM EDT Dental calculus Periodontal disease Subgingival dental calculus BITEWINGS - 4 RADIOGRAPHIC IMAGES Routine 08/10/2025 10:00 AM EDT Subgingival dental calculus COMPREHENSIVE PERIODONTAL EVALUATION - NEW OR ESTABLISHED PATIENT Routine 08/10/2025 10:00 AM EDT Encounter for dental examination Dental calculus Periodontal disease Dental plaque PERIODIC ORAL EVALUATION - ESTABLISHED PATIENT Routine 08/10/2025 10:00 AM EDT Encounter for dental examination Dental calculus Periodontal disease Dental plaque POCT , URINE Routine 07/14/2025 10:08 AM EDT Depo-Provera contraceptive status POCT , URINE Routine 06/13/2025 10:45 AM EDT Encounter for initial prescription of injectable contraceptive HCG, TOTAL, QN Routine 06/02/2025 8:14 AM EDT Miscarriage LIPID PANEL, STANDARD Routine 06/02/2025 8:14 AM EDT Class 1 obesity without serious comorbidity with body mass index (BMI) of 30.0 to 30.9 in adult, unspecified obesity type BI MAMMOGRAM SCREENING TOMOSYNTHESIS BILATERAL Routine 02/22/2025 11:17 AM EDT HEPATITIS C AB W/REFL TO HCV RNA, QN, PCR Routine 01/11/2025 10:27 AM EST Lower abdominal pain HIV 1/2 ANTIGEN/ANTIBODY, FOURTH GENERATION W/RFL Routine 01/11/2025 10:27 AM EST Lower abdominal pain PROPHYLAXIS - ADULT Routine 01/03/2025 9 :00 AM EST Dental calculus Dental plaque Subgingival dental calculus INTRAORAL - COMPLETE SERIES OF RADIOGRAPHIC IMAGES Routine 05/24/2024 10:30 AM EDT HPV MRNA E6/E7 REFLEX TO HPV 16, 18/45 Routine 01/26/2024 2:03 PM EDT PAP SMEAR Routine 01/26/2024 2:03 PM EDT from Last 3 Months or Most Recently Relevant to Health Maintenance Results * (ABNORMAL) Urinalysis, Complete, with Reflex to Culture (08/26/2025 2:02 PM EDT) Color Urine Yellow [facility] Appearance Urine Clear [facility] PH 6.0 5.0 - 9.0 [facility] Glucose Urine UA Negative Negative mg/dL [facility] Urine Blood Trace(A) Negative [facility] Specific Cinebar - Urine 1.015 1.005 - 1.025 [facility] Urine Protein Negative Neg-Trace mg/dL [facility] Urine Ketones Negative Negative mg/dL [facility] Nitrite Urine Negative Negative [facility] Leukocyte Esterase Urine Small (1+)(A) Negative [facility] RBC Urine 0-2 0 - 2 /HPF [facility] Urine WBC 11-20(A) 0 - 5 /HPF [facility] Urine Squamous Epithelial Cell 3-5 0 - 2 /HPF [facility] Urine Bacteria None Seen None Seen [facility] Hyaline Casts, Urine 0-2 0 - 2 /LPF [facility] 08/26/2025 2:02 PM EDT 08/26/2025 2:04 PM EDT Narrative [facility] - 08/26/2025 2:17 PM EDT Urine, Clean Catch us Generic External Data Provider LAB URINE ORDERAB LES Final Result Performing Organization Address City/State/[facility] Co de Phone Number [facility] [address] [place] [phone] * (ABNORMAL) Urinalysis w/reflex microscopic (08/26/2025 2:02 PM EDT) Color Urine Yellow [facility] Appearance Urine Clear [facility] PH 6.0 5.0 - 9.0 [facility] Glucose Urine UA Negative Negative mg/dL [facility] Urine Blood Trace(A) Negative [facility] Specific Cinebar - Urine 1.015 1.005 - 1.025 [facility] Urine Protein Negative Neg-Trace mg/dL [facility] Urine Ketones Negative Negative mg/dL [facility] Nitrite Urine Negative Negative [facility] Leukocyte Esterase Urine Small (1+)(A) Negative [facility] 08/26/2025 2:02 PM EDT 08/26/2025 2:04 PM EDT Narrative [facility] - 08/26/2025 2:10 PM EDT Urine, Clean Catch Generic External Data Provider LAB URINE ORDERAB LES Final Result Performing Organization Address [facility] Co de Phone Number [facility] [address] [place] [phone] * High Sensitivity Troponin I (08/26/2025 12:40 PM EDT) [facility] TROPONIN I HIGH SENSITIVITY <2.7 <3.5 - 17.0 ng/L [facility] Comment:The Mares high sens itivity Troponin-I results should beused in conjunction with other diagnostic information suchas ECG, clinical observations and information, and patientsymptoms to aid in the diagnosis of AL. 08/26/2025 12:4 0 PM EDT 08/26/2025 12:46 PM EDT Generic External Data Provider LAB BLOOD ORDERAB LES Final Result Performing Organization Address [facility] Co de Phone Number [facility] [address] [place] [phone] * CBC auto differential (08/26/2025 12:40 PM EDT) White Blood Count 6.0 4.8 - 10.8 X10*3/uL [facility] Red Blood Count 4.38 4.20 - 5.50 X10*6/uL [facility] Hemoglobin 13.0 12.0 - 16.0 g/dl [facility] Hematocrit 39.9 37.0 - 47.0 % [facility] Mean Corpuscular Volume 91.1 80.0 - 98.0 fL [facility] Mean Corpuscular Hemoglobin 29.7 27.0 - 33.0 pg [facility] Mean Corpuscular HGB Conc 32.6 31.0 - 35.0 g/dl [facility] Red Cell Distribution Width 14.2 11.0 - 16.0 % [facility] Platelet Count 302 160 - 400 X10*3/uL [facility] Mean Platelet Volume 10.1 9.4 - 12.3 fL [facility] Neutrophils Percent Auto 53.5 45 - 73 % [facility] Imm Gran Pct Auto 0.2 0.0 - 0.4 % [facility] Lymphocytes Percent Auto 36.0 20 - 40 % [facility] Monocytes Percent Auto 7.5 2 - 11 % [facility] Eosinophils Percent Auto 1.8 0 - 4 % [facility] Basophils Percent Auto 1.0 0 - 2 % [facility] NRBC Pct Auto 0.0 0.0 - 0.2 /100WBC [facility] Neutrophils Absolute Auto 3.2 2.0 - 8.3 x10*3/uL [facility] Imm Gran Abs Auto 0.01 0.00 - 0.03 X10*3/uL [facility] Lymphocytes Absolute Auto 2.2 1.2 - 4.9 X10*3/uL [facility] Monocytes Absolute Auto 0.5 0.1 - 1.2 X10*3/uL [facility] Eosinophils Absolute Auto 0.1 0.0 - 0.4 X10*3/uL [facility] Basophils Absolute Auto 0.1 0.0 - 0.2 X10*3/uL [facility] NRBC Abs Auto 0.000 0.0 - 0.012 X10*3/uL [facility] 08/26/2025 12:4 0 PM EDT 08/26/2025 12:46 PM EDT us Generic External Data Provider LAB BLOOD ORDERAB LES Final Result [facility] [address] [place] [phone] [phone] * hCG, Total, Quantitative (08/26/2025 12:40 PM EDT) Only the most recent of2 resultswithin the time period is included. HCG Quantitative <2 mIU/mL [facility] Comment:Weeks post LMP Appro ximate hCG(Last Menstrual Period) Range (mIU/ml)3 - 4 weeks 9 - 1304 - 5 weeks 75 - 2,6005 - 6 weeks 850 - 20,8006 - 7 weeks 4000 - 100,2007 - 12 weeks 11,500 - 289,09201 - 16 weeks 18,300 - 137,30223 - 29 weeks (2nd trimester) 1,400 - 53,67594 - 41 weeks (3rd trimester) 940 - 60,000The Mares B- hCG assay is used for the early detection ofpregnancy; it cannot be used to diagnose any conditionunrelated to . If a B-hCG level is not supportedby the clinical evidence, results should be confirmed by analternative method (qualitative urine hCG, for example). 08/26/2025 12:4 0 PM EDT 08/26/2025 12:46 PM EDT us Generic External Data Provider LAB BLOOD ORDERAB LES Final Result Performing Organization Address City/[facility]/ZIP Co de Phone Number [facility] [address] [place] [address] [phone] * Lipase (08/26/2025 12:40 PM EDT) Lipase 17 8 - 78 U/L [facility] 08/26/2025 12:4 0 PM EDT 08/26/2025 12:46 PM EDT Generic External Data Provider LAB BLOOD ORDERAB LES Final Result Performing Organization Address City/[facility]/ZIP Co de Phone Number [facility] [address] [place] [phone] * (ABNORMAL) Comprehensive Metabolic Panel (08/26/2025 12:40 PM EDT) Sodium 143 135 - 145 mmol/L [facility] Potassium 3.4 3.3 - 5.1 mmol/L [facility] Chloride 112(H) 96 - 108 mmol/L [facility] Carbon Dioxide 23 22 - 29 mmol/L [facility] Anion Gap 11(L) 12 - 20 [facility] Urea Nitrogen (BUN) 10 9 - 16 mg/dL [facility] Creatinine, Serum 0.66 0.5 - 1.4 mg/dL [facility] Creatinine Clr Calc Pharmacy 114.1 [facility] Comment:Provided height and weight: 170 cm,75.478 kg.eGFR (calculated from the MDRD study equation) and eCrCl(calculated from the Cockcroft-Gault equation) are based ondifferent parameters and may not yield comparable results.If eCrCl result is absurd, please check patient'sheight/weight. Estimated Glomerular Filt Rate >60 [facility] Comment:Chronic Kidney Disea se: Estimated GFR < 60 mL/min/1.42t8Pdespe Kidney Disease: Estimated GFR < 15 mL/min/1.73m2 Glucose 106 60 - 115 mg/dL [facility] Calcium 9.2 8.4 - 10.2 mg/dL [facility] Bilirubin, Total 0.8 0.0 - 1.0 mg/dL [facility] Aspartate Amino Transferase 31 5 - 31 U/L [facility] Alanine Aminotransferase 55(H) 0 - 31 U/L [facility] Total Protein 7.5 6.5 - 8.0 g/dL [facility] Albumin Level 4.5 3.5 - 5.0 g/dL [facility] Alkaline Phosphatase 70 39 - 117 U/L [facility] 08/26/2025 12:4 0 PM EDT 08/26/2025 12:46 PM EDT us Generic External Data Provider LAB BLOOD ORDERAB LES Final Result [facility] [address] [place] [phone] * POCT Urine (07/14/2025 10:08 AM EDT) Only the most recent of2 resultswithin the time period is included. Preg Test, Ur Negative Negative, Indeterminate, None Detected, Invalid, Specimen unsatisfactory for evaluation, Weakly Positive, 2+ QC Media Lot # [id number] Lot# Expiration Date [id number] Urine 07/14/2025 10:0 8 AM EDT us Kathya Rangel MD POINT OF CARE TEST ENTER /EDIT ORDERABLES Final Result * Lipid Panel, Standard (06/02/2025 8:14 AM EDT) Triglycerides 130 <150 mg/dL [facility] Comment:Desirable Triglyceri de: less than 150 mg/dLBorderline High Triglyceride 150-199 mg/dLHigh Triglyceride: 200-499 mg/dLVery High Triglyceride: greater than or equal to 5OO mg/dL Cholesterol 184 <200 mg/dL [facility] Comment:Desirable Cholestero l: less than 200 mg/dLBorderline High Cholesterol: 200-239 mg/dLHigh Cholesterol: greater than 239 mg/dL LDL Cholesterol Calculated 99 <100 mg/dL [facility] Comment:Desirable LDL: less than 100 mg/dLNear Optimal/Above Optimal LDL: 110- 129 mg/dLBorderline High LDL: 130-159 mg/dLHigh LDL: 160-189 mg/dLVery High LDL: greater than or equal to 190 mg/dL HDL Cholesterol 59 >40 mg/dL [facility] Comment:Desirable HDL: great er than 40 mg/dL Note: This HDL assay may give artificially low results in patients with liver disease. Blood Venous blood specimen / Unknown 06/02/2025 8:14 AM EDT 06/02/2025 11:24 AM EDT us Mary Lou Guzman MD LAB BLOOD ORDERABLES Final Res ult [facility] [address] [facility] [place] [address] [phone] * BI Mammogram Screening Tomosynthesis Bilateral (02/22/2025 11:17 AM EDT) Anatomical Region Laterality Modality Breast Bilateral Mammography 02/22/2025 11:1 7 AM EDT Narrative 03/04/2025 2:[address] PM EDT [facility] [address] [place] [address] Mammography Report Signed Patient: Kathya Hair MR#: [id number] : 1980 Acct:[id number] Age/Sex: 44 / F ADM Date: 02/22/25 Loc: [facility] Attending Dr: Nathaly Post CNM Ordering Physician: Mary Lou Guzman Results: 1Negative Date of Service: 02/22/25 Follow Up: 1 Year From [facility] Mammogram Procedure(s): MM tomosynthesis screening BI Accession Number(s): [id number] cc: Mary Lou Guzman EXAMINATION: MM SCREENING [...] DO 03/04/2025 02:02 PM EDT Dictated By: Tyminski,Violet DO Signed By: <Electronically signed by Violet Boykin DO in OV> 03/04/25 1402 DD/ 1117 TD/TT: 02/22/25 1141 Risk Control Director: Procedure Note Donotameliainterpreter, Image - [facility] [address] [place], [place] [address] Mammography Report Signed Patient: Moreno Hair#: [id number] : 1980Acct:[id number] Age/Sex: 44 / FADM Date: 02/22/25 Loc: HO.MAMMO Attending Dr: Nathaly Post CNM Ordering Physician: Colleen Guzmanults: 1Negative Date of Service: 02/22/25Follow Up: 1 Year From Orig inal Mammogram Procedure(s): MM tomosynthesis screening BI Accession Number(s): [id number] cc: Mary Lou Guzman EXAMINATION: MM SCREENING [...] 03/04/25 1402 DD/ 1117 TD/TT: 02/22/25 1141 Risk Control Director: Mary Lou Guzman MD IMG BI PROCEDURES Edited Resul t - Final * (ABNORMAL) Hepatitis C Antibody with Reflex to HCV, RNA, Quantitative, Real- Time PCR (01/11/2025 10:27 AM EST) Hepatitis C Antibody Reactive( A) Nonreactive [facility] Comment:Presumptive evidence of antibodies to HCV. Blood Venous blood specimen / Unknown 01/11/2025 10:27 AM EST 01/11/2025 11:24 AM EST Mary Lou Guzman MD LAB BLOOD ORDERABLES Final Res ult Performing Organization Address [facility] Co de Phone Number [facility] [address] [place] [phone] * HIV-1/2 Antigen and Antibodies, Fourth Generation, with Reflexes (01/11/2025 10:27 AM EST) HIV AB/AG Nonreactive Nonreactive [facility] Comment:HIV-1 p24 Ag and/or HIV-1/HIV-2 Ab not detected.A test result that is nonreactive does not exclude thepossibility of exposure to or infection with HIV-1 and/orHIV-2. Nonreactive results in this assay for individualswith prior exposure to HIV-1 and/or HIV-2 may be due toantigen and antibody levels that are below the limit ofdetection of this assay.The artaculousniPerosphere HIV Ag/Ab Combo assay result andsupplemental assay results should be interpreted inconjunction with the patient's clinical presentation,history and other laboratory results. If the results areinconsistent with clinical evidence, additional testing issuggested to confirm the result. Blood Venous blood specimen / Unknown 01/11/2025 10:27 AM EST 01/11/2025 11:24 AM EST Mary Lou Guzman MD LAB BLOOD ORDERABLES Final Res ult Performing Organization Address City/[facility]/ZIP Co de Phone Number [facility] [address] [place] [phone] * HPV mRNA E6/E7 w/Reflex to HPV Genotypes 16, 18/45 (01/26/2024 2:03 PM EDT) HPV nRNA E6/E7 Not Detected Not Detected [facility] Comment:Methodology: Transcr iption-Mediated AmplificationThis assay detects E6/E7 viral messenger RNA (mRNA) from 14high-risk HPV types (16,18,31,33,35,39,45,51,52,56,58,59,66,68).Cervical sources are required for HPV testing.If a vaginal source from a patient who has had atotal hysterectomy with removal of cervix wassubmitted, please contact the testing laboratoryfor alternative testing options.For additional information, please refer tohttp://education.Teak/faq/SLD753h7(This link if provided for information/educational purposes only.)THIS TEST WAS PERFORMED AT:[employer] [place] [phone] OMER MD HPV mRNA E6/E7 [facility] HPV 16 RNA [facility] HPV 18/45 RNA [facility] 01/26/2024 2:03 PM EDT 01/27/2024 10:20 AM EDT Catherine Mcad[facility] CYTOLOGY ORDERABLES Final Result [facility] [address] [place] [address] [phone] * Pap Smear (01/26/2024 2:03 PM EDT) 01/26/2024 2:03 PM EDT 01/27/2024 10:20 AM EDT Narrative [facility] - 02/06/2024 6:54 AM EDT ----- ------- Name: Kathya Hair Age/Sex: 43/F [facility] 1980 [id number]#: [id number] Attend Dr: CATHERINE MCADAMS NP Re01/26/24 Status: DEP REF Location: [facility] Disch: ----- ------- SPEC : [id number] RECD: 01/27/24-1020 STATUS: LOUISE ABI NUM: [id number] ROYA: 01/26/24-[address] [facility] [address]: CATHERINE MCADAMS NP ENTERED: 01/27/24-1221 SP TYPE: Pap Smr OTHR VELAZQUEZ: ORDERED: Pap Smear Interpretation Satisfactory for evaluation. Negative for intraepithelial lesion or malignancy. HPV mRNA E6/E7: NOT DETECTED This assay detects E6/E7 viral messenger RNA (mRNA) from 14 high-risk HPV types (16, 18, 31, 33, 35, 39, 45, 51, 52, 56, 58, 59, 66, 68) HPV testing performed by [employer], [place], [place]. See reference laboratory portion of the EMR for entire report. Clinical Information LMP: 01/20/2024 Previous PAP test: Unknown date, WNL Other history: No known hx of HPV or ASCUS, lower abdominal pain Material Received ThinPrep-Vaginal/Cervical ----- ------- Signed (signature on file) ARUN Meeks ([facility]) 02/06/24 0654 ----- ------- END OF REPORT Catherine Mcadams [facility] CYTOLOGY ORDERABLES Final Result [facility] [address] [place] [phone] from Last 3 Months or Most Recently Relevant to Health Maintenance Insurance [employer] LIMITED HS FULL DENTAL - HSN FULL (MEDICAID) [facility] ADULT Care Teams Railroad Auditor Relationship Specialty Start Date End Date Mary Lou Guzman MD [address] [place] [address] [place] [phone] PCP - General Family Medicine 01/11/25
--- OUTSIDE RECORDS SUMMARY | 2025-08-26 16:06 | XMS_ITS | Encounter Summary ---
Author Organization [employer] Address [address] [facility] [address] [place] [address] Care Team Providers Care Veneer Measurer Name Role Phone Mary Lou Guzman MD Primary Care Provider [phone] Encounter Details Date Type Department Care Team ([facility] st Contact Info) Description 05/23/2025 Orders Only [facility] [address], [place] [phone] Mary Lou Guzman MD [address] [place], [place] [phone] Early stage of (Primary Dx) Social History [...] Upcoming Encounters Date Type Department Care Team ([facility] st Contact Info) Description 09/05/2025 9:30 AM EDT Clinical Support [address] [address] Scheduled Orders Name Type Priority Associated Diagnoses [...] 8:08 AM EDT) HCG Quantitative 172 mIU/mL [facility] Comment:Weeks post LMP Appro ximate hCG(Last Menstrual Period) Range (mIU/ml)3 - 4 weeks 9 - 1304 - 5 weeks 75 - 2,6005 - 6 weeks 850 - 20,8006 - 7 weeks 4000 - 100,2007 - 12 weeks 11,500 - 289,27227 - 16 weeks 18,300 - 137,03202 - 29 weeks (2nd trimester) 1,400 - 53,05756 - 41 weeks (3rd trimester) 940 - [...] MD LAB BLOOD ORDERABLES Final Res ult [facility] [address] [place] [phone] documented in this encounter Visit Diagnoses Diagnosis Early stage of - Primary state, incidental documented in this encounter Additional Health Concerns Assessment Noted Time PHQ-9 Depression Total Score: 0 01/12/20 9:20 AM EST documented as of this encounter Care Teams Veneer Measurer Relationship Specialty Start Date End Date Mary Lou Guzman MD [address] [place] [phone] PCP - General Family Medicine 01/11/25 documented as of this encounter
--- OUTSIDE RECORDS SUMMARY | 2025-08-26 16:06 | XMS_ITS | Encounter Summary ---
Author Organization [employer] Address [address] [facility] [address] [place] [address] Care Team Providers Care Surveyor Chain Helper Name Role Phone Mary Lou Guzman MD Primary Care Provider [phone] Encounter Details Date Type Department Care Team (Late st Contact Info) Description 08/26/2025 Orders Only GENERIC EXTERNAL DATA [...] Description 09/05/2025 9:30 AM EDT Clinical Support [address] [address] documented as of this encounter Procedures Procedure Name Priority Date/Time Associated Diagnosis Comments URINALYSIS, COMPLETE, WITH REFLEX TO CULTURE Routine 08/26/2025 2:02 PM EDT URINALYSIS WITH REFLEX MICROSCOPIC Routine 08/26/2025 2:02 PM EDT HIGH SENSITIVITY TROPONIN I Routine 08/26/2025 12:40 PM EDT CBC WITH AUTO DIFFERENTIAL Routine 08/26/2025 12:40 PM EDT HCG, TOTAL, QN Routine 08/26/2025 12:40 PM EDT LIPASE Routine 08/26/2025 12:40 PM EDT COMPREHENSIVE METABOLIC PANEL Routine 08/26/2025 12:40 PM EDT documented in this encounter Results * (ABNORMAL) Urinalysis, Complete, with Reflex to Culture (08/26/2025 2:02 PM EDT) Color Urine Yellow [facility] Appearance Urine Clear [facility] PH 6.0 5.0 - 9.0 [facility] Glucose Urine UA Negative Negative mg/dL [facility] Urine Blood Trace(A) Negative [facility] Specific Vega - Urine 1.015 1.005 - 1.025 [facility] Urine Protein Negative Neg-Trace mg/dL [facility] Urine Ketones Negative Negative mg/dL [facility] Nitrite Urine Negative Negative [facility] Leukocyte Esterase Urine Small (1+)(A) Negative [facility] RBC Urine 0-2 0 - 2 /HPF [facility] Urine WBC 11-20(A) 0 - 5 /HPF [facility] Urine Squamous Epithelial Cell 3-5 0 - 2 /HPF [facility] Urine Bacteria None Seen None Seen [facility] Hyaline Casts, Urine 0-2 0 - 2 /LPF [facility] 08/26/2025 2:02 PM EDT 08/26/2025 2:04 PM EDT Narrative [facility] - 08/26/2025 2:17 PM EDT Urine, Clean Catch us Generic External Data Provider LAB URINE ORDERAB LES Final Result [facility] [address] [place] [address] [phone] * (ABNORMAL) Urinalysis w/reflex microscopic (08/26/2025 2:02 PM EDT) Color Urine Yellow [facility] Appearance Urine Clear [facility] PH 6.0 5.0 - 9.0 [facility] Glucose Urine UA Negative Negative mg/dL [facility] Urine Blood Trace(A) Negative [facility] Specific Vega - Urine 1.015 1.005 - 1.025 [facility] Urine Protein Negative Neg-Trace mg/dL [facility] Urine Ketones Negative Negative mg/dL [facility] Nitrite Urine Negative Negative [facility] Leukocyte Esterase Urine Small (1+)(A) Negative [facility] 08/26/2025 2:02 PM EDT 08/26/2025 2:04 PM EDT Narrative [facility] - 08/26/2025 2:10 PM EDT Urine, Clean Catch Generic External Data Provider LAB URINE ORDERAB LES Final Result Performing Organization Address [facility] de Phone Number [facility] [address] [place] [phone] * High Sensitivity Troponin I (08/26/2025 12:40 PM EDT) Pathologist [facility] TROPONIN I HIGH SENSITIVITY <2.7 <3.5 - 17.0 ng/L [facility] Comment:The Mares high sens itivity Troponin-I results should beused in conjunction with other diagnostic information suchas ECG, clinical observations and information, and patientsymptoms to aid in the diagnosis of CA. 08/26/2025 12:4 0 PM EDT 08/26/2025 12:46 PM EDT Generic External Data Provider LAB BLOOD ORDERAB LES Final Result Performing Organization Address [facility] de Phone Number [facility] [address] [place] [phone] * hCG, Total, Quantitative (08/26/2025 12:40 PM EDT) Pathologist [facility] HCG Quantitative <2 mIU/mL [facility] Comment:Weeks post LMP Appro ximate hCG(Last Menstrual Period) Range (mIU/ml)3 - 4 weeks 9 - 1304 - 5 weeks 75 - 2,6005 - 6 weeks 850 - 20,8006 - 7 weeks 4000 - 100,2007 - 12 weeks 11,500 - 289,76767 - 16 weeks 18,300 - 137,54185 - 29 weeks (2nd trimester) 1,400 - 53,56139 - 41 weeks (3rd trimester) 940 - [...] LAB BLOOD ORDERAB LES Final Result [facility] [address] [place] [phone] * Lipase (08/26/2025 12:40 PM EDT) Lipase 17 8 - 78 U/L [facility] 08/26/2025 12:4 0 PM EDT 08/26/2025 12:46 PM EDT Generic External Data Provider LAB BLOOD ORDERAB LES Final Result Performing Organization Address [facility]/ZIP Co de Phone Number [facility] [address] [place] [phone] * (ABNORMAL) Comprehensive Metabolic Panel (08/26/2025 12:40 PM EDT) Pathologist [facility] Sodium 143 135 - 145 mmol/L [facility] Potassium 3.4 3.3 - 5.1 mmol/L [facility] Chloride 112(H) 96 - 108 mmol/L [facility] Carbon Dioxide 23 22 - 29 mmol/L [facility] Anion Gap 11(L) 12 - 20 [facility] Urea Nitrogen (BUN) 10 9 - 16 mg/dL [facility] Creatinine, Serum 0.66 0.5 - 1.4 mg/dL [facility] Creatinine Clr Calc Pharmacy 114.1 [facility] Comment:Provided height and weight: 170 cm,75.478 kg.eGFR (calculated from the MDRD study equation) and eCrCl(calculated from the Cockcroft-Gault equation) are based ondifferent parameters and may not yield comparable results.If eCrCl result is absurd, please check patient'sheight/weight. Estimated Glomerular Filt Rate >60 [facility] Comment:Chronic Kidney Disea se: Estimated GFR < 60 mL/min/1.72r7Yuwizs Kidney Disease: Estimated GFR < 15 mL/min/1.73m2 Glucose 106 60 - 115 mg/dL [facility] Calcium 9.2 8.4 - 10.2 mg/dL [facility] Bilirubin, Total 0.8 0.0 - 1.0 mg/dL [facility] Aspartate Amino Transferase 31 5 - 31 U/L [facility] Alanine Aminotransferase 55(H) 0 - 31 U/L [facility] Total Protein 7.5 6.5 - 8.0 g/dL [facility] Albumin Level 4.5 3.5 - 5.0 g/dL [facility] Alkaline Phosphatase 70 39 - 117 U/L [facility] 08/26/2025 12:4 0 PM EDT 08/26/2025 12:46 PM EDT us Generic External Data Provider LAB BLOOD ORDERAB LES Final Result [facility] [address] [place] [phone] * CBC auto differential (08/26/2025 12:40 PM EDT) White Blood Count 6.0 4.8 - 10.8 X10*3/uL [facility] Red Blood Count 4.38 4.20 - 5.50 X10*6/uL [facility] Hemoglobin 13.0 12.0 - 16.0 g/dl [facility] Hematocrit 39.9 37.0 - 47.0 % [facility] Mean Corpuscular Volume 91.1 80.0 - 98.0 fL [facility] Mean Corpuscular Hemoglobin 29.7 27.0 - 33.0 pg [facility] Mean Corpuscular HGB Conc 32.6 31.0 - 35.0 g/dl [facility] Red Cell Distribution Width 14.2 11.0 - 16.0 % [facility] Platelet Count 302 160 - 400 X10*3/uL [facility] Mean Platelet Volume 10.1 9.4 - 12.3 fL [facility] Neutrophils Percent Auto 53.5 45 - 73 % [facility] Imm Gran Pct Auto 0.2 0.0 - 0.4 % [facility] Lymphocytes Percent Auto 36.0 20 - 40 % [facility] Monocytes Percent Auto 7.5 2 - 11 % [facility] Eosinophils Percent Auto 1.8 0 - 4 % [facility] Basophils Percent Auto 1.0 0 - 2 % [facility] NRBC Pct Auto 0.0 0.0 - 0.2 /100WBC [facility] Neutrophils Absolute Auto 3.2 2.0 - 8.3 x10*3/uL [facility] Imm Gran Abs Auto 0.01 0.00 - 0.03 X10*3/uL [facility] Lymphocytes Absolute Auto 2.2 1.2 - 4.9 X10*3/uL [facility] Monocytes Absolute Auto 0.5 0.1 - 1.2 X10*3/uL [facility] Eosinophils Absolute Auto 0.1 0.0 - 0.4 X10*3/uL [facility] Basophils Absolute Auto 0.1 0.0 - 0.2 X10*3/uL [facility] NRBC Abs Auto 0.000 0.0 - 0.012 X10*3/uL [facility] 08/26/2025 12:4 0 PM EDT 08/26/2025 12:46 PM EDT us Generic External Data Provider LAB BLOOD ORDERAB LES Final Result [facility] [address] [place] [phone] documented in this encounter Visit Diagnoses Not on filedocumented in this encounter Additional Health Concerns Assessment Noted Time PHQ-9 Depression Total Score: 0 06/01/20 25 3:56 PM EDT documented as of this encounter Care Teams Surveyor Chain Helper Relationship Specialty Start Date End Date Mary Lou Guzman MD [address] [place] [address] PCP - General Family Medicine 01/11/25 documented as of this encounter
[2025-08-26 16:37] VITALS: BP 128/60; PULSE 93; RESP 16; TEMP 36.6; O2SAT 100
== END 2025-08-26 16:38 | disposition home or self-care (01) ==
PROVIDERS: Physician Assistant; Emergency Provider Emergency Medicine; PCP General Practice
DX: N39.0 Urinary tract infection, site not specified (principal); R10.30 Lower abdominal pain, unspecified; R30.0 Dysuria; R51.9 Headache, unspecified; R11.0 Nausea; R10.22 Pelvic and perineal pain left side; Z79.899 Other long term (current) drug therapy
CPT/HCPCS: 36415; 80053; 81001; 83690; 84484; 84702; 85025; 87086; 87147; 93005; 99283; 99284

== ENCOUNTER → 2025-08-26 12:32 | Outpatient (BNV) | payer MEDICAID, SELFPAY | PROVIDERS: Emergency Provider Emergency Medicine; PCP General Practice; Visit Provider Internal Medicine Cardiovascular Disease | DX: R42 Dizziness and giddiness (principal) | CPT/HCPCS: 93010 ==